=== PATIENT | male | born 1975 | race African-American/Black ===

== ENCOUNTER 2017-12-05 19:52 | Inpatient (IN) ==
[2017-12-05] MEDS ORDERED: Isovue-370 500 ML INFUS..BTL IV ONE (20:29)
[2017-12-05] MEDS ORDERED: Ondansetron 4 MG/2 ML VIAL IVP ONE (20:30)
[2017-12-05] MEDS ORDERED: *HR* FentaNYL (PF) 100 MCG/2 ML VIAL IVP ONE (20:30)
--- NOTE | 2017-12-05 20:31 | Emergency Department Note ---
Disposition Clinical Impression: SAGE (acute kidney injury), Left-sided chest wall pain UTI (urinary tract infection) Qualifiers: Urinary tract infection type: acute cystitis Hematuria presence: without hematuria Qualified Code(s): N30.00 - Acute cystitis without hematuria Disposition: Admitted As Inpatient Condition: Good Time of Disposition: 00:19 General Adult HPI - General Chief complaint: ED Abdominal Pain Stated complaint: L Flank Pain Time Seen by Provider: 12/05/17 20:01 Source: patient Limitations: no limitations Nursing Notes Reviewed: Yes Vital Signs Reviewed: Yes - History of Present Illness HPI Narrative: Patient seen yesterday here for left-sided back pain. States is been present for 2 days. Presenting with worsening of the pain. States it is in his left back and radiates around to his chest. Denies any shortness of breath. He reported episode of vomiting associated with this earlier today. No provoking or alleviating factors. Pain Scale: 0 - Related Data Home Medications Medication Instructions Recorded Confirmed Novolin 70-30 100 Unit/ml Vial 11/10/15 11/10/15 Insulin Glargine,Hum.rec.anlog 40 unit SQ DAILY 12/06/17 12/06/17 [Basaglar Kwikpen U-100] Losartan Potassium [Cozaar] 50 mg PO DAILY 12/06/17 12/06/17 hydrALAZINE [HydrALAZINE] 25 mg PO Q8HR 12/06/17 12/06/17 Previous Rx's Medication Instructions Recorded Furosemide [Lasix] 40 mg PO BID #14 tablet 12/03/17 NIFEdipine XL (24 HR) [Procardia 60 mg PO BID #60 tab.er.24 12/03/17 XL] Potassium Chloride 10 meq PO BID #14 tab.er.prt 12/03/17 Allergies Allergy/AdvReac Type Severity Reaction Status Date / Time No Known Allergies Allergy Verified 12/05/17 19:58 All systems ED: reviewed and negative except as stated. Constitutional: Reports: chills Cardiovascular: Denies: chest pain, syncope Respiratory: Denies: cough, dyspnea Gastrointestinal: Reports: nausea, vomiting. Denies: abdominal pain, diarrhea, hematemesis, melena, hematochezia Genitourinary: Denies: urgency, dysuria, frequency Musculoskeletal: Reports: back pain (Left upper) Integumentary: Denies: rash Neurological: Denies: weakness Past Medical History - Past Medical History Attestation: Yes The following information was validated with the patient. Source: patient Medical history: Reports: diabetes, hypertension Surgical history: Reports: cholecystectomy (Smokes marijuana) Psychiatric history: Reports: no psych history - Social History Smoking Status: Never smoker Smokeless Tobacco Status: No Alcohol use: Reports: none Drug use: Reports: none Physical Exam - General Limitations: no limitations General appearance: alert, in distress (Appears to be in pain. ) - Head Head exam: atraumatic, normocephalic, normal inspection - Eye Eye exam: Present: normal appearance, PERRL, EOMI - ENT ENT exam: normal exam, normal oropharynx, mucous membranes moist - Neck Neck exam: Present: normal inspection, full ROM, trachea midline - Chest Chest inspection: Present: normal inspection, symmetric chest wall rise. Absent : tenderness - Respiratory Respiratory exam: Present: normal lung sounds bilaterally. Absent: respiratory distress, accessory muscle use - Cardiovascular Cardiovascular exam: Present: regular rate, normal rhythm, normal heart sounds - Abdominal Exam Abdominal exam: Present: soft, Non-Tender. Absent: distention, guarding, rebound, rigidity, Ortega's sign, Rovsing's sign, tenderness at McBurney's Point - Extremities Exam Extremities exam: Present: normal inspection, full ROM, normal capillary refill. Absent: tenderness, pedal edema - Back Exam Back exam: Present: tenderness (Extreme tenderness to light palpation of the skin to the left back. Does appear to be in a dermatomal fashion. I am concerned there may be a possible erupting zoster. No rash present currently. Denies any tingling sensation.) - Neurological Exam Neurological exam: Present: alert, oriented X3 - Psychiatric Psychiatric exam: Present: normal affect, normal mood - Skin Skin exam: Present: warm, dry, intact, normal color. Absent: rash, cyanosis, diaphoresis, erythema Course Course Narrative: Male patient presenting to the emergency department complaining of left-sided back pain that radiates around into his chest area. Patient states he was seen here previously for this pain. Approximately 2 days ago. Patient complains of 4 episodes of vomiting earlier today. None since he has been here. Patient did have a CT of his abdomen on December 04 yesterday that showed bladder wall thickening. He does not have any signs of a UTI. He denies any urinary symptoms. Denies any abdominal pain at this time. He complains of the pain being mostly to his left back. When I were reviewed the notes from yesterday he describes the pain at that time as a tearing sensation. I did have a concern for possible aneurysms a CTA was performed of his chest and abdomen. This showed no signs of aneurysm. It showed some thickening of his bladder wall. Again no signs of urinary symptoms or UTI however we will send a urine at this time. Patient's lab workup is unremarkable. He did have a leukocytosis it is coming down. He does report some chills but no fever. Abdomen is soft and nontender on exam. The place where he points to his back that it hurts it is exquisitely tender to light palpation. As soon as I placed my fingers on his skin he describes pain. This is not bilateral. This is on the left side of his back and comes around to the side. There is no sternal pain. He denies any chest pain or shortness of breath. He does report pain to his back whenever he takes a deep breath however. There are no signs of zoster at this time however I am concerned that this may be erupting. Patient does have a healing ulcer as well to his right lower extremity. This appears well and not infected. We have provided patient with pain relief as well as anti- emetics. - Consultations Consultation #1: Dr Crespo accepted Pt in stable condition. Time: 23:49 Vital Signs Temperature 98.8 F 12/05/17 19:58 Pulse Rate 84 12/05/17 19:58 Respiratory Rate 20 12/05/17 19:58 Blood Pressure 130/76 12/05/17 19:58 O2 Sat by Pulse Oximetry 98 12/05/17 19:58 Temperature 99.2 F 12/06/17 03:58 Pulse Rate 83 12/06/17 03:58 Respiratory Rate 18 12/06/17 03:58 Blood Pressure 116/74 12/06/17 03:58 O2 Sat by Pulse Oximetry 93 12/06/17 03:58 Oxygen Delivery Oxygen Delivery Room Air Medical Decision Making - Medical Records Medical records reviewed: Yes I reviewed the patient's medical records. - Lab Data Lab results reviewed: Yes I reviewed the patient's lab results. Result diagrams: 12/06/17 01:42 12/06/17 01:42 Lab Results 12/05/17 12/05/17 12/05/17 Range/Units 20:08 20:49 20:49 WBC 13.1 H (4.3-11.1) K/mcL RBC 4.33 (4.19-5.50) M/mcL Hgb 12.0 L (12.9-16.9) g/dL Hct 36.4 L (37.5-50.1) % MCV 84.1 (83.0-100.0) fL MCH 27.7 L (28.0-33.3) pg MCHC 33.0 (31.6-35.5) g/dL RDW 13.1 (11.5-14.5) % Plt Count 276 (140-400) K/mcL MPV 9.8 (9.4-12.4) fL Immature Gran % 0.5 (0-4) % Seg Neutrophils % 82.6 % Lymphocytes % 5.8 % Monocytes % 9.1 % Eosinophils % 1.7 % Basophils % 0.3 % Neutrophils # 10.8 H (1.6-8.9) K/mcL Lymphocytes # 0.8 (0.6-4.6) K/mcL Monocytes # 1.2 (0.0-1.3) K/mcL Eosinophils # 0.2 (0.0-0.6) K/mcL Basophils # 0.0 (0.0-0.2) K/mcL Sodium 132 L (136-145) mEq/L Potassium 4.5 (3.5-5.1) mEq/L Chloride 103 (98-107) mEq/L Carbon Dioxide 22 L (23-29) mEq/L BUN 19 (6-20) mg/dL Creatinine 1.49 H (0.70-1.30) mg/dL Est GFR ( Amer) > 60 (> 60) Est GFR (Non-Af Amer) 52 L (> 60) BUN/Creatinine Ratio 13 (6-26) Glucose 165 H (70-105) mg/dL Calculated Osmolality 280 (280-300) Calcium 8.3 L (8.6-10.3) mg/dL Total Bilirubin 2.3 H (0.3-1.0) mg/dL Direct Bilirubin 0.4 H (0.0-0.2) mg/dL Indirect Bilirubin 1.9 H (0.0-1.2) mg/dL AST 23 (13-39) Units/L ALT 23 (7-52) Units/L Alkaline Phosphatase 107 H (34-104) Units/L Troponin I < 0.03 (< 0.04) ng/mL Serum Total Protein 5.7 L (6.4-8.9) g/dL Albumin 3.0 L (3.5-5.7) g/dL Globulin 2.7 (2.4-3.5) g/dL Albumin/Globulin Ratio 1.1 (1.1-2.2) Urine Color Dark Yellow (Yellow) Urine Clarity Cloudy A (Clear) Urine pH 7.5 (5.0-8.0) pH Units Ur Specific [place] 1.018 (1.010-1.025) Urine Protein >=1000 H (Neg-Trace) mg/dL Urine Glucose (UA) 100 H (Normal) mg/dL Urine Ketones Negative (Negative) mg/dL Urine Blood Negative (Negative) Urine Nitrite Negative (Negative) Urine Bilirubin Small H (Negative) Urine Urobilinogen Normal (Normal) mg/dL Ur Leukocyte Esterase Small H (Negative) Urine Microscopic RBC 5-15 H (0-3) per hpf Urine Microscopic WBC 50-100 H (0-3) per hpf Ur Squamous Epith Cells Many H (None-Few) per lpf Urine Bacteria Few (None-Few) per hpf Hyaline Casts None Seen (None-Few) per lpf Ur Culture Indicated? NO. A (NO) - Radiology Data Radiology results reviewed: Yes I reviewed the patient's radiology results. Abdomen/Pelvis CTA 12/05/17 20:29 IMPRESSION: 1. Unremarkable appearance of the aorta. 2. Marked interval progression with now extensive irregular bladder wall thickening and enhancement consistent with cystitis. Please correlate with urinalysis. 3. Mild prominence of the bilateral inguinal lymph nodes likely reactive in nature. 4. Cecum is relatively fluid-filled with mild wall enhancement suggesting possible low-grade nonspecific colitis. 5. Few incidental/chronic findings as detailed above. D/ / Ryan Lopez MD / Ryan Lopez MD Interpreting Provider: Ryan Lopez MD Chest CTA 12/05/17 20:29 IMPRESSION: 1. Unremarkable appearance of the aorta. 2. Marked interval progression with now extensive irregular bladder wall thickening and enhancement consistent with cystitis. Please correlate with urinalysis. 3. Mild prominence of the bilateral inguinal lymph nodes likely reactive in nature. 4. Cecum is relatively fluid-filled with mild wall enhancement suggesting possible low-grade nonspecific colitis. 5. Few incidental/chronic findings as detailed above. D/ / Ryna Lopez MD / Ryan Lopez MD Interpreting Provider: Ryan Lopez MD - EKG Data EKG #1 EKG attestation: Yes I reviewed and interpreted this EKG. EKG results narrative: Normal sinus rhythm at a rate 83. MN interval is 154. QRS duration is 77. QT is 351. QTC is 391. No signs of acute ischemia. No previous EKG to compare to.
[2017-12-05 20:59] LABS: Basophils % 0.3 %; Eosinophils # 0.2 K/mcL (0.0-0.6); Eosinophils % 1.7 %; Hematocrit 36.4 % (37.5-50.1); Immature Granulocytes % 0.5 % (0-4); Lymphocytes # 0.8 K/mcL (0.6-4.6); Lymphocytes % 5.8 %; Mean Corpuscular Hemoglobin 27.7 pg (28.0-33.3); Mean Corpuscular Volume 84.1 fL (83.0-100.0); Mean Platelet Volume 9.8 fL (9.4-12.4); Monocytes # 1.2 K/mcL (0.0-1.3); Monocytes % 9.1 %; Neutrophils # 10.8 K/mcL (1.6-8.9); Platelet Count 276 K/mcL (140-400); Red Blood Count 4.33 M/mcL (4.19-5.50); Red Cell Distribution Width 13.1 % (11.5-14.5); Segmented Neutrophils % 82.6 %
[2017-12-05 21:20] LABS: BUN/Creatinine Ratio 13 (6-26); Blood Urea Nitrogen 19 mg/dL (6-20); Carbon Dioxide 22 mEq/L (23-29); Chloride 103 mEq/L (98-107); Potassium 4.5 mEq/L (3.5-5.1); Sodium 132 mEq/L (136-145); eGFR For African Americans > 60 (> 60)
[2017-12-05 21:21] LABS: Calcium 8.3 mg/dL (8.6-10.3); Glucose 165 mg/dL (70-105); Osmolality,Calculated 280 (280-300); Troponin I < 0.03 ng/mL (< 0.04); eGFR For Non-African Americans 52 (> 60)
[2017-12-05 21:55] LABS: Alanine Aminotransferase 23 Units/L (7-52); Albumin/Globulin Ratio 1.1 (1.1-2.2); Alkaline Phosphatase 107 Units/L (34-104); Aspartate Amino Transferase 23 Units/L (13-39); Bilirubin,Direct 0.4 mg/dL (0.0-0.2); Bilirubin,Indirect 1.9 mg/dL (0.0-1.2); Bilirubin,Total 2.3 mg/dL (0.3-1.0); Globulin 2.7 g/dL (2.4-3.5); Total Protein 5.7 g/dL (6.4-8.9)
[2017-12-05] MEDS ORDERED: *HR* OxyCODONE/APAP 7.5/325 TABLET PO STA ×2 (22:49→22:56)
[2017-12-05 22:54] LABS: Bilirubin,Urine Small (Negative); Blood,Urine Negative (Negative); Clarity,Urine Cloudy (Clear); Color,Urine Dark Yellow (Yellow); Glucose,Urine (UA) 100 mg/dL (Normal); Ketones,Urine Negative (Negative); Leukocyte Esterase,Urine Small (Negative); Nitrite,Urine Negative (Negative); PH,Urine 7.5 pH Units (5.0-8.0); Protein,Urine >=1000 mg/dL (Neg-Trace); Specific Gravity,Urine 1.018 (1.010-1.025); Urobilinogen,Urine Normal (Normal)
[2017-12-05] MEDS ORDERED: *HR* HYDROcodone/Acet 7.5/325 mg TABLET PO STA (22:55)
[2017-12-05 22:56] LABS: Bacteria,Urine Few per hpf (None-Few); Hyaline Casts,Urine None Seen per lpf (None-Few); Squamous Epithelial Cell,Urine Many per lpf (None-Few); WBC,Urine 50-100 per hpf (0-3)
--- NOTE | 2017-12-06 00:20 | Emergency Department Note ---
Disposition Clinical Impression: SAGE (acute kidney injury), Left-sided chest wall pain UTI (urinary tract infection) Qualifiers: Urinary tract infection type: acute cystitis Hematuria presence: without hematuria Qualified Code(s): N30.00 - Acute cystitis without hematuria Disposition: Admitted As Inpatient Condition: Fair General Adult HPI - General Chief complaint: ED Abdominal Pain Stated complaint: L Flank Pain Time Seen by Provider: 12/05/17 20:01 Source: patient Limitations: no limitations Nursing Notes Reviewed: Yes Vital Signs Reviewed: Yes - History of Present Illness Pain Scale: 0 - Related Data Home Medications Medication Instructions Recorded Confirmed Novolin 70-30 100 Unit/ml Vial MDD per sliding scale 11/10/15 11/10/15 Insulin Glargine,Hum.rec.anlog 40 unit SQ DAILY 12/06/17 12/06/17 [Basaglar Kwikpen U-100] Losartan Potassium [Cozaar] 50 mg PO DAILY 12/06/17 12/06/17 hydrALAZINE [HydrALAZINE] 25 mg PO Q8HR 12/06/17 12/06/17 Previous Rx's Medication Instructions Recorded Furosemide [Lasix] 40 mg PO BID #14 tablet 12/03/17 NIFEdipine XL (24 HR) [Procardia 60 mg PO BID #60 tab.er.24 12/03/17 XL] Potassium Chloride 10 meq PO BID #14 tab.er.prt 12/03/17 Allergies Allergy/AdvReac Type Severity Reaction Status Date / Time No Known Allergies Allergy Verified 12/05/17 19:58 Past Medical History - Past Medical History Medical history: Reports: diabetes, hypertension Surgical history: Reports: cholecystectomy (Smokes marijuana) Psychiatric history: Reports: no psych history - Social History Smoking Status: Never smoker Smokeless Tobacco Status: No Alcohol use: Reports: none Drug use: Reports: none Physical Exam - General Limitations: no limitations General appearance: alert Course Vital Signs Temperature 98.8 F 12/05/17 19:58 Pulse Rate 84 12/05/17 19:58 Respiratory Rate 20 12/05/17 19:58 Blood Pressure 130/76 12/05/17 19:58 O2 Sat by Pulse Oximetry 98 12/05/17 19:58 Temperature 98.8 F 12/05/17 19:58 Pulse Rate 84 12/05/17 23:59 Respiratory Rate 18 12/05/17 23:59 Blood Pressure 155/94 12/05/17 23:59 O2 Sat by Pulse Oximetry 97 12/05/17 20:18 Oxygen Delivery Oxygen Delivery Room Air Medical Decision Making - Lab Data Result diagrams: 12/05/17 20:49 12/05/17 20:49 Lab Results 12/05/17 12/05/17 12/05/17 Range/Units 20:08 20:49 20:49 WBC 13.1 H (4.3-11.1) K/mcL RBC 4.33 (4.19-5.50) M/mcL Hgb 12.0 L (12.9-16.9) g/dL Hct 36.4 L (37.5-50.1) % MCV 84.1 (83.0-100.0) fL MCH 27.7 L (28.0-33.3) pg MCHC 33.0 (31.6-35.5) g/dL RDW 13.1 (11.5-14.5) % Plt Count 276 (140-400) K/mcL MPV 9.8 (9.4-12.4) fL Immature Gran % 0.5 (0-4) % Seg Neutrophils % 82.6 % Lymphocytes % 5.8 % Monocytes % 9.1 % Eosinophils % 1.7 % Basophils % 0.3 % Neutrophils # 10.8 H (1.6-8.9) K/mcL Lymphocytes # 0.8 (0.6-4.6) K/mcL Monocytes # 1.2 (0.0-1.3) K/mcL Eosinophils # 0.2 (0.0-0.6) K/mcL Basophils # 0.0 (0.0-0.2) K/mcL Sodium 132 L (136-145) mEq/L Potassium 4.5 (3.5-5.1) mEq/L Chloride 103 (98-107) mEq/L Carbon Dioxide 22 L (23-29) mEq/L BUN 19 (6-20) mg/dL Creatinine 1.49 H (0.70-1.30) mg/dL Est GFR ( Amer) > 60 (> 60) Est GFR (Non-Af Amer) 52 L (> 60) BUN/Creatinine Ratio 13 (6-26) Glucose 165 H (70-105) mg/dL Calculated Osmolality 280 (280-300) Calcium 8.3 L (8.6-10.3) mg/dL Total Bilirubin 2.3 H (0.3-1.0) mg/dL Direct Bilirubin 0.4 H (0.0-0.2) mg/dL Indirect Bilirubin 1.9 H (0.0-1.2) mg/dL AST 23 (13-39) Units/L ALT 23 (7-52) Units/L Alkaline Phosphatase 107 H (34-104) Units/L Troponin I < 0.03 (< 0.04) ng/mL Serum Total Protein 5.7 L (6.4-8.9) g/dL Albumin 3.0 L (3.5-5.7) g/dL Globulin 2.7 (2.4-3.5) g/dL Albumin/Globulin Ratio 1.1 (1.1-2.2) Urine Color Dark Yellow (Yellow) Urine Clarity Cloudy A (Clear) Urine pH 7.5 (5.0-8.0) pH Units Ur Specific [place] 1.018 (1.010-1.025) Urine Protein >=1000 H (Neg-Trace) mg/dL Urine Glucose (UA) 100 H (Normal) mg/dL Urine Ketones Negative (Negative) mg/dL Urine Blood Negative (Negative) Urine Nitrite Negative (Negative) Urine Bilirubin Small H (Negative) Urine Urobilinogen Normal (Normal) mg/dL Ur Leukocyte Esterase Small H (Negative) Urine Microscopic RBC 5-15 H (0-3) per hpf Urine Microscopic WBC 50-100 H (0-3) per hpf Ur Squamous Epith Cells Many H (None-Few) per lpf Urine Bacteria Few (None-Few) per hpf Hyaline Casts None Seen (None-Few) per lpf Ur Culture Indicated? NO. A (NO) Attestation Statement - Attestation Attestation: I, Ward Reyes MD, personally evaluated this patient and discussed their management with the resident physician. I reviewed the resident's note and agree with the documented findings, medical decision making, and plan of care. 42-year-old male presents to the emergency department with a complaint of severe pain in the left posterior lower chest wall and left flank area for 2 days. Patient was seen here yesterday for this same pain and had a CT of the abdomen and workup. He returns today because the pain is worse. No cough or shortness of breath. No fever. No actual abdominal pain. There has been some vomiting. No dysuria or gross hematuria. On examination patient is a well-developed obese male in no acute distress but does appear to be in moderate discomfort. He is alert and oriented 3. There is no diaphoresis. Breath sounds are clear and equal bilaterally. Heart regular rate and rhythm. Abdomen is soft and nontender with normal bowel sounds. There is marked tenderness to light touch over the left lower posterior chest wall and left flank area extending down onto the lateral tuft abdominal flank area. No rashes noted. Labs reviewed and actually seemed improved from his lab work yesterday other than he now appears to have a significant UTI which was not present yesterday and also has a moderate increase in his creatinine from yesterday from 1.19 to 1.49. CTA of the chest abdomen pelvis showed a marked progression in the thickening and irregularity of the bladder wall consistent with cystitis. Patient continued to have significant pain even after receiving pain medications. The hospitalist, Dr. Crespo, was consulted and accepted admission of the patient.
[2017-12-06] MEDS ORDERED: Acetaminophen 325 MG TABLET PO PRN (00:41)
[2017-12-06] MEDS ORDERED: traMADol 50 MG TABLET PO PRN (00:41)
[2017-12-06] MEDS ORDERED: Naloxone 0.4 MG/ML INJ IVP PRN (00:41)
[2017-12-06] MEDS ORDERED: *HR* OxyCODONE Immed Rel 5 MG TABLET PO PRN (00:41)
[2017-12-06] MEDS ORDERED: D5% in Water 1,000 ML IVC PRN (00:48)
[2017-12-06] MEDS ORDERED: *HR* Dextrose 50 % in Water (Syg) 50 ML SYRINGE IVP PRN (00:48)
[2017-12-06] MEDS ORDERED: Dextrose Gel 15 GM/37.5 ML TUBE PO PRN ×2 (00:48)
[2017-12-06 02:05] LABS: Basophils % 0.2 %; Eosinophils # 0.3 K/mcL (0.0-0.6); Hemoglobin 10.6 g/dL (12.9-16.9); Immature Granulocytes % 0.5 % (0-4); Lymphocytes % 7.4 %; Mean Corpuscular HGB Conc 33.1 g/dL (31.6-35.5); Mean Corpuscular Hemoglobin 27.1 pg (28.0-33.3); Mean Corpuscular Volume 81.8 fL (83.0-100.0); Mean Platelet Volume 9.8 fL (9.4-12.4); Monocytes # 1.4 K/mcL (0.0-1.3); Monocytes % 10.7 %; Neutrophils # 10.3 K/mcL (1.6-8.9); Platelet Count 255 K/mcL (140-400); Red Blood Count 3.91 M/mcL (4.19-5.50); Red Cell Distribution Width 13.3 % (11.5-14.5); Segmented Neutrophils % 79.2 %
[2017-12-06 02:12] LABS: INR 1.1; Prothrombin Time 12.5 Seconds (9.4-12.1)
[2017-12-06 02:32] LABS: Alanine Aminotransferase 24 Units/L (7-52); Albumin 2.8 g/dL (3.5-5.7); Alkaline Phosphatase 102 Units/L (34-104); Aspartate Amino Transferase 20 Units/L (13-39); BUN/Creatinine Ratio 12 (6-26); Bilirubin,Total 2.2 mg/dL (0.3-1.0); Blood Urea Nitrogen 18 mg/dL (6-20); Calcium 8.2 mg/dL (8.6-10.3); Carbon Dioxide 23 mEq/L (23-29); Chloride 103 mEq/L (98-107); Globulin 2.8 g/dL (2.4-3.5); Glucose 127 mg/dL (70-105); Osmolality,Calculated 277 (280-300); Potassium 4.3 mEq/L (3.5-5.1); Sodium 132 mEq/L (136-145); Total Protein 5.6 g/dL (6.4-8.9); eGFR For African Americans > 60 (> 60); eGFR For Non-African Americans 50 (> 60)
[2017-12-06] MEDS: 0.9 % Sodium Chloride 1,000 ML IVC SCH ×2 (02:35→20:44)
[2017-12-06] MEDS: cefTRIAXone 1,000 MG in Water for inj. (sterile) 20 ML 10 ML IVPB SCH ×2 (02:37→23:55)
--- NOTE | 2017-12-06 03:30 | Internal Med History&Physical ---
Date of Encounter: 12/06/17 Time of Encounter: 01:00 Internal Medicine - H&P: HPI Chief complaint: Left flank pain Admitted From: Home Plans for Post Hospital Care: Home History of present illness: Mr. Reynolds is a 42 year old male presented to ER for left side flank pain for 2 days. Past medical history is significant for diabetes and hypertension. Patient started to have left-sided flank pain since 2 days ago. The pain is sharp and burning. The pain is most likely on the surface of the skin. Patient is sensitive to touch. Patient has subjective fever. She also has nausea, and vomiting. The vomiting is liquid without dark color or blood in it. Patient denies black stool. Patient denies headache, sore throat, cough, diarrhea, or urination symptoms. Patient denies recent new medication prior to flank pain. Patient was started losartan yesterday but it is after the symptoms. In the emergency room, labs shows elevated bilirubin, mainly the indirect bilirubin. Patient has decreased hemoglobin level. CT abdomen shows cystitis. Patient also was found elevated creatinine level. Patient was suspected early shingles and was treated with acyclovir by ER physician. Patient was admitted for flank pain, UTI, and SAGE. Past Med Surg Social Fam HX - Past Medical History Medical history: diabetes, hypertension Psychiatric history: no psych history - Past Surgical History Surgical History: cholecystectomy Additional surgical history: toe amputation. rotator cuff. right leg - Social History Smoking Status: Never smoker Smokeless Tobacco Status: No Alcohol use: none Drug use: none - Family History Mother Hx Family Cardiac Disorders: Yes ([place], CVA) Hx Family Endocrine Disorder: Yes (DM) Hx Family Musculoskeletal Disorders: Yes (Osteoporosis) Father Hx Family Endocrine Disorder: Yes (DM) Sister Hx Family Endocrine Disorder: Yes (DM) Internal Medicine - H&P: Meds Novolin 70-30 100 Unit/ml Vial MDD per sliding scale 11/10/15 [History] Furosemide [Lasix] 40 mg PO BID #14 tablet 12/03/17 [Rx] NIFEdipine XL (24 HR) [Procardia XL] 60 mg PO BID #60 tab.er.24 12/03/17 [Rx] Potassium Chloride 10 meq PO BID #14 tab.er.prt 12/03/17 [Rx] Insulin Glargine,Hum.rec.anlog [Basaglar Kwikpen U-100] 40 unit SQ DAILY [History] Losartan Potassium [Cozaar] 50 mg PO DAILY 12/06/17 [History] hydrALAZINE [HydrALAZINE] 25 mg PO Q8HR 12/06/17 [History] 3 Allergy/AdvReac Type Severity Reaction Status Date / Time No Known Allergies Allergy Verified 12/05/17 19:58 All Systems PM: A 10-system review of systems was performed and is negative for pertinent findings except as documented above in the HPI. - Constitutional Vitals: Temp Pulse Resp BP Pulse Ox 100.2 F H 82 16 120/69 95 12/06/17 00:45 12/06/17 00:45 12/06/17 00:45 12/06/17 00:45 12/06/17 00:45 General appearance: Present: mild distress, A&O X 3, answers questions appropriately - Head Head exam: Present: atraumatic, normocephalic - Eye Eye exam: Present: PERRL, conjuntiva pink, sclera anicteric Pupils: Present: PERRL - Neck Neck exam general surgery: Present: supple, trachea midline. Absent: lymphadenopathy - Respiratory Respiratory exam: Present: CTAB. Absent: accessory muscle use, rales, rhonchi, wheezes - Cardiovascular Cardiovascular exam: Present: RRR, +S1, +S2. Absent: diastolic murmur, gallop, rubs, systolic murmur - GI/Abdominal GI/Abdominal exam: Present: normal bowel sounds, soft, no peritoneal signs. Absent: distended, tenderness - Extremities Exam Extremities exam: Present: warm, radial pulses palpable and symmetrical. Absent : calf tenderness, cyanotic, pedal edema - Neurological Exam Neurological exam: Present: CN II-XII intact, oriented X3, no focal deficits. Absent: pronater drift, facial droop, speech deficit - Skin Skin exam: Present: dry, intact Additional comments: Patient has shown left side flank area pain on light touch on the skin. No rashes. The pain area not cross the midline. Internal Med - H&P Results - Labs CBC & Chem 7: 12/06/17 01:42 12/06/17 01:42 Labs: Short CBC 12/06/17 Range/Units 01:42 WBC 13.0 H (4.3-11.1) K/mcL Hgb 10.6 L (12.9-16.9) g/dL Hct 32.0 L (37.5-50.1) % Plt Count 255 (140-400) K/mcL Neutrophils # 10.3 H (1.6-8.9) K/mcL BMP 12/06/17 01:42 Sodium 132 L Potassium 4.3 Chloride 103 Carbon Dioxide 23 BUN 18 Creatinine 1.55 H Glucose 127 H Calcium 8.2 L Liver Function 12/06/17 Range/Units 01:42 Total Bilirubin 2.2 H (0.3-1.0) mg/dL AST 20 (13-39) Units/L ALT 24 (7-52) Units/L Alkaline Phosphatase 102 (34-104) Units/L Albumin 2.8 L (3.5-5.7) g/dL - Assessment and plan (1) Acute left flank pain Current Visit: Yes Status: Acute Assessment and plan: Etiology is undetermined. The pain is on the surface, very sensitive to touch. Not across midline. Suspect early shingles. - Continue acyclovir po - Start gabapentin for neuropathic pain. - Continue pain control (2) Diabetes mellitus Current Visit: Yes Status: Acute Assessment and plan: Continue basal and sliding scale insulin coverage Qualifiers: Diabetes mellitus type: type 2 Diabetes mellitus prison insulin use: with internist medical doctor md use Diabetes mellitus complication status: without complication Qualified Code(s): E11.9 - Type 2 diabetes mellitus without complications; Z79.4 - long term (current) use of insulin (3) Hypertension Current Visit: Yes Status: Acute Assessment and plan: Continue home medications. Temporarily hold losartan at this point because of SAGE. Qualifiers: Hypertension type: essential hypertension Qualified Code(s): I10 - Essential (primary) hypertension (4) Anemia Current Visit: Yes Status: Acute Assessment and plan: Patient has significant hemoglobin drop: 13-12-10.3. Etiology is undetermined. Patient denies black stool or any bleeding. Patient has elevated indirect bilirubin, need to rule out hemolysis. - Check reticulocyte and LDH and peripheral smear. - Patient has normal platelet level. - Consult oncology. Qualifiers: Anemia type: unspecified type Qualified Code(s): D64.9 - Anemia, unspecified (5) DVT prophylaxis Current Visit: Yes Status: Acute Assessment and plan: Heparin subcutaneously (6) Hyperbilirubinemia Current Visit: No Status: Acute Assessment and plan: Etiology is undetermined. Patient has cholecystectomy already. The elevated bilirubin is mainly indirect bilirubin. - Need to rule out hemolysis as above - Continue closely monitor H&H level - Check US liver. (7) SAGE (acute kidney injury) Current Visit: Yes Status: Acute Assessment and plan: Mild elevated Cr. CT abd shows no obstruction or hydrnephrosis. Most likely multifactoral include dehydration b/o nausea and vomiting, recent started losartan, and iv contrast use. Will cont ivf at this point. As Cr level getting worse although IVF, will consult nephrology. (8) UTI (urinary tract infection) Current Visit: Yes Status: Acute Assessment and plan: UA shows UTI. CT abd shows worsen cystitis. Will start rocephin iv, f/u urine culture. Qualifiers: Urinary tract infection type: acute cystitis Hematuria presence: without hematuria Qualified Code(s): N30.00 - Acute cystitis without hematuria - Time Spent With Patient Total time spent is greater than 50% in coordination of care (as documented) at patient's floor/unit and/or counseling patient:
[2017-12-06] MEDS: *HR* Heparin 5,000 UNIT/ML VIAL SQ SCH ×2 (06:01→18:55)
[2017-12-06] MEDS: hydrALAZINE 25 MG TABLET PO SCH ×3 (06:01→20:22)
[2017-12-06 07:15] LABS: Immature Reticulocyte % 10.3 % (11.0-38.0); Retculocyte # 0.05 M/mcL (0.05-0.10); Reticulocyte % 1.2 % (1.6-2.8)
[2017-12-06 07:32] LABS: Albumin 2.6 g/dL (3.5-5.7); Bilirubin,Direct 0.4 mg/dL (0.0-0.2); Bilirubin,Indirect 1.3 mg/dL (0.0-1.2); Bilirubin,Total 1.7 mg/dL (0.3-1.0); Globulin 2.7 g/dL (2.4-3.5); Total Protein 5.3 g/dL (6.4-8.9)
[2017-12-06] MEDS ORDERED: Furosemide 40 MG TABLET PO SCH (08:00)
[2017-12-06] MEDS: Ondansetron 4 MG/2 ML VIAL IVP PRN ×2 (08:21→20:23)
[2017-12-06] MEDS ORDERED: Ondansetron ODT 4 MG TAB.RAPDIS SL PRN (12:03)
--- NOTE | 2017-12-06 12:38 | Nephrology Consult Note ---
Date of Encounter: 12/06/17 Time of Encounter: 12:00 Assessment and Plan (1) SAGE (acute kidney injury) Current Visit: Yes Status: Acute Elevated SCr (of note GFR still >60 in this AA male) in the setting of iv contrast with 200cc isovue given (elevated SCr noted right after), N/V and cystitis. Flank pain likely musculoskeletal given CT showing no signS of structural abnormalities though symptoms similar to that of pyelonephritis Proteinuria noted in UA might be related to his DM but will confirm with spot protein/creatinine Will check cpk and uric acid levels Will check urine studies Agree with IVF and holding losartan but will also hold lasix as well (2) Acute left flank pain Current Visit: Yes Status: Acute Does not appear renal related though symptoms like pyelonephritis but negative with CT (3) UTI (urinary tract infection) Current Visit: Yes Status: Acute Abx per primary team Qualifiers: Urinary tract infection type: acute cystitis Hematuria presence: without hematuria Qualified Code(s): N30.00 - Acute cystitis without hematuria History of Present Illness - Reason for Consult Consult date: 12/06/17 Acute Kidney Injury Requesting physician: Freedom Crespo - History of Present Illness 42 y o AAmale with PMH of DM admitted with acute left flank pain. he denies any history of kidney stones. No urinary sxs including hematuria but aware of proteinuria from pcp in the past. He does affirm associated N/V. He received CTA chest, abd/pelvis in the ED showing kidneys unremarkable but thickened bladder tolliver and signs of cystitis noted. Scr noted at 1.119, GFR >60 initially on admission worsening to 1.49 and 1.55 with GFR still >60. Past Med Surg Social Fam HX - Past Medical History Medical history: diabetes, hypertension Psychiatric history: no psych history - Past Surgical History Surgical History: cholecystectomy (Smokes marijuana) Additional surgical history: toe amputation. rotator cuff. right leg - Social History Smoking Status: Never smoker Smokeless Tobacco Status: No Alcohol use: none Drug use: none - Family History Mother Hx Family Cardiac Disorders: Yes ([place], CVA) Hx Family Endocrine Disorder: Yes (DM) Hx Family Musculoskeletal Disorders: Yes (Osteoporosis) Father Hx Family Endocrine Disorder: Yes (DM) Sister Hx Family Endocrine Disorder: Yes (DM) Medications and Allergies Furosemide [Lasix] 40 mg PO BID #14 tablet 12/03/17 [Rx] NIFEdipine XL (24 HR) [Procardia XL] 60 mg PO BID #60 tab.er.24 12/03/17 [Rx] Potassium Chloride 10 meq PO BID #14 tab.er.prt 12/03/17 [Rx] Insulin ASPART [Novolog Flexpen] 6 - 14 units SQ TIDWM 12/06/17 [History] Insulin Glargine,Hum.rec.anlog [Basaglar Kwikpen U-100] 40 unit SQ DAILY [History] Losartan Potassium [Cozaar] 50 mg PO DAILY 12/06/17 [History] hydrALAZINE [HydrALAZINE] 25 mg PO Q8HR 12/06/17 [History] 3 Allergy/AdvReac Type Severity Reaction Status Date / Time No Known Allergies Allergy Verified 12/05/17 19:58 Review of Systems All Systems: reviewed and no additional remarkable complaints except as stated ( 10 systems revieed and noted in HPI) Exam - Vital Signs Vital signs: Initial Vital Signs Temp Pulse Resp BP Pulse Ox 98.8 F 84 20 130/76 98 12/05/17 19:58 12/05/17 19:58 12/05/17 19:58 12/05/17 19:58 12/05/17 19:58 Vital Signs - Last 8 Hours Temp Pulse Resp BP Pulse Ox 12/06/17 11:55 98.8 F 84 16 144/74 98 12/06/17 07:24 98.5 F 84 15 152/77 99 Intake and Output 12/05/17 12/06/17 12/06/17 23:59 07:59 15:59 Intake Total 100 / 100 560 / 560 Output Total 500 / 500 Balance -400 / -400 560 / 560 Intake: Oral 100 / 100 560 / 560 Output: Urine 500 / 500 Other: Meal Breakfast Percent of Meal Consumed 0% Weight 142.882 kg Blood Glucose* 129 126 Patient Weight 12/06/17 23:59 Weight 142.882 kg - General Appearance General appearance: well-developed, well-nourished, moderate distress EENT: ATNC, mucous membranes dry Neck: no JVD, supple Respiratory: clear Cardiology: edema, normal S1, normal S2 Gastrointestinal: no tenderness, no guarding, costovertebral (L tenderness) Integumentary: warm and dry Neurologic: no focal deficit Musculoskeletal: no deformities Psychiatric: mood/affect appropriate, cooperative Results - Lab Results 12/10/17 08:02 12/10/17 08:02 Most recent lab results Calcium 8.2 mg/dL (8.6-10.3) L 12/06/17 01:42 Magnesium 1.8 mg/dL (1.6-2.6) 12/06/17 01:42 Consult Discharge Plan - Plan Referrals: Truong Humphries DO [Primary Care Provider] - 12/20/17 10:40 am
[2017-12-06 13:02] LABS: Uric Acid 8.6 mg/dL (2.3-7.6)
[2017-12-06] MEDS ORDERED: *HR* Promethazine 25 MG/ML VIAL IVP PRN (15:28)
[2017-12-06] MEDS: Insulin LISPRO 300 UNITS/3 ML VIAL SQ SCH ×3 (15:41→21:57)
[2017-12-06] MEDS: Insulin DETEMIR 100 UNIT/ML X5UNITS SQ SCH (15:42)
[2017-12-06] MEDS: NIFEdipine XL (24 HR) 60 MG TAB.ER.24 PO SCH ×2 (15:43→22:00)
[2017-12-06] MEDS: Gabapentin 300 MG CAPSULE PO SCH ×3 (15:43→20:22)
[2017-12-06] MEDS: Ketorolac 30 MG/ML VIAL IVP SCH ×2 (16:10→23:57)
[2017-12-06] MEDS: Sennosides/Docusate Sodium TABLET PO PRN (20:22)
[2017-12-07] MEDS: *HR* Heparin 5,000 UNIT/ML VIAL SQ SCH ×2 (06:10→16:30)
[2017-12-07] MEDS: Ketorolac 30 MG/ML VIAL IVP SCH ×2 (06:10→12:52)
[2017-12-07] MEDS: hydrALAZINE 25 MG TABLET PO SCH ×3 (06:11→21:40)
--- NOTE | 2017-12-07 08:41 | Electrocardiograph Report ---
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
[2017-12-07] MEDS: Insulin LISPRO 300 UNITS/3 ML VIAL SQ SCH ×4 (09:06→21:46)
[2017-12-07] MEDS: NIFEdipine XL (24 HR) 60 MG TAB.ER.24 PO SCH ×2 (09:37→21:43)
[2017-12-07] MEDS: Ondansetron 4 MG/2 ML VIAL IVP PRN (09:39)
[2017-12-07] MEDS: Insulin DETEMIR 100 UNIT/ML X5UNITS SQ SCH (09:42)
--- NOTE | 2017-12-07 11:01 | Nephrology Progress Note ---
<Dinora Cardenas Mattie - Last Filed: 12/07/17 11:02> Date of Encounter: 12/07/17 Time of Encounter: 10:55 - Assessment and Plan (1) SAGE (acute kidney injury) Current Visit: Yes Status: Acute GFR remains normal for , Scr 1.55 Patient states he use to take a lot of NSAIDS until his doctor told him to stop Has never been told he had protein in urine until just a couple days ago in the ED PCP is Truong Kim from [facility] 500ml yesterday; 300ml already today Renal ultrasound ordered Continue to hold Lasix (2) Acute left flank pain Current Visit: Yes Status: Acute per primary team (3) Hypertension Current Visit: Yes Status: Acute per primary team Qualifiers: Hypertension type: essential hypertension Qualified Code(s): I10 - Essential (primary) hypertension Subjective Principal diagnosis: SAGE, flank pain Interval history: Patient seen and examined. States he is feeling a little better Objective - Vital Signs Vital signs: Vital Signs Temp Pulse Resp BP Pulse Ox 12/07/17 06:41 98.6 F 85 15 120/73 95 12/07/17 04:04 98.7 F 86 18 164/95 99 12/06/17 19:22 99.2 F 80 18 149/85 95 12/06/17 15:33 98.8 F 85 16 159/81 97 12/06/17 11:55 98.8 F 84 16 144/74 98 Intake and Output 12/06/17 12/07/17 12/07/17 23:59 07:59 15:59 Intake Total 0 / 0 300 / 300 1000 / 1000 Output Total 320 / 320 Balance 0 / 0 -20 / -20 1000 / 1000 Intake: IV Fluids 1000 / 1000 Oral 0 / 0 300 / 300 Output: Urine 320 / 320 Other: Meal Dinner npo Percent of Meal Consumed 25% Weight 145 kg Blood Glucose* 100 87 - General Appearance General appearance: Present: well-developed, well-nourished EENT: Present: ATNC, mucous membranes moist, hearing intact, vision intact Neck: Present: supple Respiratory: Present: clear Cardiology: Present: edema, normal S1, normal S2 Gastrointestinal: Present: no tenderness, no guarding Integumentary: Present: warm and dry Neurologic: Present: alert and oriented x3 Psychiatric: Present: mood/affect appropriate, cooperative - Lab 12/06/17 01:42 12/06/17 01:42 Most recent lab results Calcium 8.2 mg/dL (8.6-10.3) L 12/06/17 01:42 Magnesium 1.8 mg/dL (1.6-2.6) 12/06/17 01:42 Consult Discharge Plan - Plan Referrals: Truong Humphries DO [Primary Care Provider] - 12/20/17 10:40 am <Davin Urbina - Last Filed: 12/10/17 12:33> Date of Encounter: 12/07/17 - Assessment and Plan (1) SAGE (acute kidney injury) Current Visit: Yes Status: Acute (2) Acute left flank pain Current Visit: Yes Status: Acute (3) UTI (urinary tract infection) Current Visit: Yes Status: Acute Qualifiers: Urinary tract infection type: acute cystitis Hematuria presence: without hematuria Qualified Code(s): N30.00 - Acute cystitis without hematuria Objective - Vital Signs Vital signs: Vital Signs Temp Pulse Resp BP Pulse Ox 12/10/17 11:13 99.2 F 91 15 158/89 98 12/10/17 06:58 97.9 F 92 14 160/85 99 12/10/17 03:30 98.0 F 91 18 150/78 97 12/09/17 23:20 98.3 F 91 17 168/99 98 12/09/17 19:19 98.1 F 92 18 162/103 98 12/09/17 14:12 98.8 F 92 16 152/92 97 Intake and Output 12/09/17 12/10/17 12/10/17 23:59 07:59 15:59 Intake Total 1650 / 1650 1690 / 1690 360 / 360 Output Total 300 / 300 1750 / 1750 1000 / 1000 Balance 1350 / 1350 -60 / -60 -640 / -640 Intake: IV Fluids 1010 / 1010 1010 / 1010 0.9 % Sodium Chloride 1,000 ML 1000 / 1000 1000 / 1000 @ 100 mls/hr IVC .Q10H ANTONIO Rx#: [id number] Rocephin 1,000 MG In Water for inj. (sterile) 10 ML @ 300 mls/ hr IVPB Q24H ANTONIO Rx#:[id number] Oral 640 / 640 680 / 680 360 / 360 Output: Urine 300 / 300 1750 / 1750 1000 / 1000 Other: Meal REFUSED DINNER Breakfast Percent of Meal Consumed 10% Weight 146.4 kg Blood Glucose* 114 143 112 Patient Weight 12/10/17 23:59 Weight 146.4 kg - Lab 12/10/17 08:02 12/10/17 08:02 Most recent lab results Calcium 8.1 mg/dL (8.6-10.3) L 12/10/17 08:02 Magnesium 1.7 mg/dL (1.6-2.6) 12/10/17 08:02 Urine Creatinine 117 mg/dL 12/08/17 21:00 Urine Sodium 33.9 mEq/L 12/08/17 21:00 Urine Total Protein 326 mg/dL (1-14) H 12/08/17 21:00 - Attending Attestation I examined this patient and my medical decision-making was reviewed with the Resident Physician/HYDRAULIC STRAINER OPERATOR. I agree with the documented findings, disposition and treatment plan as described except to the extent set forth below. Pt seen nd examined feeling a little better. On exam less L flank tenderness noted. Labs wee delayed this am but returned drastically elevated at 4.28 from 1.55 the day prior suspect recent dye load +/-NSAIDs and N/V. Will obtain US of kidney. Discussed at length worsening renal fxn and the possible need for GRAINING OPERATOR if this continues.
--- NOTE | 2017-12-07 13:12 | Oncology Inp Consult Note ---
<PlascenciaZabrina L - Last Filed: 12/07/17 14:14> Date of Encounter: 12/07/17 Time of Encounter: 12:30 Assessment and Plan (1) UTI (urinary tract infection) Status: Acute Assessment and plan: CT abdomen/pelvis notes bladder wall thickening and prominent bilateral inguinal lymph nodes-presumed to be reactive. Urine culture pending-treating with ceftriaxone SAGE-renal US pending Nephrology on board-notes reviewed Qualifiers: Urinary tract infection type: acute cystitis Hematuria presence: without hematuria Qualified Code(s): N30.00 - Acute cystitis without hematuria (2) Hyperbilirubinemia Status: Acute Assessment and plan: Improving since admission, etiology unclear Reports subjective fevers/chills, fatigue, decreased appetite, generalized malaise, continues to experience nausea/vomiting (scheduled zofran to assist with this, continue phenergan for breakthrough), denies abdominal pain other than skin tenderness to left flank area Check hepatitis panel Liver ultrasound unremarkable, s/p cholecystectomy LDH is normal-blood smear pending-low suspicion for hemolysis-check Horacio Supportive treatment, may consider GI consultation if needed per primary hospitalist (3) Anemia Status: Acute Assessment and plan: Mild, stable, microcytic anemia LDH is normal-indirect bili improving-overall low suspicion for hemolytic anemia , suspect hyperbilirubinemia is of other unrelated etiology-Horacio pending. Blood Smear and occult stool pending Check anemia workup including iron profile, ferritin, folate and B12- further recommendations pending results Monitor CBC Please refer to Dr. Montanez's attestation below for additional details Qualifiers: Anemia type: unspecified type Qualified Code(s): D64.9 - Anemia, unspecified - Data of Consult Patient: new to practice Consult date: 12/07/17 Requesting Physician: Mj Coleman Primary Care Provider: Truong Humphries DO - Consult Narrative Reason for consult: Anemia History of present illness: Mr. Reynolds is a 42 year old male with past medical history significant for diabetes and HTN. He presented to [facility] ER on 12/06/2017 with report of left flank pain x2 days. He describes the pain as sharp/burning and is localized to the surface of the skin. He reports subjective fevers/chills prior to admission, along with nausea/vomiting, decreased appetite, headache and fatigue. He denies melena, hematochezia, hematemesis, rash, body aches, diarrhea, abdominal pain, chest pain or SOB. In the ER he was noted to have hyperbilirubinemia-predominantly elevated indirect bilirubin, mild anemia, CT abdomen which revealed cystitis, UA concerning for UTI, and elevated creatinine. Skin sensitivity is suspicious for early shingles and treating with acyclovir per ER. He denies history of alcohol or drug abuse. He denies history of GIB or anemia. He recently was prescribed losartan for HTN about 3 months ago and has been experiencing worsening edema since that time, medication has since been stopped. He know has a superficial LLE ulcer-patient states this is secondary to his edema, new within past week Past Med Surg Social Fam HX - Past Medical History Medical history: diabetes, hypertension Psychiatric history: no psych history - Past Surgical History Surgical History: cholecystectomy (Smokes marijuana) Additional surgical history: toe amputation. rotator cuff. right leg - Social History Smoking Status: Never smoker Smokeless Tobacco Status: No Alcohol use: none Drug use: none - Family History Mother Hx Family Cardiac Disorders: Yes ([place], CVA) Hx Family Endocrine Disorder: Yes (DM) Hx Family Musculoskeletal Disorders: Yes (Osteoporosis) Father Hx Family Endocrine Disorder: Yes (DM) Sister Hx Family Endocrine Disorder: Yes (DM) Medications and Allergies Furosemide [Lasix] 40 mg PO BID #14 tablet 12/03/17 [Rx] NIFEdipine XL (24 HR) [Procardia XL] 60 mg PO BID #60 tab.er.24 12/03/17 [Rx] Potassium Chloride 10 meq PO BID #14 tab.er.prt 12/03/17 [Rx] Insulin ASPART [Novolog Flexpen] 6 - 14 units SQ TIDWM 12/06/17 [History] Insulin Glargine,Hum.rec.anlog [Basaglar Kwikpen U-100] 40 unit SQ DAILY [History] Losartan Potassium [Cozaar] 50 mg PO DAILY 12/06/17 [History] hydrALAZINE [HydrALAZINE] 25 mg PO Q8HR 12/06/17 [History] 3 Allergy/AdvReac Type Severity Reaction Status Date / Time No Known Allergies Allergy Verified 12/05/17 19:58 Constitutional: Present: anorexia, chills, fatigue, fever(s), headache(s), malaise, weakness. Absent: weight loss Eyes: Absent: change in vision Cardiovascular: Absent: chest pain, palpitations Respiratory: Absent: cough, dyspnea, hemoptysis Gastrointestinal: Present: as per HPI, constipation, nausea, vomiting. Absent: abdominal pain, diarrhea, dysphagia, hematemesis, hematochezia, melena Additional comments: denies dysuria or hematuria Musculoskeletal: Present: muscle weakness Integumentary: Present: as per HPI, other Additional comments: left flank skin tenderness-radiates to back- as per HPI, no skin lesions noted Neurological: Present: as per HPI, disequilibrium, dizziness, headache(s). Absent: focal weakness, numbness, tingling Psychiatric: Present: as per HPI Hematologic/Lymphatic: Present: as per HPI Oncology - Exam - Constitutional Vitals: Temp Pulse Resp BP Pulse Ox 98.0 F 89 15 189/116 97 12/07/17 10:58 12/07/17 10:58 12/07/17 10:58 12/07/17 10:58 12/07/17 10:58 General appearance: cooperative, no acute distress, no febrile Exam: appears uncomfortable due to nausea/vomiting - Head Head exam: Present: atraumatic - Respiratory Respiratory exam: Present: CTAB. Absent: respiratory distress - Cardiovascular Cardiovascular exam: Present: RRR, +S1, +S2 - GI/Abdominal GI/Abdominal exam: Present: normal bowel sounds, soft. Absent: guarding, rebound, tenderness Additional comments: no abdominal tenderness but tenderness to palpation of left flank/mid axillary - Extremities Exam Extremities exam: Present: pedal edema. Absent: calf tenderness Additional comments: 1-2+ pitting edema to BLE-superficial skin ulcer to lateral left LE - Neurological Exam Neurological exam: Present: alert, oriented X3, strengths equal and symetr throughout. Absent: no focal deficits - Psychiatric Psychiatric exam: Present: normal affect, normal mood - Skin Skin exam: Present: dry, normal color, warm Consult Discharge Plan - Plan Referrals: Truong Humphries, [Primary Care Provider] - <Lemuel Chaparro - Last Filed: 12/07/17 16:26> Date of Encounter: 12/07/17 - Data of Consult Requesting Physician: Mj M Sobieraj Primary Care Provider: Truong Humphries, DO - Consult Narrative History of present illness: Anemia, the setting of possible UTI with mild indirect bilirubinemia does not appear that the patient is hemolyzing. We will complete anemia workup and follow-up. Lab works prior to the hemoglobin of 10 during this hospitalization was normal. I examined this patient and my medical decision-making was reviewed with the Advanced Practice Nurse, Zabrina Plascencia. I agree with the documented findings, disposition and treatment plan as described except to the extent set forth below. Oncology - Exam - Constitutional Vitals: Temp Pulse Resp BP Pulse Ox 98.5 F 88 15 179/96 97 12/07/17 13:59 12/07/17 13:59 12/07/17 13:59 12/07/17 13:59 12/07/17 13:59 Oncology - Results Labs: 3 12/07/17 12/07/17 12/07/17 13:20 13:20 13:20 WBC RBC Hgb Hct MCV MCH MCHC RDW Plt Count MPV Reticulocyte # Immature Gran % Seg Neutrophils % Lymphocytes % Monocytes % Eosinophils % Basophils % Neutrophils # Lymphocytes # Monocytes # Eosinophils # Basophils # Smear Path Review Percent Retic Immature Retic Fraction Retic Hgb Equivalent PT INR Sodium 130 L Potassium 4.7 Chloride 99 Carbon Dioxide 21 L BUN 26 H Creatinine 4.28 H Est GFR ( Amer) 19 L Est GFR (Non-Af Amer) 15 L BUN/Creatinine Ratio 6 Glucose 77 POC Glucose Calculated Osmolality 274 L Uric Acid Calcium 8.2 L Magnesium Iron 23 L % Saturation 11 L Transferrin 148 L Ferritin 210 Total Bilirubin Direct Bilirubin Indirect Bilirubin AST ALT Alkaline Phosphatase Lactate Dehydrogenase Creatine Kinase Serum Total Protein Albumin Globulin Albumin/Globulin Ratio Lipase Vitamin B12 707 Folate 10.2 Hep Bs Antigen Nonreactive REILLY, Poly Interpret NEG 3 12/06/17 12/06/17 12/06/17 21:03 16:54 11:55 WBC RBC Hgb Hct MCV MCH MCHC RDW Plt Count MPV Reticulocyte # Immature Gran % Seg Neutrophils % Lymphocytes % Monocytes % Eosinophils % Basophils % Neutrophils # Lymphocytes # Monocytes # Eosinophils # Basophils # Smear Path Review Percent Retic Immature Retic Fraction Retic Hgb Equivalent PT INR Sodium Potassium Chloride Carbon Dioxide BUN Creatinine Est GFR ( Amer) Est GFR (Non-Af Amer) BUN/Creatinine Ratio Glucose POC Glucose 100 H 99 126 H Calculated Osmolality Uric Acid Calcium Magnesium Iron % Saturation Transferrin Ferritin Total Bilirubin Direct Bilirubin Indirect Bilirubin AST ALT Alkaline Phosphatase Lactate Dehydrogenase Creatine Kinase Serum Total Protein Albumin Globulin Albumin/Globulin Ratio Lipase Vitamin B12 Folate Hep Bs Antigen REILLY, Poly Interpret 3 12/06/17 12/06/17 12/06/17 07:22 06:47 06:47 WBC RBC Hgb Hct MCV MCH MCHC RDW Plt Count MPV Reticulocyte # 0.05 Immature Gran % Seg Neutrophils % Lymphocytes % Monocytes % Eosinophils % Basophils % Neutrophils # Lymphocytes # Monocytes # Eosinophils # Basophils # Smear Path Review Percent Retic 1.2 L Immature Retic Fraction 10.3 L Retic Hgb Equivalent 29.4 PT INR Sodium Potassium Chloride Carbon Dioxide BUN Creatinine Est GFR ( Amer) Est GFR (Non-Af Amer) BUN/Creatinine Ratio Glucose POC Glucose 129 H Calculated Osmolality Uric Acid 8.6 H Calcium Magnesium Iron % Saturation Transferrin Ferritin Total Bilirubin 1.7 H Direct Bilirubin 0.4 H Indirect Bilirubin 1.3 H AST 18 ALT 22 Alkaline Phosphatase 91 Lactate Dehydrogenase 162 Creatine Kinase 162 Serum Total Protein 5.3 L Albumin 2.6 L Globulin 2.7 Albumin/Globulin Ratio 1.0 L Lipase 11 Vitamin B12 Folate Hep Bs Antigen REILLY, Poly Interpret 3 12/06/17 12/06/17 12/06/17 02:24 01:42 01:42 WBC RBC Hgb Hct MCV MCH MCHC RDW Plt Count MPV Reticulocyte # Immature Gran % Seg Neutrophils % Lymphocytes % Monocytes % Eosinophils % Basophils % Neutrophils # Lymphocytes # Monocytes # Eosinophils # Basophils # Smear Path Review See Below Percent Retic Immature Retic Fraction Retic Hgb Equivalent PT INR Sodium 132 L Potassium 4.3 Chloride 103 Carbon Dioxide 23 BUN 18 Creatinine 1.55 H Est GFR ( Amer) > 60 Est GFR (Non-Af Amer) 50 L BUN/Creatinine Ratio 12 Glucose 127 H POC Glucose Calculated Osmolality 277 L Uric Acid Calcium 8.2 L Magnesium 1.8 Iron % Saturation Transferrin Ferritin Total Bilirubin 2.2 H Direct Bilirubin Indirect Bilirubin AST 20 ALT 24 Alkaline Phosphatase 102 Lactate Dehydrogenase Creatine Kinase Serum Total Protein 5.6 L Albumin 2.8 L Globulin 2.8 Albumin/Globulin Ratio 1.0 L Lipase Vitamin B12 Folate Hep Bs Antigen REILLY, Poly Interpret 3 12/06/17 12/06/17 01:42 01:42 WBC 13.0 H RBC 3.91 L Hgb 10.6 L Hct 32.0 L MCV 81.8 L MCH 27.1 L MCHC 33.1 RDW 13.3 Plt Count 255 MPV 9.8 Reticulocyte # Immature Gran % 0.5 Seg Neutrophils % 79.2 Lymphocytes % 7.4 Monocytes % 10.7 Eosinophils % 2.0 Basophils % 0.2 Neutrophils # 10.3 H Lymphocytes # 1.0 Monocytes # 1.4 H Eosinophils # 0.3 Basophils # 0.0 Smear Path Review Percent Retic Immature Retic Fraction Retic Hgb Equivalent PT 12.5 H INR 1.1 Sodium Potassium Chloride Carbon Dioxide BUN Creatinine Est GFR ( Amer) Est GFR (Non-Af Amer) BUN/Creatinine Ratio Glucose POC Glucose Calculated Osmolality Uric Acid Calcium Magnesium Iron % Saturation Transferrin Ferritin Total Bilirubin Direct Bilirubin Indirect Bilirubin AST ALT Alkaline Phosphatase Lactate Dehydrogenase Creatine Kinase Serum Total Protein Albumin Globulin Albumin/Globulin Ratio Lipase Vitamin B12 Folate Hep Bs Antigen REILLY, Poly Interpret
[2017-12-07] MEDS ORDERED: Ketorolac 30 MG/ML VIAL IVP PRN (13:31)
[2017-12-07 14:11] LABS: Calcium 8.2 mg/dL (8.6-10.3); Potassium 4.7 mEq/L (3.5-5.1)
[2017-12-07 14:34] LABS: Folate 10.2 ng/mL (3.0-16.0)
[2017-12-07 14:35] LABS: Vitamin B12 707 pg/mL (250-1100)
[2017-12-07] MEDS: Leptospermum Honey Gel 44 ML TUBE TP SCH ×2 (14:46→23:01)
[2017-12-07 15:39] LABS: Hepatitis B Surface Antigen Nonreactive (Nonreactive)
[2017-12-07] MEDS: Ondansetron 4 MG/2 ML VIAL IVP SCH (16:27)
[2017-12-07] MEDS: 0.9 % Sodium Chloride 1,000 ML IVC SCH (16:27)
[2017-12-07] MEDS: Gabapentin 300 MG CAPSULE PO SCH ×2 (16:27→21:40)
--- NOTE | 2017-12-07 17:58 | Internal Med Progress Note ---
Date of Encounter: 12/07/17 Time of Encounter: 17:57 - Assessment and plan (1) SAGE (acute kidney injury) Current Visit: Yes Status: Acute (2) Acute left flank pain Current Visit: Yes Status: Acute (3) Type 2 diabetes mellitus Current Visit: Yes Status: Acute Qualifiers: Diabetes mellitus fpc insulin use: with termite control representative use Diabetes mellitus complication status: without complication Qualified Code(s): E11.9 - Type 2 diabetes mellitus without complications; Z79.4 - exterminator termite (current) use of insulin (4) Hypertension Current Visit: Yes Status: Acute Qualifiers: Hypertension type: essential hypertension Qualified Code(s): I10 - Essential (primary) hypertension (5) Hyperbilirubinemia Current Visit: No Status: Acute - Time Spent With Patient Total time spent is greater than 50% in coordination of care (as documented) at patient's floor/unit and/or counseling patient: 25 - 35 minutes - Subjective Interval history: .. The patient continues to have a lot of pain located in the area of the left flank. The pain seems to be very superficial. It is associated with hyperesthesia of the skin in that area. Otherwise, he denies having other abdominal pain. Denies nausea and vomiting. He makes good amounts of urine. Denies chest pain. Denies difficulty breathing, coughing and wheezing. OBJECTIVE: .. Skin: Free of rash and discoloration ENMT: Oral/pharyngeal mucosa is normal in appearance. Eyes: Sclera is white. There is no discharge from eyes. Respiratory: Normal breath sounds; no crackles or wheezes. CV: Heart is regular; no gallop or murmur. GI: Abdomen is soft and not tender. There is no palpable mass or visceromegaly. Neuro: There is no focal deficits. ASSESSMENT AND PLAN: .. Acute kidney injury. His creatinine from today is 4.28. It was 1.55 yesterday and 1.49 admission. Ultrasound of kidneys is unremarkable. See nephrology consult. Will start IV fluids. We will stop her acyclovir, IV Toradol, Lasix and potassium chloride. Acute left flank pain. We suspected him to have early shingles. I cannot see any skin lesions in that area. Acyclovir will be stopped due to developing acute kidney injury. Type 2 diabetes mellitus. His fingersticks for glucose are mildly elevated. We will keep him on diabetes diet. We will continue Levemir and when necessary Humalog. Hypertension. He was taking lisinopril at home. 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 We will give him something different, if needed. Mild hyperbilirubinemia. It is mostly indirect. We will repeat hepatic panel tomorrow morning. - Constitutional Vitals: Temp Pulse Resp BP Pulse Ox 98.5 F 88 15 179/96 97 12/07/17 13:59 12/07/17 13:59 12/07/17 13:59 12/07/17 13:59 12/07/17 13:59 General appearance: Present: mild distress, A&O X 3, answers questions appropriately Internal Medicine: Result - Labs CBC & Chem 7: 12/06/17 01:42 12/07/17 13:20 Labs: BMP 12/07/17 13:20 Sodium 130 L Potassium 4.7 Chloride 99 Carbon Dioxide 21 L BUN 26 H Creatinine 4.28 H Glucose 77 Calcium 8.2 L - ABG Interpretation ABG results: PT/INR, D-dimer PT 12.5 Seconds (9.4-12.1) H 12/06/17 01:42 - Impressions Impressions Liver Ultrasound 12/07/17 09:00 IMPRESSION: Unremarkable right upper quadrant ultrasound. Status post cholecystectomy. D/ / Rosa Keys MD / Rosa Keys MD Interpreting Provider: Rosa Keys MD Consult Discharge Plan - Plan Referrals: Truong Humphries DO [Primary Care Provider] -
[2017-12-08] MEDS: Ondansetron 4 MG/2 ML VIAL IVP SCH ×4 (00:44→23:33)
[2017-12-08] MEDS: cefTRIAXone 1,000 MG in Water for inj. (sterile) 20 ML 10 ML IVPB SCH (00:44)
[2017-12-08] MEDS: 0.9 % Sodium Chloride 1,000 ML IVC SCH ×2 (00:48→21:20)
[2017-12-08 01:46] LABS: Hematocrit 32.3 % (37.5-50.1); Hemoglobin 10.8 g/dL (12.9-16.9); Mean Corpuscular HGB Conc 33.4 g/dL (31.6-35.5); Mean Corpuscular Hemoglobin 26.8 pg (28.0-33.3); Mean Corpuscular Volume 80.1 fL (83.0-100.0); Mean Platelet Volume 9.7 fL (9.4-12.4); Platelet Count 313 K/mcL (140-400); Red Blood Count 4.03 M/mcL (4.19-5.50)
[2017-12-08 02:03] LABS: Calcium 8.1 mg/dL (8.6-10.3); Potassium 4.7 mEq/L (3.5-5.1)
[2017-12-08 02:26] LABS: Hepatitis A Antibody IgM Nonreactive (Nonreactive); Hepatitis B Core IgM Nonreactive (Nonreactive)
[2017-12-08] MEDS: *HR* Heparin 5,000 UNIT/ML VIAL SQ SCH ×2 (06:47→16:57)
[2017-12-08] MEDS: hydrALAZINE 25 MG TABLET PO SCH ×2 (06:48→14:34)
[2017-12-08] MEDS: Insulin LISPRO 300 UNITS/3 ML VIAL SQ SCH ×4 (08:32→21:19)
[2017-12-08] MEDS: Insulin DETEMIR 100 UNIT/ML X5UNITS SQ SCH (08:32)
[2017-12-08] MEDS: NIFEdipine XL (24 HR) 60 MG TAB.ER.24 PO SCH ×2 (08:33→22:50)
[2017-12-08] MEDS: Gabapentin 300 MG CAPSULE PO SCH ×2 (08:33→14:34)
[2017-12-08] MEDS: Venlafaxine XR (24 HR) 75 MG CAP.ER.24H PO SCH (08:33)
[2017-12-08] MEDS: Leptospermum Honey Gel 44 ML TUBE TP SCH ×2 (08:34→21:19)
[2017-12-08 14:44] LABS: Complement Component 3 135 mg/dL (88-201); Complement Component 4 66 mg/dL (10-40)
[2017-12-08] MEDS ORDERED: OXYCODONE Oral CONC 10 MG/0.5 ML ORAL.SYG SL PRN (14:49)
--- NOTE | 2017-12-08 16:18 | Oncology Inp Progress Note ---
Date of Encounter: 12/08/17 Time of Encounter: 10:00 (1) UTI (urinary tract infection) Current Visit: Yes Status: Acute Assessment and plan: CT abdomen/pelvis notes bladder wall thickening and prominent bilateral inguinal lymph nodes-presumed to be reactive. Urine culture pending-treating with ceftriaxone Worsening SAGE-renal US shows no hydronephrosis, Circumferential urinary bladder wall thickening Nephrology on board-appreciate continued recommendations Qualifiers: Urinary tract infection type: acute cystitis Hematuria presence: without hematuria Qualified Code(s): N30.00 - Acute cystitis without hematuria (2) Hyperbilirubinemia Current Visit: No Status: Acute Assessment and plan: Improving since admission, etiology unclear but do not believe this is secondary to hemolytic anemia in question during consultation Hepatitis C pending. Liver ultrasound unremarkable, s/p cholecystectomy LDH is normal-blood smear pending-Horacio negative- does not appear consistent with hemolysis Continue supportive treatment, may consider GI consultation if needed per primary hospitalist team for continued nausea, vomiting or if bili does not continue to improve (3) Anemia Current Visit: Yes Status: Acute Assessment and plan: Mild, stable, microcytic anemia As discussed above, does not appear consistent with hemolytic anemia and more likely consistent with acute infectious process and SAGE, suspect hyperbilirubinemia is of other unrelated etiology Blood Smear and occult stool pending The above plan was discussed with Dr. Montanez who agreed with plan of care. Hematology will otherwise sign off, please feel free to contact for any future concerns. Qualifiers: Anemia type: unspecified type Qualified Code(s): D64.9 - Anemia, unspecified Oncology: Subj Interval history: Mr. Reynolds is feeling slightly improved today. Continues to report nausea and vomiting. Assessed patient along with hospitalist in room. Denies abdominal pain , headache, SOB, chest pain. No new symptoms. No s/s bleeding. - Constitutional Vitals: Vital Signs Temp Pulse Resp BP Pulse Ox 12/08/17 15:22 97.9 F 84 17 152/81 97 12/08/17 11:56 97.8 F 87 20 158/93 97 12/08/17 07:51 98.1 F 83 16 147/79 94 12/08/17 03:04 98.0 F 88 15 168/94 97 12/07/17 23:34 97.9 F 79 15 145/80 98 12/07/17 19:14 97.6 F 78 15 151/81 97 Intake and Output 12/08/17 12/08/17 12/08/17 07:59 15:59 23:59 Intake Total 1360 / 1360 0 / 0 Output Total 300 / 300 0 / 0 Balance 1060 / 1060 0 / 0 Intake: IV Fluids 1000 / 1000 0.9 % Sodium Chloride 1,000 ML 1000 / 1000 @ 100 mls/hr IVC .Q10H ANTONIO Rx#: [id number] Oral 360 / 360 0 / 0 Output: Urine 300 / 300 0 / 0 Other: Meal keep Percent of Meal Consumed 25% Weight 146.4 kg Blood Glucose* 57 103 Patient Weight 12/08/17 23:59 Weight 146.4 kg General appearance: cooperative, no acute distress, no febrile - Head Head exam: Present: atraumatic - ENT ENT exam: Present: mucous membranes moist - Respiratory Respiratory exam: Present: CTAB. Absent: respiratory distress - Cardiovascular Cardiovascular exam: Present: RRR, +S1, +S2 - GI/Abdominal GI/Abdominal exam: Present: normal bowel sounds, soft. Absent: guarding, rebound, tenderness - Extremities Exam Extremities exam: Absent: calf tenderness Additional comments: BLE edema 2+, superficial ulcer to lateral LLE with dressing intact - Neurological Exam Neurological exam: Present: alert, oriented X3, no focal deficits, strengths equal and symetr throughout - Psychiatric Psychiatric exam: Present: normal affect, normal mood - Skin Skin exam: Present: dry, intact, normal color, warm Oncology: Obj Data - Labs CBC & Chem 7: 12/08/17 01:25 12/08/17 01:25 - Impressions Impressions Retroperitoneum Ultrasound 12/07/17 19:30 IMPRESSION: 1. Normal sonographic appearance of the kidneys. 2. No hydronephrosis. 3. Mild prostatomegaly. 4. Circumferential urinary bladder wall thickening may relate to underdistention but can also be seen in the setting of chronic bladder outlet obstruction or cystitis. Correlation with urinalysis is advised. 5. Postvoid residual urinary bladder volume of 69 cc. D/ / Iekr Andrade / Iker Andrade Interpreting Provider: Iker Andrade - ABG Interpretation ABG results: PT/INR, D-dimer PT 12.5 Seconds (9.4-12.1) H 12/06/17 01:42 Consult Discharge Plan - Plan Referrals: Truong Humphries DO [Primary Care Provider] - 12/20/17 10:40 am
--- NOTE | 2017-12-08 16:37 | Nephrology Progress Note ---
Date of Encounter: 12/08/17 Time of Encounter: 14:00 - Assessment and Plan (1) SAGE (acute kidney injury) Current Visit: Yes Status: Acute SCr worse after large dye load of 200cc of isovue in a dehydrated patient discussed at length poor renal fxn and the possible need for SPEECH WRITER if worsening UOP documented at 320cc in the past 24hrs, unclear if accurate US of kidney unremarkable Still awaiting urine studies ordered 2 days ago! Continue to avoid nephrotoxins if possible Continue IVF for now (2) Acute left flank pain Current Visit: Yes Status: Acute Not kidney related (3) Nausea & vomiting Current Visit: Yes Status: Acute per primary team Qualifiers: Vomiting type: unspecified Vomiting Intractability: intractable Qualified Code(s): R11.2 - Nausea with vomiting, unspecified (4) UTI (urinary tract infection) Current Visit: Yes Status: Acute abx per primary team Qualifiers: Urinary tract infection type: acute cystitis Hematuria presence: without hematuria Qualified Code(s): N30.00 - Acute cystitis without hematuria Subjective Principal diagnosis: SAGE, flank pain Interval history: Pt seen and examined feels slightly better though with N/V. Slightly less L flank pain as well. Objective - Vital Signs Vital signs: Vital Signs Temp Pulse Resp BP Pulse Ox 12/08/17 15:22 97.9 F 84 17 152/81 97 12/08/17 11:56 97.8 F 87 20 158/93 97 12/08/17 07:51 98.1 F 83 16 147/79 94 12/08/17 03:04 98.0 F 88 15 168/94 97 12/07/17 23:34 97.9 F 79 15 145/80 98 12/07/17 19:14 97.6 F 78 15 151/81 97 Intake and Output 12/08/17 12/08/17 12/08/17 07:59 15:59 23:59 Intake Total 1360 / 1360 0 / 0 Output Total 300 / 300 0 / 0 Balance 1060 / 1060 0 / 0 Intake: IV Fluids 1000 / 1000 0.9 % Sodium Chloride 1,000 ML 1000 / 1000 @ 100 mls/hr IVC .Q10H ANTONIO Rx#: [id number] Oral 360 / 360 0 / 0 Output: Urine 300 / 300 0 / 0 Other: Meal keep Percent of Meal Consumed 25% Weight 146.4 kg Blood Glucose* 57 103 Patient Weight 12/08/17 23:59 Weight 146.4 kg - General Appearance General appearance: Present: well-developed, well-nourished, moderate distress EENT: Present: ATNC, mucous membranes moist Neck: Present: no JVD, supple Respiratory: Present: clear Cardiology: Present: edema, normal S1, normal S2 Gastrointestinal: Present: no tenderness, no guarding, costovertebral (L tenderness) Integumentary: Present: warm and dry Neurologic: Present: no focal deficit Musculoskeletal: Present: no deformities Psychiatric: Present: mood/affect appropriate, cooperative - Lab 12/10/17 08:02 12/10/17 08:02 Most recent lab results Calcium 8.1 mg/dL (8.6-10.3) L 12/08/17 01:25 Magnesium 1.8 mg/dL (1.6-2.6) 12/06/17 01:42 Consult Discharge Plan - Plan Referrals: Truong Humphries DO [Primary Care Provider] - 12/20/17 10:40 am
[2017-12-08] MEDS ORDERED: Ondansetron 4 MG/2 ML VIAL IVP ONE (21:04)
[2017-12-08] MEDS ORDERED: *HR* LORazepam 2 MG/ML VIAL IVP ONE (23:56)
[2017-12-09] MEDS: cefTRIAXone 1,000 MG in Water for inj. (sterile) 20 ML 10 ML IVPB SCH (00:55)
[2017-12-09 01:47] LABS: Creatinine,Urine 117 mg/dL; Microalbumin,Urine > 1350 mg/L; Protein/Creatinine Ratio,Urine 2.79 mg/mg (0.00-0.20); Sodium, Urine 33.9 mEq/L
[2017-12-09] MEDS: *HR* Heparin 5,000 UNIT/ML VIAL SQ SCH ×2 (05:16→17:25)
[2017-12-09 08:13] LABS: Basophils % 0.1 %; Eosinophils % 0.1 %; Hematocrit 34.7 % (37.5-50.1); Hemoglobin 11.9 g/dL (12.9-16.9); Immature Granulocytes % 0.6 % (0-4); Lymphocytes % 12.4 %; Mean Corpuscular HGB Conc 34.3 g/dL (31.6-35.5); Mean Corpuscular Hemoglobin 27.7 pg (28.0-33.3); Mean Corpuscular Volume 80.9 fL (83.0-100.0); Mean Platelet Volume 9.8 fL (9.4-12.4); Monocytes # 0.6 K/mcL (0.0-1.3); Neutrophils # 6.3 K/mcL (1.6-8.9); Platelet Count 339 K/mcL (140-400); Red Blood Count 4.29 M/mcL (4.19-5.50); Segmented Neutrophils % 78.8 %
[2017-12-09 08:16] LABS: Magnesium 1.9 mg/dL (1.6-2.6); Potassium 4.7 mEq/L (3.5-5.1)
--- NOTE | 2017-12-09 08:57 | Oncology Inp Progress Note ---
Date of Encounter: 12/09/17 Time of Encounter: 08:00 (1) Anemia Current Visit: Yes Status: Acute Assessment and plan: Anemia-mild bilirubinemia, renal insufficiency without any further decline. His B12 folic acid ferritin levels are normal. Renal insufficiency stable with some improvement, pending w/u. Results/plan d/w patient bedside Qualifiers: Anemia type: unspecified type Qualified Code(s): D64.9 - Anemia, unspecified Oncology: Subj Interval history: Patient reports that he is somewhat better. He is constipated. He denies any dysuria or hematuria. - Constitutional Vitals: Vital Signs Temp Pulse Resp BP Pulse Ox 12/09/17 06:45 98.5 F 88 18 154/85 94 12/09/17 03:00 98.3 F 88 16 158/87 98 12/08/17 22:58 98.3 F 91 15 161/80 98 12/08/17 18:53 97.9 F 88 15 159/85 98 12/08/17 15:22 97.9 F 84 17 152/81 97 12/08/17 11:56 97.8 F 87 20 158/93 97 Intake and Output 12/08/17 12/09/17 12/09/17 23:59 07:59 15:59 Intake Total 0 / 0 0 / 0 Output Total 0 / 0 700 / 700 Balance 0 / 0 -700 / -700 Intake: Oral 0 / 0 0 / 0 Output: Urine 0 / 0 700 / 700 Other: Weight 146.1 kg Blood Glucose* 85 67 64 General appearance: no acute distress, obese - Head Head exam: Present: atraumatic - Eye Eye exam: Present: sclera anicteric - ENT ENT exam: Present: mucous membranes dry, normal oropharynx - Respiratory Respiratory exam: Present: CTAB - Cardiovascular Cardiovascular exam: Present: +S1, +S2 - GI/Abdominal GI/Abdominal exam: Present: normal bowel sounds, soft - Extremities Exam Extremities exam: Present: pedal edema Additional comments: cr changes - Neurological Exam Neurological exam: Present: alert, CN II-XII intact, oriented X3, no focal deficits Oncology: Obj Data - Labs CBC & Chem 7: 12/09/17 05:05 12/09/17 05:05 Labs: Laboratory Results - last 24 hr 12/07/17 12/08/17 12/08/17 06:31 12:00 16:28 WBC RBC Hgb Hct MCV MCH MCHC RDW Plt Count MPV Immature Gran % Seg Neutrophils % Lymphocytes % Monocytes % Eosinophils % Basophils % Neutrophils # Lymphocytes # Monocytes # Eosinophils # Basophils # Sodium Potassium Chloride Carbon Dioxide BUN Creatinine Est GFR ( Amer) Est GFR (Non-Af Amer) BUN/Creatinine Ratio Glucose POC Glucose 103 H 93 Calculated Osmolality Calcium Magnesium Ur Eosinophil Smear Urine Creatinine Urine Microalbumin Microalb/Creat Ratio Protein/Creatinin Ratio Urine Sodium Urine Total Protein Complement C3 135 Complement C4 66 H 12/08/17 12/08/17 12/08/17 20:27 21:00 23:30 WBC RBC Hgb Hct MCV MCH MCHC RDW Plt Count MPV Immature Gran % Seg Neutrophils % Lymphocytes % Monocytes % Eosinophils % Basophils % Neutrophils # Lymphocytes # Monocytes # Eosinophils # Basophils # Sodium Potassium Chloride Carbon Dioxide BUN Creatinine Est GFR ( Amer) Est GFR (Non-Af Amer) BUN/Creatinine Ratio Glucose POC Glucose 81 85 Calculated Osmolality Calcium Magnesium Ur Eosinophil Smear Urine Creatinine 117 Urine Microalbumin > 1350 Microalb/Creat Ratio TNP Protein/Creatinin Ratio 2.79 H Urine Sodium 33.9 Urine Total Protein 326 H Complement C3 Complement C4 12/09/17 12/09/17 12/09/17 05:05 05:05 05:40 WBC 8.0 RBC 4.29 Hgb 11.9 L Hct 34.7 L MCV 80.9 L MCH 27.7 L MCHC 34.3 RDW 13.0 Plt Count 339 MPV 9.8 Immature Gran % 0.6 Seg Neutrophils % 78.8 Lymphocytes % 12.4 Monocytes % 8.0 Eosinophils % 0.1 Basophils % 0.1 Neutrophils # 6.3 Lymphocytes # 1.0 Monocytes # 0.6 Eosinophils # 0.0 Basophils # 0.0 Sodium 131 L Potassium 4.7 Chloride 102 Carbon Dioxide 20 L BUN 32 H Creatinine 4.79 H Est GFR ( Amer) 16 L Est GFR (Non-Af Amer) 14 L BUN/Creatinine Ratio 7 Glucose 75 POC Glucose Calculated Osmolality 278 L Calcium 8.0 L Magnesium 1.9 Ur Eosinophil Smear 0 Urine Creatinine Urine Microalbumin Microalb/Creat Ratio Protein/Creatinin Ratio Urine Sodium Urine Total Protein Complement C3 Complement C4 12/09/17 12/09/17 07:31 08:05 WBC RBC Hgb Hct MCV MCH MCHC RDW Plt Count MPV Immature Gran % Seg Neutrophils % Lymphocytes % Monocytes % Eosinophils % Basophils % Neutrophils # Lymphocytes # Monocytes # Eosinophils # Basophils # Sodium Potassium Chloride Carbon Dioxide BUN Creatinine Est GFR ( Amer) Est GFR (Non-Af Amer) BUN/Creatinine Ratio Glucose POC Glucose 67 L 64 L Calculated Osmolality Calcium Magnesium Ur Eosinophil Smear Urine Creatinine Urine Microalbumin Microalb/Creat Ratio Protein/Creatinin Ratio Urine Sodium Urine Total Protein Complement C3 Complement C4 - ABG Interpretation ABG results: PT/INR, D-dimer PT 12.5 Seconds (9.4-12.1) H 12/06/17 01:42 Consult Discharge Plan - Plan Referrals: Truong Humphries DO [Primary Care Provider] - 12/20/17 10:40 am
[2017-12-09] MEDS: Leptospermum Honey Gel 44 ML TUBE TP SCH (09:49)
[2017-12-09] MEDS: Ondansetron 4 MG/2 ML VIAL IVP SCH ×2 (09:49→16:04)
[2017-12-09] MEDS: NIFEdipine XL (24 HR) 60 MG TAB.ER.24 PO SCH ×2 (09:49→20:17)
[2017-12-09] MEDS: Venlafaxine XR (24 HR) 75 MG CAP.ER.24H PO SCH (09:49)
[2017-12-09] MEDS: Insulin LISPRO 300 UNITS/3 ML VIAL SQ SCH ×4 (09:50→20:19)
[2017-12-09] MEDS: 0.9 % Sodium Chloride 1,000 ML IVC SCH ×3 (09:58→21:45)
[2017-12-09 11:07] LABS: ANA IgG by ELISA NONE DETECTED (None Detected)
[2017-12-09] MEDS: *HR* HYDROcodone/Acet 5/325 mg TABLET PO PRN (16:08)
--- NOTE | 2017-12-09 16:19 | Nephrology Progress Note ---
Date of Encounter: 12/09/17 Time of Encounter: 12:00 - Assessment and Plan (1) SAGE (acute kidney injury) Current Visit: Yes Status: Acute SCr slightly improved at 4.79, GFR 16, hopefully for renal ecovery at this point but too soon to fully confirm discussed at length poor renal fxn and the possible need for BUFFING MACHINE TENDER if worsening UOp documented at 300cc in the past 24hrs, but 700cc already today urine shows sub-nephrotic range proteinuria, likely from DM. Await ANCA and antiGBM results. Hepatitis panel noted. MICHELLE negative and complements unremarkable Continue to avoid nephrotoxins if possible Continue IVF for now (2) UTI (urinary tract infection) Current Visit: Yes Status: Acute abx per primary team Qualifiers: Urinary tract infection type: acute cystitis Hematuria presence: without hematuria Qualified Code(s): N30.00 - Acute cystitis without hematuria (3) Acute left flank pain Current Visit: Yes Status: Acute Not kidney related Subjective Principal diagnosis: SAGE, flank pain Interval history: Pt seen and examined with N/V today. Less L flank pain overall. Objective - Vital Signs Vital signs: Vital Signs Temp Pulse Resp BP Pulse Ox 12/09/17 14:12 98.8 F 92 16 152/92 97 12/09/17 10:35 98.0 F 92 18 180/103 100 12/09/17 06:45 98.5 F 88 18 154/85 94 12/09/17 03:00 98.3 F 88 16 158/87 98 12/08/17 22:58 98.3 F 91 15 161/80 98 12/08/17 18:53 97.9 F 88 15 159/85 98 Intake and Output 12/09/17 12/09/17 12/09/17 07:59 15:59 23:59 Intake Total 1000 / 1000 360 / 360 Output Total 700 / 700 850 / 850 Balance 300 / 300 -490 / -490 Intake: IV Fluids 1000 / 1000 0.9 % Sodium Chloride 1,000 ML 1000 / 1000 @ 100 mls/hr IVC .Q10H ANTONIO Rx#: [id number] Oral 0 / 0 360 / 360 Output: Urine 700 / 700 850 / 850 Other: Meal Breakfast Percent of Meal Consumed 25% # Voids 1 Blood Glucose* 67 86 - General Appearance General appearance: Present: well-developed, well-nourished (milddistress due to nuasea) EENT: Present: ATNC, mucous membranes moist Neck: Present: no JVD, supple Respiratory: Present: clear Cardiology: Present: edema, normal S1, normal S2 Gastrointestinal: Present: no tenderness, no guarding, costovertebral (left, mild) Integumentary: Present: warm and dry Neurologic: Present: no focal deficit Musculoskeletal: Present: no deformities Psychiatric: Present: mood/affect appropriate, cooperative - Lab 12/10/17 08:02 12/10/17 08:02 Most recent lab results Calcium 8.0 mg/dL (8.6-10.3) L 12/09/17 05:05 Magnesium 1.9 mg/dL (1.6-2.6) 12/09/17 05:05 Urine Creatinine 117 mg/dL 12/08/17 21:00 Urine Sodium 33.9 mEq/L 12/08/17 21:00 Urine Total Protein 326 mg/dL (1-14) H 12/08/17 21:00 Consult Discharge Plan - Plan Referrals: Truong Humphries DO [Primary Care Provider] - 12/20/17 10:40 am
[2017-12-09] MEDS: Metoclopramide 10 MG/2 ML VIAL IVP SCH (17:25)
[2017-12-09] MEDS: Gabapentin 300 MG CAPSULE PO SCH (20:17)
[2017-12-09] MEDS: Sennosides/Docusate Sodium TABLET PO PRN (20:25)
--- NOTE | 2017-12-09 21:13 | Internal Med Progress Note ---
Date of Encounter: 12/08/17 Time of Encounter: 19:00 - Assessment and plan (1) SAEG (acute kidney injury) Current Visit: Yes Status: Acute (2) Acute left flank pain Current Visit: Yes Status: Acute (3) Type 2 diabetes mellitus Current Visit: Yes Status: Acute Qualifiers: Diabetes mellitus fdc insulin use: with vermin exterminator use Diabetes mellitus complication status: without complication Qualified Code(s): E11.9 - Type 2 diabetes mellitus without complications; Z79.4 - superintendent marine oil terminal (current) use of insulin (4) Hypertension Current Visit: Yes Status: Acute Qualifiers: Hypertension type: essential hypertension Qualified Code(s): I10 - Essential (primary) hypertension (5) Hyperbilirubinemia Current Visit: No Status: Acute - Time Spent With Patient Total time spent is greater than 50% in coordination of care (as documented) at patient's floor/unit and/or counseling patient: 25 - 35 minutes - Subjective Interval history: .. His left flank pain has decreased quite a bit in intensity. The pain seems to be very superficial. It is associated with hyperesthesia of the skin in that area. He complains of nausea and vomiting. They started to get very with left flank pain before this admission. Denies chest pain. Denies difficulty breathing. OBJECTIVE: .. Skin: Free of rash and discoloration. ENMT: Oral/pharyngeal mucosa is normal in appearance. Eyes: Sclera is white. There is no discharge from eyes. Respiratory: Normal breath sounds; no crackles or wheezes. CV: Heart is regular; no gallop or murmur. GI: Abdomen is soft and not tender. There is no palpable mass or visceromegaly. Neuro: There is no focal deficits. ASSESSMENT AND PLAN: .. Acute kidney injury. His creatinine has increased again. It is 4.94 today. It was 4.28 yesterday. See nephrology notes. He gets IV fluids. We stopped his acyclovir, IV Toradol, Lasix and potassium. We will monitor his kidney function closely. Acute left flank pain. We suspected him to have early shingles. I cannot see any skin lesions in that area. We stopped acyclovir. We will keep him on Lyrica and Effexor XR. Type 2 diabetes mellitus. His fingersticks for glucose are mildly elevated. We will keep him on diabetes diet. We will continue Levemir and when necessary Humalog. Hypertension. He was taking lisinopril at home. 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 We will give him something different, if needed. Mild hyperbilirubinemia. It is mostly indirect. See hematology notes. - Constitutional Vitals: Temp Pulse Resp BP Pulse Ox 98.1 F 92 18 162/103 98 12/09/17 19:19 12/09/17 19:19 12/09/17 19:19 12/09/17 19:19 12/09/17 19:19 General appearance: Present: mild distress, A&O X 3, answers questions appropriately Internal Medicine: Result - Labs CBC & Chem 7: 12/09/17 05:05 12/09/17 05:05 Labs: Short CBC 12/09/17 Range/Units 05:05 WBC 8.0 (4.3-11.1) K/mcL Hgb 11.9 L (12.9-16.9) g/dL Hct 34.7 L (37.5-50.1) % Plt Count 339 (140-400) K/mcL Neutrophils # 6.3 (1.6-8.9) K/mcL BMP 12/09/17 05:05 Sodium 131 L Potassium 4.7 Chloride 102 Carbon Dioxide 20 L BUN 32 H Creatinine 4.79 H Glucose 75 Calcium 8.0 L - ABG Interpretation ABG results: PT/INR, D-dimer PT 12.5 Seconds (9.4-12.1) H 12/06/17 01:42 Consult Discharge Plan - Plan Referrals: Truong Humphries DO [Primary Care Provider] - 12/20/17 10:40 am
--- NOTE | 2017-12-09 21:26 | Internal Med Progress Note ---
Date of Encounter: 12/09/17 Time of Encounter: 19:00 - Assessment and plan (1) SAGE (acute kidney injury) Current Visit: Yes Status: Acute (2) Acute left flank pain Current Visit: Yes Status: Acute (3) Nausea & vomiting Current Visit: Yes Status: Acute Qualifiers: Vomiting type: unspecified Vomiting Intractability: intractable Qualified Code(s): R11.2 - Nausea with vomiting, unspecified (4) Type 2 diabetes mellitus Current Visit: Yes Status: Acute Qualifiers: Diabetes mellitus superintendent terminal insulin use: with detention use Diabetes mellitus complication status: without complication Qualified Code(s): E11.9 - Type 2 diabetes mellitus without complications; Z79.4 - senior living (current) use of insulin (5) Hypertension Current Visit: Yes Status: Acute Qualifiers: Hypertension type: essential hypertension Qualified Code(s): I10 - Essential (primary) hypertension - Time Spent With Patient Total time spent is greater than 50% in coordination of care (as documented) at patient's floor/unit and/or counseling patient: - Subjective Interval history: .. He complains of severe nausea and vomiting. It looks like the Zofran is not working for him. He has very limited results with IV Phenergan. His left flank pain is mild in intensity. Denies chest pain. Denies difficulty breathing. He has no coughing or wheezing. He makes good amount of urine. OBJECTIVE: .. Skin: Free of rash and discoloration. ENMT: Oral/pharyngeal mucosa is normal in appearance. Eyes: Sclera is white. There is no discharge from eyes. Respiratory: Normal breath sounds; no crackles or wheezes. CV: Heart is regular; no gallop or murmur. GI: Abdomen is soft and not tender. There is no palpable mass or visceromegaly. Neuro: There is no focal deficits. ASSESSMENT AND PLAN: .. Acute kidney injury. Nonoliguric. His creatinine from today is a 4.79; 4.94 yesterday. His bicarb is 20. Sodium is 131. Potassium is 4.7. Nausea and vomiting. Intractable. It could be caused by his acute kidney injury. We will try scheduled IV Reglan. He may have developed some diabetic gastroparesis. Acute left flank pain. We suspected him to have early shingles. I cannot see any skin lesions in that area. We stopped acyclovir. We will keep him on Lyrica and Effexor XR. He may have some kind of neuropathic pain, due to his ongoing diabetes mellitus. Type 2 diabetes mellitus. His fingersticks from today are between 64 and 114. He is on diabetic diet and when necessary Humalog. Hypertension. He was taking lisinopril at home. It will be substituted with Procardia XL. - Constitutional Vitals: Temp Pulse Resp BP Pulse Ox 98.1 F 92 18 162/103 98 12/09/17 19:19 12/09/17 19:19 12/09/17 19:19 12/09/17 19:19 12/09/17 19:19 General appearance: Present: mild distress, A&O X 3, answers questions appropriately Internal Medicine: Result - Labs CBC & Chem 7: 12/09/17 05:05 12/09/17 05:05 Labs: Short CBC 12/09/17 Range/Units 05:05 WBC 8.0 (4.3-11.1) K/mcL Hgb 11.9 L (12.9-16.9) g/dL Hct 34.7 L (37.5-50.1) % Plt Count 339 (140-400) K/mcL Neutrophils # 6.3 (1.6-8.9) K/mcL BMP 12/09/17 05:05 Sodium 131 L Potassium 4.7 Chloride 102 Carbon Dioxide 20 L BUN 32 H Creatinine 4.79 H Glucose 75 Calcium 8.0 L - ABG Interpretation ABG results: PT/INR, D-dimer PT 12.5 Seconds (9.4-12.1) H 12/06/17 01:42 Consult Discharge Plan - Plan Referrals: Truong Humphries DO [Primary Care Provider] - 12/20/17 10:40 am
[2017-12-10] MEDS: Ondansetron 4 MG/2 ML VIAL IVP SCH ×4 (01:04→23:54)
[2017-12-10] MEDS: Metoclopramide 10 MG/2 ML VIAL IVP SCH ×5 (01:04→23:53)
[2017-12-10] MEDS: cefTRIAXone 1,000 MG in Water for inj. (sterile) 20 ML 10 ML IVPB SCH (01:05)
[2017-12-10] MEDS: *HR* Heparin 5,000 UNIT/ML VIAL SQ SCH ×2 (06:35→18:17)
[2017-12-10] MEDS: Leptospermum Honey Gel 44 ML TUBE TP SCH ×3 (06:50→21:56)
[2017-12-10] MEDS: 0.9 % Sodium Chloride 1,000 ML IVC SCH ×2 (08:08→18:18)
[2017-12-10] MEDS: NIFEdipine XL (24 HR) 60 MG TAB.ER.24 PO SCH ×2 (08:09→21:46)
[2017-12-10] MEDS: Venlafaxine XR (24 HR) 75 MG CAP.ER.24H PO SCH (08:09)
[2017-12-10] MEDS: Insulin LISPRO 300 UNITS/3 ML VIAL SQ SCH ×4 (08:17→22:17)
[2017-12-10 08:53] LABS: Basophils % 0.2 %; Eosinophils % 0.2 %; Hematocrit 36.5 % (37.5-50.1); Hemoglobin 12.2 g/dL (12.9-16.9); Immature Granulocytes % 0.8 % (0-4); Lymphocytes # 1.3 K/mcL (0.6-4.6); Lymphocytes % 15.3 %; Mean Corpuscular HGB Conc 33.4 g/dL (31.6-35.5); Mean Corpuscular Hemoglobin 27.3 pg (28.0-33.3); Mean Corpuscular Volume 81.7 fL (83.0-100.0); Mean Platelet Volume 9.5 fL (9.4-12.4); Monocytes # 0.7 K/mcL (0.0-1.3); Neutrophils # 6.1 K/mcL (1.6-8.9); Platelet Count 419 K/mcL (140-400); Red Blood Count 4.47 M/mcL (4.19-5.50); Red Cell Distribution Width 13.1 % (11.5-14.5); Segmented Neutrophils % 74.5 %
[2017-12-10 09:02] LABS: Calcium 8.1 mg/dL (8.6-10.3); Magnesium 1.7 mg/dL (1.6-2.6); Potassium 4.4 mEq/L (3.5-5.1)
--- NOTE | 2017-12-10 12:29 | Nephrology Progress Note ---
Date of Encounter: 12/10/17 Time of Encounter: 12:00 - Assessment and Plan (1) SAGE (acute kidney injury) Current Visit: Yes Status: Acute SCr improving at 2.75, GFR 31 which is get UOP improved at 1850cc in the past 24hrs with 2750cc documented already today No acute indication for PANTS PRESSER at this time US of kidney unremarkable Urine showed sub-nephrotic range proteinuria likely due to DM. ANCA and antiGBM , hep C pending Continue to avoid nephrotoxins if possible Ok to stop IVF and continue po fluids if tolerating given issues with nausea (2) Acute left flank pain Current Visit: Yes Status: Acute Not kidney related (3) UTI (urinary tract infection) Current Visit: Yes Status: Acute abx per primary team Qualifiers: Urinary tract infection type: acute cystitis Hematuria presence: without hematuria Qualified Code(s): N30.00 - Acute cystitis without hematuria Subjective Principal diagnosis: SAGE, flank pain Interval history: Pt seen and examined Objective - Vital Signs Vital signs: Vital Signs Temp Pulse Resp BP Pulse Ox 12/10/17 11:13 99.2 F 91 15 158/89 98 12/10/17 06:58 97.9 F 92 14 160/85 99 12/10/17 03:30 98.0 F 91 18 150/78 97 12/09/17 23:20 98.3 F 91 17 168/99 98 12/09/17 19:19 98.1 F 92 18 162/103 98 12/09/17 14:12 98.8 F 92 16 152/92 97 Intake and Output 12/09/17 12/10/17 12/10/17 23:59 07:59 15:59 Intake Total 1650 / 1650 1690 / 1690 360 / 360 Output Total 300 / 300 1750 / 1750 1000 / 1000 Balance 1350 / 1350 -60 / -60 -640 / -640 Intake: IV Fluids 1010 / 1010 1010 / 1010 0.9 % Sodium Chloride 1,000 ML 1000 / 1000 1000 / 1000 @ 100 mls/hr IVC .Q10H [facility] Rx#: [id number] Rocephin 1,000 MG In Water for 10 / inj. (sterile) 10 ML @ 300 mls/ hr IVPB Q24H [facility] Rx#:[id number] Oral 640 / 640 680 / 680 360 / 360 Output: Urine 300 / 300 1750 / 1750 1000 / 1000 Other: Meal REFUSED DINNER Breakfast Percent of Meal Consumed 10% Weight 146.4 kg Blood Glucose* 114 143 112 Patient Weight 12/10/17 23:59 Weight 146.4 kg - Lab 12/10/17 08:02 12/10/17 08:02 Most recent lab results Calcium 8.1 mg/dL (8.6-10.3) L 12/10/17 08:02 Magnesium 1.7 mg/dL (1.6-2.6) 12/10/17 08:02 Urine Creatinine 117 mg/dL 12/08/17 21:00 Urine Sodium 33.9 mEq/L 12/08/17 21:00 Urine Total Protein 326 mg/dL (1-14) H 12/08/17 21:00 Consult Discharge Plan - Plan Referrals: Truong Humphries DO [Primary Care Provider] - 12/20/17 10:40 am
--- NOTE | 2017-12-10 12:44 | Oncology Inp Progress Note ---
Date of Encounter: 12/10/17 Time of Encounter: 12:00 (1) Anemia Current Visit: Yes Status: Acute Assessment and plan: Anemia-improved to baseline. D/C home planned per patient. F/U out patient with his providers/PCP. Qualifiers: Anemia type: unspecified type Qualified Code(s): D64.9 - Anemia, unspecified Oncology: Subj Interval history: Feels improved, feels he could go home - Constitutional Vitals: Vital Signs Temp Pulse Resp BP Pulse Ox 12/10/17 11:13 99.2 F 91 15 158/89 98 12/10/17 06:58 97.9 F 92 14 160/85 99 12/10/17 03:30 98.0 F 91 18 150/78 97 12/09/17 23:20 98.3 F 91 17 168/99 98 12/09/17 19:19 98.1 F 92 18 162/103 98 12/09/17 14:12 98.8 F 92 16 152/92 97 Intake and Output 12/09/17 12/10/17 12/10/17 23:59 07:59 15:59 Intake Total 1650 / 1650 1690 / 1690 360 / 360 Output Total 300 / 300 1750 / 1750 1000 / 1000 Balance 1350 / 1350 -60 / -60 -640 / -640 Intake: IV Fluids 1010 / 1010 1010 / 1010 0.9 % Sodium Chloride 1,000 ML 1000 / 1000 1000 / 1000 @ 100 mls/hr IVC .Q10H [facility] Rx#: [id number] Rocephin 1,000 MG In Water for inj. (sterile) 10 ML @ 300 mls/ hr IVPB Q24H [facility] Rx#:[id number] Oral 640 / 640 680 / 680 360 / 360 Output: Urine 300 / 300 1750 / 1750 1000 / 1000 Other: Meal REFUSED DINNER Breakfast Percent of Meal Consumed 10% Weight 146.4 kg Blood Glucose* 114 143 112 Patient Weight 12/10/17 23:59 Weight 146.4 kg General appearance: no acute distress - Head Head exam: Present: atraumatic, normal inspection - Eye Eye exam: Present: sclera anicteric - ENT ENT exam: Present: mucous membranes moist - Respiratory Respiratory exam: Present: CTAB - Extremities Exam Extremities exam: Present: normal inspection, pedal edema Additional comments: skin lesion left lower ext - Neurological Exam Neurological exam: Present: alert, oriented X3 Oncology: Obj Data - Labs CBC & Chem 7: 12/10/17 08:02 12/10/17 08:02 Labs: Laboratory Results - last 24 hr 12/09/17 12/09/17 12/10/17 16:20 20:15 07:42 WBC RBC Hgb Hct MCV MCH MCHC RDW Plt Count MPV Immature Gran % Seg Neutrophils % Lymphocytes % Monocytes % Eosinophils % Basophils % Neutrophils # Lymphocytes # Monocytes # Eosinophils # Basophils # Sodium Potassium Chloride Carbon Dioxide BUN Creatinine Est GFR ( Amer) Est GFR (Non-Af Amer) BUN/Creatinine Ratio Glucose POC Glucose 87 114 H 143 H Calculated Osmolality Calcium Magnesium 12/10/17 12/10/17 12/10/17 08:02 08:02 11:09 WBC 8.3 RBC 4.47 Hgb 12.2 L Hct 36.5 L MCV 81.7 L MCH 27.3 L MCHC 33.4 RDW 13.1 Plt Count 419 H MPV 9.5 Immature Gran % 0.8 Seg Neutrophils % 74.5 Lymphocytes % 15.3 Monocytes % 9.0 Eosinophils % 0.2 Basophils % 0.2 Neutrophils # 6.1 Lymphocytes # 1.3 Monocytes # 0.7 Eosinophils # 0.0 Basophils # 0.0 Sodium 135 L Potassium 4.4 Chloride 105 Carbon Dioxide 26 BUN 24 H Creatinine 2.75 H Est GFR ( Amer) 31 L Est GFR (Non-Af Amer) 26 L BUN/Creatinine Ratio 9 Glucose 150 H POC Glucose 112 H Calculated Osmolality 287 Calcium 8.1 L Magnesium 1.7 - ABG Interpretation ABG results: PT/INR, D-dimer PT 12.5 Seconds (9.4-12.1) H 12/06/17 01:42 Consult Discharge Plan - Plan Referrals: Truong Humphries DO [Primary Care Provider] - 12/20/17 10:40 am
--- NOTE | 2017-12-10 16:56 | Internal Med Progress Note ---
Date of Encounter: 12/10/17 Time of Encounter: 16:48 - Assessment and plan (1) SAGE (acute kidney injury) Current Visit: Yes Status: Acute (2) Acute left flank pain Current Visit: Yes Status: Acute (3) Nausea & vomiting Current Visit: Yes Status: Acute Qualifiers: Vomiting type: unspecified Vomiting Intractability: intractable Qualified Code(s): R11.2 - Nausea with vomiting, unspecified (4) Type 2 diabetes mellitus Current Visit: Yes Status: Acute Qualifiers: Diabetes mellitus terminal gauger insulin use: with chcf use Diabetes mellitus complication status: without complication Qualified Code(s): E11.9 - Type 2 diabetes mellitus without complications; Z79.4 - detention (current) use of insulin (5) Hypertension Current Visit: Yes Status: Acute Qualifiers: Hypertension type: essential hypertension Qualified Code(s): I10 - Essential (primary) hypertension - Time Spent With Patient Total time spent is greater than 50% in coordination of care (as documented) at patient's floor/unit and/or counseling patient: 25 - 35 minutes - Subjective Interval history: .. His nausea and vomiting, nearly subsided. He has only had mild pain in the area of left flank. He showed some interest about her resuming his diabetic diet. Denies chest pain. Denies difficulty breathing. He has no coughing or wheezing. He makes good amount of urine. OBJECTIVE: .. Skin: Free of rash and discoloration. ENMT: Oral/pharyngeal mucosa is normal in appearance. Eyes: Sclera is white. There is no discharge from eyes. Respiratory: Normal breath sounds; no crackles or wheezes. CV: Heart is regular; no gallop or murmur. GI: Abdomen is soft and not tender. There is only mild tenderness in the area of left flank. It is very superficial. ASSESSMENT AND PLAN: .. Acute kidney injury. Nonoliguric. Getting better. His creatinine from today is 2.75; 4.79 yesterday. See nephrology notes. Nausea and vomiting. Intractable. Better on scheduled IV Reglan. It could be caused by his acute kidney injury. He may have developed some diabetic gastroparesis. Acute left flank pain. We suspected him to have early shingles. I cannot see any skin lesions in that area. We stopped acyclovir. We will keep him on Lyrica and Effexor XR. He may have some kind of neuropathic pain, due to his ongoing diabetes mellitus. Type 2 diabetes mellitus. His fingersticks from today are between 112 and 161. We will continue diabetic diet and when necessary Humalog. Hypertension. He was taking lisinopril at home. It is substituted with Procardia XL. His blood pressure seems to be under fair control. - Constitutional Vitals: Temp Pulse Resp BP Pulse Ox 99.2 F 91 15 158/89 98 12/10/17 11:13 12/10/17 11:13 12/10/17 11:13 12/10/17 11:13 12/10/17 11:13 General appearance: Present: mild distress, A&O X 3, answers questions appropriately Internal Medicine: Result - Labs CBC & Chem 7: 12/10/17 08:02 12/10/17 08:02 Labs: Short CBC 12/10/17 Range/Units 08:02 WBC 8.3 (4.3-11.1) K/mcL Hgb 12.2 L (12.9-16.9) g/dL Hct 36.5 L (37.5-50.1) % Plt Count 419 H (140-400) K/mcL Neutrophils # 6.1 (1.6-8.9) K/mcL BMP 12/10/17 08:02 Sodium 135 L Potassium 4.4 Chloride 105 Carbon Dioxide 26 BUN 24 H Creatinine 2.75 H Glucose 150 H Calcium 8.1 L - ABG Interpretation ABG results: PT/INR, D-dimer PT 12.5 Seconds (9.4-12.1) H 12/06/17 01:42 Consult Discharge Plan - Plan Referrals: Truong Humphries DO [Primary Care Provider] - 12/20/17 10:40 am
[2017-12-10] MEDS: Gabapentin 300 MG CAPSULE PO SCH (21:47)
[2017-12-11] MEDS: cefTRIAXone 1,000 MG in Water for inj. (sterile) 20 ML 10 ML IVPB SCH (00:14)
[2017-12-11 04:35] LABS: Basophils # 0.1 K/mcL (0.0-0.2); Basophils % 0.7 %; Eosinophils # 0.1 K/mcL (0.0-0.6); Hematocrit 34.7 % (37.5-50.1); Hemoglobin 11.5 g/dL (12.9-16.9); Immature Granulocytes % 1.4 % (0-4); Lymphocytes # 1.7 K/mcL (0.6-4.6); Lymphocytes % 18.5 %; Mean Corpuscular HGB Conc 33.1 g/dL (31.6-35.5); Mean Corpuscular Hemoglobin 27.3 pg (28.0-33.3); Mean Corpuscular Volume 82.2 fL (83.0-100.0); Monocytes # 0.8 K/mcL (0.0-1.3); Monocytes % 9.3 %; Neutrophils # 6.2 K/mcL (1.6-8.9); Platelet Count 425 K/mcL (140-400); Red Blood Count 4.22 M/mcL (4.19-5.50); Red Cell Distribution Width 13.1 % (11.5-14.5); Segmented Neutrophils % 69.1 %
[2017-12-11] MEDS: *HR* HYDROcodone/Acet 5/325 mg TABLET PO PRN (04:38)
[2017-12-11] MEDS: 0.9 % Sodium Chloride 1,000 ML IVC SCH (04:47)
[2017-12-11 04:56] LABS: Calcium 7.9 mg/dL (8.6-10.3); Magnesium 1.4 mg/dL (1.6-2.6); Potassium 4.6 mEq/L (3.5-5.1)
[2017-12-11] MEDS: *HR* Heparin 5,000 UNIT/ML VIAL SQ SCH (05:28)
[2017-12-11] MEDS: Metoclopramide 10 MG/2 ML VIAL IVP SCH ×2 (05:30→12:44)
[2017-12-11 08:28] LABS: Myeloperoxidase Ab 2 AU/mL (0-19); Serine Protease-3 Antibody 3 AU/mL (0-19)
[2017-12-11] MEDS: Ondansetron 4 MG/2 ML VIAL IVP SCH (09:30)
[2017-12-11] MEDS: Insulin LISPRO 300 UNITS/3 ML VIAL SQ SCH ×2 (09:31→12:41)
[2017-12-11] MEDS: Venlafaxine XR (24 HR) 75 MG CAP.ER.24H PO SCH (09:31)
[2017-12-11] MEDS: NIFEdipine XL (24 HR) 60 MG TAB.ER.24 PO SCH (09:35)
--- NOTE | 2017-12-11 11:03 | Nephrology Progress Note ---
Date of Encounter: 12/11/17 Time of Encounter: 11:02 - Assessment and Plan (1) SAGE (acute kidney injury) Current Visit: Yes Status: Acute Scr improved to 1.88. GFR 40. Patient may be discharged from renal standpoint with BMP in 1 week and Follow up with PCP or with [facility]. Continue to avoid nephrotoxins and renal dose all medications. Uop 4650 yesterday. (2) Acute left flank pain Current Visit: Yes Status: Acute Per primary team. (3) UTI (urinary tract infection) Current Visit: Yes Status: Acute Per primary team. Qualifiers: Urinary tract infection type: acute cystitis Hematuria presence: without hematuria Qualified Code(s): N30.00 - Acute cystitis without hematuria Subjective Principal diagnosis: SAGE, flank pain Interval history: Pt seen and examined. Objective - Vital Signs Vital signs: Vital Signs Temp Pulse Resp BP Pulse Ox 12/11/17 07:18 98.2 F 87 14 141/78 97 12/11/17 04:52 99.2 F 99 16 156/90 99 12/10/17 20:50 99.7 F H 91 16 158/95 95 12/10/17 11:13 99.2 F 91 15 158/89 98 Intake and Output 12/10/17 12/11/17 12/11/17 23:59 07:59 15:59 Intake Total 1000 / 1000 1000 / 1000 240 / 240 Output Total 1900 / 1900 0 / 0 Balance -900 / -900 1000 / 1000 240 / 240 Intake: IV Fluids 1000 / 1000 1000 / 1000 0.9 % Sodium Chloride 1,000 ML 1000 / 1000 1000 / 1000 @ 100 mls/hr IVC .Q10H [facility] Rx#: [id number] Oral 0 / 0 240 / 240 Output: Urine 1900 / 1900 0 / 0 Other: Meal Breakfast Percent of Meal Consumed 100% Blood Glucose* 145 151 - General Appearance General appearance: Present: well-developed, well-nourished, appears started age EENT: Present: ATNC, hearing intact, vision intact Neck: Present: supple Respiratory: Present: clear Cardiology: Present: no edema, normal S1, normal S2 Gastrointestinal: Present: normoactive bowel sounds, no tenderness, no guarding Integumentary: Present: no rash, warm and dry Neurologic: Present: alert and oriented x3 Psychiatric: Present: mood/affect appropriate, cooperative - Lab 12/11/17 03:57 12/11/17 03:57 Most recent lab results Calcium 7.9 mg/dL (8.6-10.3) L 12/11/17 03:57 Magnesium 1.4 mg/dL (1.6-2.6) L 12/11/17 03:57 Urine Creatinine 117 mg/dL 12/08/17 21:00 Urine Sodium 33.9 mEq/L 12/08/17 21:00 Urine Total Protein 326 mg/dL (1-14) H 12/08/17 21:00 Consult Discharge Plan - Plan Referrals: Truong Humphries, [Primary Care Provider] - 12/20/17 10:40 am
[2017-12-11 11:20] VITALS: BP 173/87
--- NOTE | 2017-12-11 12:58 | Gastroenterology Consult Note ---
Date of Encounter: 12/11/17 Time of Encounter: 11:35 - Assessment and plan (1) Hyperbilirubinemia Current Visit: No Status: Acute Assessment and plan: Hyperbilirubinemia-predominantly elevated indirect bilirubin. TB 1.7, indirect bili 1.3, AST and ALT within normal limits. 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 Will complete liver workup. No specific treatment indicated. Gilbert's syndrome typically does not cause symptoms, but the most common symptom is jaundice which resolves without intervention. (2) Anemia Current Visit: Yes Status: Acute Assessment and plan: Hgb 12 on admission and 11.5 today. Iron 23 with ferritin 210. Continue to monitor CBC and transfuse PRBC as needed. Plan for EGD tomorrow to r/o esophagitis, gastritis, duodenitis, PUD, MW tear, or AVM. Keep NPO at midnight. Qualifiers: Anemia type: unspecified type Qualified Code(s): D64.9 - Anemia, unspecified - Time Spent With Patient Total time spent is greater than 50% in coordination of care (as documented) at patient's floor/unit and/or counseling patient: GI History of Present Illness - Data of Consult Patient: new to practice Consult date: 12/11/17 Requesting Physician: Mj Coleman - Consult Narrative Reason for consult: Coffee Ground Emesis History of present illness: Mr. Reynolds is a 42 year old male with PMHx of DM and HTN who presented to the ED with 2 days of left sided flank pain which he described as sharp and burning. Pain mostly on surface of skin, suspicious for shingles. He also complains of nausea and vomiting. He denies chest pain, shortness of breath, abdominal pain, diarrhea, constipation, melena, hematochezia. In the ED he was noted to have hyperbilirubinemia-predominantly elevated indirect bilirubin, mild anemia, CT abdomen which revealed cystitis. Nausea and vomiting has improved with scheduled Reglan. We were consulted to evaluate coffee ground emesis. Patient reports several episodes of coffee ground emesis. Procedures: None NSAIDs: None Anticoagulation: None Past Med Surg Social Fam HX - Past Medical History Medical history: diabetes, hypertension Psychiatric history: no psych history - Past Surgical History Surgical History: cholecystectomy (Smokes marijuana) Additional surgical history: toe amputation. rotator cuff. right leg - Social History Smoking Status: Never smoker Smokeless Tobacco Status: No Alcohol use: none Drug use: none - Family History Mother Hx Family Cardiac Disorders: Yes ([place], CVA) Hx Family Endocrine Disorder: Yes (DM) Hx Family Musculoskeletal Disorders: Yes (Osteoporosis) Father Hx Family Endocrine Disorder: Yes (DM) Sister Hx Family Endocrine Disorder: Yes (DM) - Gastrointestinal Gastrointestinal: Present: as per HPI - Constitutional Constitutional: as per HPI - EENT Eyes: as per HPI Ears: Present: as per HPI Nose, mouth and throat: Present: as per HPI - Cardiovascular Cardiovascular ROS: Present: as per HPI - Respiratory Respiratory IM: Present: as per HPI - Genitourinary Genitourinary: Absent: change in color, Urinary frequency - Neurological ROS Neurological GI: Present: as per HPI - Hematologic/Lymphatic Hematologic/Lymphatic pediatric: Present: as per HPI - Musculoskeletal Musculoskeletal ROS GI: Present: as per HPI - Integumentary Integumentary GI: Present: as per HPI - Psychiatric ROS Psychiatric GI: Present: as per HPI - Endocrine Endocrine IM: Present: as per HPI - Constitutional Vitals: Temp Pulse Resp BP Pulse Ox 98 F 84 12 173/87 100 12/11/17 11:14 12/11/17 11:14 12/11/17 11:14 12/11/17 11:14 12/11/17 11:14 General appearance: Present: cooperative, A&O X 3, no acute distress, answers questions appropriately - Head Head exam: Present: atraumatic, normocephalic - Eye Eye exam: Present: normal appearance, sclera anicteric - ENT ENT exam: Present: mucous membranes moist - Neck Neck exam general surgery: Present: normal inspection, trachea midline - Respiratory Respiratory exam: Present: CTAB. Absent: rales, rhonchi - Cardiovascular Cardiovascular exam: Present: RRR, +S1, +S2 - GI/Abdominal GI/Abdominal exam: Present: soft, no peritoneal signs. Absent: distended, firm , guarding, tenderness - Rectal Rectal exam: Present: deferred - Extremities Exam Extremities exam: Present: warm - Neurological Exam Neurological exam: Present: no focal deficits - Psychiatric Psychiatric exam: Present: normal affect, normal mood - Skin Skin exam: Present: dry, intact, normal color, warm Results - Labs CBC & Chem 7: 12/11/17 03:57 12/11/17 03:57 Labs: Last Result Calcium 7.9 mg/dL (8.6-10.3) L 12/11/17 03:57 Iron 23 mcg/dL (65-175) L 12/07/17 13:20 % Saturation 11 % (20-55) L 12/07/17 13:20 Transferrin 148 mg/dL (203-362) L 12/07/17 13:20 Ferritin 210 ng/mL (20-250) 12/07/17 13:20 Troponin I < 0.03 ng/mL (< 0.04) 12/05/17 20:49 Vitamin B12 707 pg/mL (250-1100) 12/07/17 13:20 Folate 10.2 ng/mL (3.0-16.0) 12/07/17 13:20 Entire Visit Hgb 11.5 g/dL (12.9-16.9) L 12/11/17 03:57 Hct 34.7 % (37.5-50.1) L 12/11/17 03:57 PT 12.5 Seconds (9.4-12.1) H 12/06/17 01:42 Ferritin 210 ng/mL (20-250) 12/07/17 13:20 Total Bilirubin 1.7 mg/dL (0.3-1.0) H 12/06/17 06:47 AST 18 Units/L (13-39) 12/06/17 06:47 ALT 22 Units/L (7-52) 12/06/17 06:47 Lipase 11 Units/L (11-82) 12/06/17 06:47 Folate 10.2 ng/mL (3.0-16.0) 12/07/17 13:20 - ABG ABG results: PT/INR, D-dimer PT 12.5 Seconds (9.4-12.1) H 12/06/17 01:42 Consult Discharge Plan - Plan Referrals: Truong Humphries DO [Primary Care Provider] - 12/20/17 10:40 am
--- NOTE | 2017-12-11 13:11 | Discharge Summary ---
Orders not resulted at time of discharge: Pending orders 12/06/17 02:32 Occult Blood,Stool [BF] Stat 12/07/17 13:20 Folate Routine Hepatitis Prof.(Routine A,B,C) Routine Vitamin B12 Routine 12/09/17 05:05 GBM IgG by IFA and Mult Bead AM 0400 MPO/PR3 (ANCA) Antibodies Routine 12/12/17 04:00 BMP [Basic Metabolic Panel] AM 0400 CBC [Complete Blood Count] [HEME] AM 0400 Mg Serum [Magnesium] AM 0400 12/13/17 04:00 BMP [Basic Metabolic Panel] AM 0400 CBC [Complete Blood Count] [HEME] AM 0400 Mg Serum [Magnesium] AM 0400 Date of Encounter: 12/11/17 Time of Encounter: 13:05 - Discharge Diagnosis (1) SAGE (acute kidney injury) Priority: Primary Status: Acute (2) Acute left flank pain Priority: Primary Status: Acute (3) Nausea & vomiting Priority: Secondary Status: Acute Qualifiers: Vomiting type: unspecified Vomiting Intractability: intractable Qualified Code(s): R11.2 - Nausea with vomiting, unspecified (4) Type 2 diabetes mellitus Priority: Secondary Status: Acute Qualifiers: Diabetes mellitus exterminator helper insulin use: with chcf use Diabetes mellitus complication status: without complication Qualified Code(s): E11.9 - Type 2 diabetes mellitus without complications; Z79.4 - intermediate accountant (current) use of insulin (5) Hypertension Priority: Secondary Status: Acute Qualifiers: Hypertension type: essential hypertension Qualified Code(s): I10 - Essential (primary) hypertension Hospital course: Mr. Reynolds is a 42 year old male. We admitted this patient with left-sided flank paindeveloping in the last 2 days preceding this admission; associated with nausea and vomiting. The pain seemed to be very superficial. It was like hyperesthesia. It seems to be severe. We felt, that he was developing shingles. He was started on acyclovir. We were giving him opiate analgesics. He was getting when necessary Zofran/IV Phenergan. At some point I added Effexor XR to his Neurontin. I did not see any skin rash on that day (never showed up). I felt that he could have some diabetic neuropathy. Shortly after the patient developed acute kidney injury. Will stop acyclovir. We also stopped IV Toradol (used for the treatment of his pain), Lasix and potassium chloride. Nephrology was consulted. His acute kidney injury was nonoliguric. Eventually , his creatinine started decreasing. From the highest of 4.94 on December 08 it dropped to 1.28 on the day of discharge. We found him having mild elevation of bilirubin, mostly indirect. GI and hematology were consulted. 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 I saw him in the morning before him leaving the hospital. He felt good. Not having significant pain. Not complaining of nausea and vomiting. See discharge orders. Discharge discussed with: patient, nurse, case management - Time Spent with Patient Total time spent providing and/or coordinating discharge services: Greater than 30 minutes (40 minutes) - Discharge Medications Home Medications: Furosemide [Lasix] 40 mg PO BID #14 tablet 12/03/17 [Rx] NIFEdipine XL (24 HR) [Procardia XL] 60 mg PO BID #60 tab.er.24 12/03/17 [Rx] Potassium Chloride 10 meq PO BID #14 tab.er.prt 12/03/17 [Rx] Insulin ASPART [Novolog Flexpen] 6 - 14 units SQ TIDWM 12/06/17 [History] Losartan Potassium [Cozaar] 50 mg PO DAILY 12/06/17 [History] hydrALAZINE [HydrALAZINE] 25 mg PO Q8HR 12/06/17 [History] Insulin Glargine,Hum.rec.anlog [Basaglar Kwikpen U-100] 20 unit SQ DAILY #0 02/20 [Rx] Allergies/Adverse Reactions: 3 Allergy/AdvReac Type Severity Reaction Status Date / Time No Known Allergies Allergy Verified 12/05/17 19:58 Date of admission: 12/06/17 00:41 Primary care physician: Truong Humphries, Consults: 12/06/17 00:53 Consult to Wound Care [CONS] Routine Reason for Consult: Left heel wound Call Completed: No 12/06/17 03:19 Consult to Nephrology [CONS] Routine Consulting Provider: [facility]/KELLIE/MIREILLE/JOHANA Reason for Consult: ARF Call Completed: Yes Consult to Oncology [CONS] Routine Consulting Provider: [facility] Reason for Consult: Suspect hemolytic anemia Call Completed: Yes 12/08/17 21:01 Consult to Gastroenterology [CONS] Routine Consulting Provider: Gastroenterology Pia Reason for Consult: Patient vomiting coffeeground emesis. Admitted for SAGE, UTI. Had GFR of 50 on 12/06 and now 13 following contrast studies. Hgb 10.8, up from 10.6 on 12/08. Call Completed: No Discharging clinician: Mj Coleman Anticipated date of discharge: 12/11/17 - Constitutional Vitals: Temp Pulse Resp BP Pulse Ox 98 F 84 12 173/87 100 12/11/17 11:14 12/11/17 11:14 12/11/17 11:14 12/11/17 11:14 12/11/17 11:14 General appearance: Present: mild distress, A&O X 3, answers questions appropriately - Respiratory Respiratory exam: Present: CTAB. Absent: accessory muscle use, rales, rhonchi, wheezes - Cardiovascular Cardiovascular exam: Present: RRR, +S1, +S2. Absent: diastolic murmur, gallop, rubs, systolic murmur - GI/Abdominal GI/Abdominal exam: Present: normal bowel sounds, soft, no peritoneal signs. Absent: distended, tenderness - Patient Status Disposition: Home, Self-Care Condition: Fair - Discharge Instructions Instructions: Urinary Tract Infection in Men (DC) Follow Up With: Truong Humphries DO [Primary Care Provider] - 12/20/17 10:40 am - Diet and Activity Activity: resume usual activities as tolerated Diet: diabetic diet (1800 pawel ADA) - VTE Deep Vein Thrombosis/Pulmonary Embolism Present on Admission: No
[2017-12-11] MEDS: Leptospermum Honey Gel 44 ML TUBE TP SCH (15:18)
[2017-12-11 17:16] LABS: Hepatitis C Virus Antibody Nonreactive (Nonreactive)
[2017-12-12 08:15] LABS: GBM IgG Multiplex Bead Assay 2 AU/mL (0-19); Glomerular Basement Memb IgG NEGATIVE (Negative)
[2017-12-13 09:53] LABS: AFP Tumor Marker Non-Pregnant 2 ng/mL (0-9)
[2017-12-14 08:22] LABS: F-Actin (sm muscle) Ab IgG 9 Units (0-19)
== END 2017-12-11 15:40 | disposition home or self-care (01) | DRG 469 ==
LOC: 3ANU 19:52 → EMEROO 19:52 → 3ANU 12-06 00:21 → SUATTDRO 12-06 00:41
PROVIDERS: ADMIT Internal Medicine; ATTEND Internal Medicine

== ENCOUNTER 2018-09-04 08:35 | Observation (INO) ==
[2018-09-04] MEDS ORDERED: Ondansetron 4 MG/2 ML VIAL IVP ONE (08:49)
--- NOTE | 2018-09-04 08:49 | Emergency Department Note ---
Disposition Clinical Impression: Diabetes mellitus, Blunt head injury, Peripheral edema, Hypoglycemia, Hypertension, Acute kidney injury, Anemia, Elevated troponin Disposition: Admitted As Inpatient Referrals: Herminio Hawley DO [Primary Care Provider] - Forms: ED Satisfaction Letter General Adult HPI - General Chief complaint: ED Nausea/Vomiting/Diarrhea Stated complaint: Low blood sugar Time Seen by Provider: 09/04/18 08:41 Source: patient, EMS - History of Present Illness HPI Narrative: 42-year-old male with a history of diabetes mellitus reports emergency department complaining of low blood sugar. The patient reports he felt weak grabbed onto the oven door fell backwards and hit his head on the table. He denies rodney loss of consciousness. No bleeding or seizure-like activity no history of slurred speech or unilateral arm or leg weakness or numbness. No back pain reported. The patient denies any chest pain shortness of breath or abdominal pain, has a history of CHF and does report his legs are swollen. The patient denies any extremity injury. There is no history of fever. The patient's glucose was about 50 at the home. EMS arrived, checked his glucose, gave him some oral replacement and it came up to 66, and subsequently brought him to the ED. The patient does not take insulin, just oral anti-hyperglycemics. Pain Scale: 5 - Related Data Home Medications Medication Instructions Recorded Confirmed RX: Albuterol Sulfate [Ventolin 2 puff IH QID 06/28/18 06/28/18 Hfa] RX: Atorvastatin [Lipitor] 40 mg PO HS 06/28/18 06/28/18 RX: GlipiZIDE [Glipizide Xl] 5 mg PO DAILY 06/28/18 06/28/18 RX: Isosorbide DInitrate 40 mg PO TID 06/28/18 06/28/18 [Isosorbide Dinitrate] Previous Rx's Medication Instructions Recorded RX: Furosemide [Lasix] 40 mg PO BIDDIURETIC tablet 07/24/18 RX: Labetalol [Trandate] 400 mg PO TID tablet 07/24/18 RX: Losartan [Cozaar] 50 mg PO DAILY tablet 07/24/18 RX: Sodium Bicarbonate 650 mg PO TID tablet 07/24/18 RX: cloNIDine HCl [CloNIDine HCl] 0.3 mg PO Q8HR tablet 07/24/18 RX: hydrALAZINE [HydrALAZINE] 50 mg PO Q8HR tablet 07/24/18 Allergies Allergy/AdvReac Type Severity Reaction Status Date / Time amlodipine Allergy Swelling Verified 06/28/18 21:58 of Lip/Tongue/Throat iopamidol Allergy Hives Verified 06/28/18 21:58 broccoli Allergy Swelling Uncoded 07/23/18 13:03 of Lip/Tongue/Throat All systems ED: reviewed and negative except as stated. Past Medical History - Past Medical History Medical history: Reports: CHF, diabetes, hypertension Surgical history: Reports: cholecystectomy Psychiatric history: Reports: no psych history - Social History Smoking Status: Never smoker Smokeless Tobacco Status: No Alcohol use: Reports: none Drug use: Reports: none Physical Exam - General Limitations: no limitations General appearance: alert, in no apparent distress - Head Head exam: other (Hematoma occipital area no depressed skull fracture apprecia sharon.) - Eye Eye exam: Present: normal appearance, PERRL, EOMI - ENT ENT exam: normal exam, normal oropharynx, mucous membranes moist, normal external ear exam - Neck Neck exam: Present: normal inspection, full ROM, trachea midline. Absent: tenderness - Chest Chest inspection: Present: normal inspection, symmetric chest wall rise. Absent: tenderness - Respiratory Respiratory exam: Present: normal lung sounds bilaterally. Absent: respiratory distress - Cardiovascular Cardiovascular exam: Present: regular rate, normal rhythm, normal heart sounds - Abdominal Exam Abdominal exam: Present: soft, Non-Tender, normal bowel sounds. Absent: tenderness, distention, guarding, rebound, rigidity - Extremities Exam Extremities exam: Present: full ROM, normal capillary refill, pedal edema, other (Marked symmetric bilateral lower extremity edema. Good range of motion in all the major joints. No acute trauma appreciated.). Absent: joint swelling, calf tenderness - Expanded Lower Extremity Exam Neurovascular/Tendon exam: Absent: motor deficit, sensory deficit, tendon deficit, extremity cold to touch, pallor - Back Exam Back exam: Present: normal inspection, full ROM. Absent: tenderness, CVA tenderness (R), CVA tenderness (L), vertebral tenderness - Neurological Exam Neurological exam: Present: alert, oriented X3, CN II-XII intact. Absent: motor sensory deficit - Psychiatric Psychiatric exam: Present: normal affect, normal mood - Skin Skin exam: Present: warm, dry, intact, normal color Course Vital Signs Temperature 97.6 F 09/04/18 08:43 Pulse Rate 70 09/04/18 08:43 Respiratory Rate 18 09/04/18 08:43 Blood Pressure 192/110 09/04/18 08:43 O2 Sat by Pulse Oximetry 100 09/04/18 08:43 Temperature 97.6 F 09/04/18 08:43 Pulse Rate 81 09/04/18 10:30 Respiratory Rate 17 09/04/18 10:30 Blood Pressure 188/105 09/04/18 10:30 O2 Sat by Pulse Oximetry 100 09/04/18 10:30 Oxygen Delivery Oxygen Delivery Room Air Medical Decision Making - MDM Narrative Medical decision making narrative: The patient reported emergency department secondary to a hypoglycemic event, the patient only takes oral anti-hyperglycemics. He fell back striking his head, CT head cervical spine negative. EKG shows a normal sinus rhythm without acute ST elevations or the patient's troponin is significantly elevated. Aspirin was ordered. The patient was given oral glucose and orange juice and his blood sugar seems to have stabilized. Chest x-ray negative. The patient's renal function shows an elevated BUN/creatinine suggestive of a chaotic. He appears to be stable, based on his age, hypoglycemic event, known diabetes, elevated troponin, fall with head injury, and apparent elevated BUN/possible SAGE, and multiple comorbidities, I thought it would be appropriate to admit the patient to the hospital. The patient does not describe chest pain, aspirin was ordered. The patient is agreeableto admission, I discussed the case with the hospitalist on-call who has accepted the patient to their care. - Lab Data Lab results reviewed: Yes I reviewed the patient's lab results. Result diagrams: 09/04/18 09:15 09/04/18 09:15 Lab Results 09/04/18 09/04/18 09/04/18 Range/Units 09:15 09:15 09:15 WBC 9.4 (4.3-11.1) K/mcL RBC 4.35 (4.19-5.50) M/mcL Hgb 10.9 L (12.9-16.9) g/dL Hct 34.6 L (37.5-50.1) % MCV 79.5 L (83.0-100.0) fL MCH 25.1 L (28.0-33.3) pg MCHC 31.5 L (31.6-35.5) g/dL RDW 17.7 H (11.5-14.5) % Plt Count 358 (140-400) K/mcL MPV 9.7 (9.4-12.4) fL Immature Gran % 0.4 (0-4) % Seg Neutrophils % 74.0 % Lymphocytes % 12.0 % Monocytes % 9.8 % Eosinophils % 3.4 % Basophils % 0.4 % Neutrophils # 6.9 (1.6-8.9) K/mcL Lymphocytes # 1.1 (0.6-4.6) K/mcL Monocytes # 0.9 (0.0-1.3) K/mcL Eosinophils # 0.3 (0.0-0.6) K/mcL Basophils # 0.0 (0.0-0.2) K/mcL PT (9.4-12.1) Seconds INR APTT (26.0-36.0) Seconds Sodium 137 (136-145) mEq/L Potassium 3.7 (3.5-5.1) mEq/L Chloride 109 H (98-107) mEq/L Carbon Dioxide 19 L (23-29) mEq/L BUN 48 H (6-20) mg/dL Creatinine 2.26 H (0.70-1.30) mg/dL Est GFR ( Amer) 39 L (> 60) Est GFR (Non-Af Amer) 32 L (> 60) BUN/Creatinine Ratio 21 (6-26) Glucose 102 (70-105) mg/dL Calculated Osmolality 297 (280-300) Lactic Acid (0.5-2.2) mmol/L Calcium 7.5 L (8.6-10.3) mg/dL Total Bilirubin 0.5 (0.3-1.0) mg/dL AST 29 (13-39) Units/L ALT 18 (7-52) Units/L Alkaline Phosphatase 76 (34-104) Units/L Troponin I (< 0.04) ng/mL B-Natriuretic Peptide 415 H (Less than 100) pg/mL Serum Total Protein 5.4 L (6.4-8.9) g/dL Albumin 2.7 L (3.5-5.7) g/dL Globulin 2.7 (2.4-3.5) g/dL Albumin/Globulin Ratio 1.0 L (1.1-2.2) Lipase 43 (11-82) Units/L 09/04/18 09/04/18 09/04/18 Range/Units 09:15 09:15 09:30 WBC (4.3-11.1) K/mcL RBC (4.19-5.50) M/mcL Hgb (12.9-16.9) g/dL Hct (37.5-50.1) % MCV (83.0-100.0) fL MCH (28.0-33.3) pg MCHC (31.6-35.5) g/dL RDW (11.5-14.5) % Plt Count (140-400) K/mcL MPV (9.4-12.4) fL Immature Gran % (0-4) % Seg Neutrophils % % Lymphocytes % % Monocytes % % Eosinophils % % Basophils % % Neutrophils # (1.6-8.9) K/mcL Lymphocytes # (0.6-4.6) K/mcL Monocytes # (0.0-1.3) K/mcL Eosinophils # (0.0-0.6) K/mcL Basophils # (0.0-0.2) K/mcL PT 10.4 (9.4-12.1) Seconds INR 0.9 APTT 34.8 (26.0-36.0) Seconds Sodium (136-145) mEq/L Potassium (3.5-5.1) mEq/L Chloride (98-107) mEq/L Carbon Dioxide (23-29) mEq/L BUN (6-20) mg/dL Creatinine (0.70-1.30) mg/dL Est GFR ( Amer) (> 60) Est GFR (Non-Af Amer) (> 60) BUN/Creatinine Ratio (6-26) Glucose (70-105) mg/dL Calculated Osmolality (280-300) Lactic Acid 1.8 (0.5-2.2) mmol/L Calcium (8.6-10.3) mg/dL Total Bilirubin (0.3-1.0) mg/dL AST (13-39) Units/L ALT (7-52) Units/L Alkaline Phosphatase (34-104) Units/L Troponin I 0.14 H* (< 0.04) ng/mL B-Natriuretic Peptide (Less than 100) pg/mL Serum Total Protein (6.4-8.9) g/dL Albumin (3.5-5.7) g/dL Globulin (2.4-3.5) g/dL Albumin/Globulin Ratio (1.1-2.2) Lipase (11-82) Units/L - Radiology Data Radiology results reviewed: Yes I reviewed the patient's radiology results.
[2018-09-04 09:49] LABS: Basophils % 0.4 %; Eosinophils # 0.3 K/mcL (0.0-0.6); Eosinophils % 3.4 %; Hematocrit 34.6 % (37.5-50.1); Hemoglobin 10.9 g/dL (12.9-16.9); Immature Granulocytes % 0.4 % (0-4); Lymphocytes # 1.1 K/mcL (0.6-4.6); Mean Corpuscular HGB Conc 31.5 g/dL (31.6-35.5); Mean Corpuscular Hemoglobin 25.1 pg (28.0-33.3); Mean Corpuscular Volume 79.5 fL (83.0-100.0); Mean Platelet Volume 9.7 fL (9.4-12.4); Monocytes # 0.9 K/mcL (0.0-1.3); Monocytes % 9.8 %; Neutrophils # 6.9 K/mcL (1.6-8.9); Platelet Count 358 K/mcL (140-400); Red Blood Count 4.35 M/mcL (4.19-5.50); Red Cell Distribution Width 17.7 % (11.5-14.5)
[2018-09-04 10:11] LABS: INR 0.9; Prothrombin Time 10.4 Seconds (9.4-12.1)
[2018-09-04 10:13] LABS: Activated Partial Thrombo Time 34.8 Seconds (26.0-36.0)
[2018-09-04 10:16] LABS: Albumin 2.7 g/dL (3.5-5.7); Bilirubin,Total 0.5 mg/dL (0.3-1.0); Calcium 7.5 mg/dL (8.6-10.3); Globulin 2.7 g/dL (2.4-3.5); Potassium 3.7 mEq/L (3.5-5.1); Total Protein 5.4 g/dL (6.4-8.9)
[2018-09-04] MEDS ORDERED: Aspirin 325 MG TABLET PO ONE (10:25)
--- NOTE | 2018-09-04 11:15 | Internal Med History&Physical ---
Date of Encounter: 09/04/18 Time of Encounter: 11:14 Internal Medicine - H&P: HPI History of present illness: 42-year-old male with a history of diabetes mellitus reports emergency department complaining of blood glucose of 50 at the home. The patient also reporting feeling dizzy and felt that he is going to fall however he hold on the oven door and fell backwards and hit his head on the table. He denies loss of consciousness, palpitation, slurred speech weakness numbness tingling lost c ontrol of urine or stool . Evaluated by EMS and his glucose was around 66 he was brought to the ER for further evaluation and management. Past Med Surg Social Fam HX - Past Medical History Medical history: CHF, diabetes, hypertension Psychiatric history: no psych history - Past Surgical History Surgical History: cholecystectomy Additional surgical history: toe amputation. rotator cuff. right leg - Social History Smoking Status: Never smoker Smokeless Tobacco Status: No Alcohol use: none Drug use: none - Family History Mother Hx Family Cardiac Disorders: Yes (LA, CVA) Hx Family Endocrine Disorder: Yes (DM) Father Hx Family Cardiac Disorders: Yes Hx Family Endocrine Disorder: Yes (DM) Sister Hx Family Endocrine Disorder: Yes (DM) Internal Medicine - H&P: Meds Albuterol Sulfate [Ventolin Hfa] 2 puff IH QID 06/28/18 [History] Atorvastatin [Lipitor] 40 mg PO HS 06/28/18 [History] GlipiZIDE [Glipizide Xl] 5 mg PO DAILY 06/28/18 [History] Isosorbide DInitrate [Isosorbide Dinitrate] 40 mg PO TID 06/28/18 [History] Furosemide [Lasix] 40 mg PO BIDDIURETIC tablet 07/24/18 [Rx] Labetalol [Trandate] 400 mg PO TID tablet 07/24/18 [Rx] Losartan [Cozaar] 50 mg PO DAILY tablet 07/24/18 [Rx] Sodium Bicarbonate 650 mg PO TID tablet 07/24/18 [Rx] cloNIDine HCl [CloNIDine HCl] 0.3 mg PO Q8HR tablet 07/24/18 [Rx] hydrALAZINE [HydrALAZINE] 50 mg PO Q8HR tablet 07/24/18 [Rx] Allergy/AdvReac Type Severity Reaction Status Date / Time amlodipine Allergy Swelling Verified 06/28/18 21:58 of Lip/Tongue/Throat iopamidol Allergy Hives Verified 06/28/18 21:58 broccoli Allergy Swelling Uncoded 07/23/18 13:03 of Lip/Tongue/Throat All Systems PM: A 10-system review of systems was performed and is negative for pertinent findin gs except as documented above in the HPI. - Constitutional Constitutional: no chills, no fever(s), no night sweats - EENT Eyes: no change in vision, no discharge, no pain, no photophobia Ears: no ear discharge, no ear pain, no tinnitus Nose, mouth and throat: no dysphagia, no nasal discharge, no neck pain, no sore throat - Cardiovascular Cardiovascular ROS IM: no chest pain, no diaphoresis, no dyspnea, no lightheadedness, no palpitations, no syncope - Respiratory Respiratory: no cough, no dyspnea, no wheezing, no excessive phlegm production - Gastrointestinal Gastrointestinal: no abdominal pain, no diarrhea, no hematemesis, no hematochezia, no melena, no nausea, no vomiting - Neurological Neurological ROS: no confusion, no convulsions, no focal weakness, no numbness, no tingling, no tremor(s) - Constitutional Vitals: Temp Pulse Resp BP Pulse Ox 97.6 F 81 17 188/105 100 09/04/18 08:43 09/04/18 10:30 09/04/18 10:30 09/04/18 10:30 09/04/18 10:30 General appearance: Present: A&O X 3 - Head Head exam: Present: atraumatic, normocephalic - Neck Neck exam general surgery: Present: supple, trachea midline. Absent: lymphadenopathy - Respiratory Respiratory exam: Present: CTAB. Absent: accessory muscle use, rales, rhonchi, wheezes - Cardiovascular Cardiovascular exam: Present: RRR, +S1, +S2. Absent: diastolic murmur, gallop, rubs, systolic murmur - GI/Abdominal GI/Abdominal exam: Present: normal bowel sounds, soft, no peritoneal signs. Absent: distended, tenderness Internal Med - H&P Results - Labs CBC & Chem 7: 09/04/18 09:15 09/04/18 09:15 Labs: Short CBC 09/04/18 Range/Units 09:15 WBC 9.4 (4.3-11.1) K/mcL Hgb 10.9 L (12.9-16.9) g/dL Hct 34.6 L (37.5-50.1) % Plt Count 358 (140-400) K/mcL Neutrophils # 6.9 (1.6-8.9) K/mcL BMP 09/04/18 09:15 Sodium 137 Potassium 3.7 Chloride 109 H Carbon Dioxide 19 L BUN 48 H Creatinine 2.26 H Glucose 102 Calcium 7.5 L Cardiac Enzymes 09/04/18 Range/Units 09:15 Troponin I 0.14 H* (< 0.04) ng/mL Liver Function 09/04/18 Range/Units 09:15 Total Bilirubin 0.5 (0.3-1.0) mg/dL AST 29 (13-39) Units/L ALT 18 (7-52) Units/L Alkaline Phosphatase 76 (34-104) Units/L Albumin 2.7 L (3.5-5.7) g/dL - Impressions ITS Impressions Chest X-Ray 09/04/18 08:51 IMPRESSION: No evidence for acute cardiopulmonary process. D/ / Iker Hubbard MD / Iker Hubbard MD Interpreting Provider: Iker Hubbard MD Head CT 09/04/18 08:57 IMPRESSION: Stable negative CT brain with no acute intracranial abnormality. D/ / Ryan Lopez MD / Ryan Lopez MD Interpreting Provider: Ryan Lopez MD Cervical Spine CT 09/04/18 08:58 IMPRESSION: No acute abnormality of the cervical spine. D/ / Ryan Lopez MD / Ryan Lopez MD Interpreting Provider: Ryan Lopez MD - Assessment and Plan (1) Hypoglycemia Current Visit: Yes Status: Acute (2) Diabetes mellitus Current Visit: Yes Status: Chronic Qualifiers: (3) Hypertension Current Visit: Yes Status: Chronic Qualifiers: (4) DVT prophylaxis Current Visit: No Status: Acute (5) Chronic kidney disease Current Visit: No Status: Acute Qualifiers: Chronic kidney disease stage: stage 2 (mild) Qualified Code(s): N18.2 - Chronic kidney disease, stage 2 (mild) - Time Spent With Patient Total time spent is greater than 50% in coordination of care (as documented) at patient's floor/unit and/or counseling patient:
[2018-09-04 11:29] LABS: Bilirubin,Urine Negative (Negative); Blood,Urine Moderate (Negative); Clarity,Urine Clear (Clear); Color,Urine Yellow (Yellow); Glucose,Urine (UA) 250 mg/dL (Normal); Ketones,Urine Negative (Negative); Leukocyte Esterase,Urine Negative (Negative); Nitrite,Urine Negative (Negative); Protein,Urine >=300 mg/dL (Neg-Trace); Specific Gravity,Urine 1.021 (1.010-1.025); Urobilinogen,Urine Normal (Normal)
[2018-09-04 11:32] LABS: Bacteria,Urine None Seen per hpf (None-Few); Hyaline Casts,Urine None Seen per lpf (None-Few); Squamous Epithelial Cell,Urine Many per lpf (None-Few)
[2018-09-04] MEDS ORDERED: Naloxone 0.4 MG/ML INJ IVP PRN (13:46)
[2018-09-04] MEDS ORDERED: Acetaminophen 325 MG TABLET PO PRN (13:46)
[2018-09-04 16:01] LABS: Prothrombin Time 11.4 Seconds (9.4-12.1)
[2018-09-04 16:04] LABS: Activated Partial Thrombo Time 33.9 Seconds (26.0-36.0)
[2018-09-04] MEDS: cloNIDine HCl 0.1 MG TABLET PO SCH ×2 (17:51→21:46)
[2018-09-04] MEDS ORDERED: D5% in Water 1,000 ML IVC PRN (18:48)
[2018-09-04] MEDS ORDERED: Dextrose Gel 15 GM/37.5 ML TUBE PO PRN ×2 (18:48)
[2018-09-04] MEDS ORDERED: *HR* Dextrose 50 % in Water (Syg) 50 ML SYRINGE IVP PRN (18:48)
[2018-09-04 19:01] LABS: Estimated Average Glucose 174 mg/dl; Hemoglobin A1C 7.7 %
[2018-09-04] MEDS ORDERED: Saline Nasal Spray 44 ML BOTTLE NS PRN (19:48)
[2018-09-04] MEDS: Menthol 9.1 MG LOZENGE PO PRN (22:08)
[2018-09-05] MEDS: Insulin LISPRO 300 UNITS/3 ML VIAL SQ SCH ×4 (00:16→16:55)
--- NOTE | 2018-09-05 06:36 | Electrocardiograph Report ---
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
[2018-09-05 06:38] LABS: Basophils % 0.6 %; Eosinophils # 0.2 K/mcL (0.0-0.6); Eosinophils % 2.9 %; Hematocrit 31.1 % (37.5-50.1); Immature Granulocytes % 0.1 % (0-4); Lymphocytes # 1.1 K/mcL (0.6-4.6); Lymphocytes % 15.7 %; Mean Corpuscular HGB Conc 32.2 g/dL (31.6-35.5); Mean Corpuscular Hemoglobin 25.8 pg (28.0-33.3); Mean Corpuscular Volume 80.2 fL (83.0-100.0); Mean Platelet Volume 9.6 fL (9.4-12.4); Monocytes # 0.9 K/mcL (0.0-1.3); Monocytes % 12.6 %; Neutrophils # 4.9 K/mcL (1.6-8.9); Platelet Count 317 K/mcL (140-400); Red Blood Count 3.88 M/mcL (4.19-5.50); Red Cell Distribution Width 17.9 % (11.5-14.5); Segmented Neutrophils % 68.1 %
[2018-09-05 06:56] LABS: Albumin 2.2 g/dL (3.5-5.7); Bilirubin,Total 0.4 mg/dL (0.3-1.0); Calcium 7.3 mg/dL (8.6-10.3); Globulin 2.3 g/dL (2.4-3.5); Magnesium 1.6 mg/dL (1.6-2.6); Phosphorous 4.2 mg/dL (2.7-4.5); Potassium 3.9 mEq/L (3.5-5.1); Total Protein 4.5 g/dL (6.4-8.9)
[2018-09-05] MEDS: Menthol 9.1 MG LOZENGE PO PRN ×4 (07:30→14:20)
[2018-09-05] MEDS: cloNIDine HCl 0.1 MG TABLET PO SCH ×2 (07:55→14:47)
[2018-09-05] MEDS ORDERED: Loratadine 10 MG TABLET PO ONE (13:27)
[2018-09-05] MEDS ORDERED: GuaiFENesin/Dextromethorphan TABLET PO SCH ×2 (13:28→21:00)
[2018-09-05 14:43] VITALS: BP 165/87
[2018-09-05] MEDS ORDERED: hydrALAZINE 25 MG TABLET PO SCH ×3 (15:00→21:00)
--- NOTE | 2018-09-05 15:05 | Discharge Summary ---
Orders not resulted at time of discharge: Pending orders 09/04/18 09:00 Culture,Blood [BC] Stat Date of Encounter: 09/05/18 Time of Encounter: 11:00 - Discharge Diagnosis (1) Diabetes mellitus Priority: Secondary Status: Chronic Qualifiers: Chronic kidney disease stage: unspecified stage Qualified Code(s): E08.22 - Diabetes mellitus due to underlying condition with diabetic chronic kidney disease; Z79.4 - assisted (current) use of insulin (2) Hypertension Priority: Secondary Status: Chronic Qualifiers: Hypertension type: unspecified Qualified Code(s): I10 - Essential (primary) hypertension (3) Chronic kidney disease Priority: Secondary Status: Acute Qualifiers: Chronic kidney disease stage: stage 2 (mild) Qualified Code(s): N18.2 - Chronic kidney disease, stage 2 (mild) (4) Hypoglycemia Priority: Secondary Status: Acute Hospital course: This is a 42-year-old male with past medical history significant for diabetes who presented to the ER due to hypoglycemia with a blood glucose level of 50 at home. During patients hospital stay his blood sugars remain within normal limits after sulfonylurea held. Patient will be discharged on decide 2.5 mg twice daily. Patient will follow-up with family practice provider for further management. - Time Spent with Patient Total time spent providing and/or coordinating discharge services: Time spent: Less than 30 minutes - Discharge Medications Prescriptions: New glipiZIDE [Glucotrol] 2.5 mg PO BIDWM #60 tablet Continue Albuterol Sulfate [Ventolin Hfa] 2 puff IH QID Atorvastatin [Lipitor] 40 mg PO QPM Bumetanide [Bumex] 1 mg PO BID Carvedilol [Coreg] 25 mg PO BID cloNIDine HCl [CloNIDine HCl] 0.1 mg PO BID Furosemide [Lasix] 40 mg PO BID Glucagon,Human Recombinant [Glucagon Emergency Kit] 1 mg IM PRN PRN PRN Reason: BLOOD SUGAR <60 hydrALAZINE [HydrALAZINE] 50 mg PO TID Labetalol HCl 400 mg PO Q12H Losartan Potassium 100 mg PO DAILY Melatonin 5 mg PO HS PRN PRN Reason: Sleep Metoclopramide [Reglan] 10 mg PO ACHS Pantoprazole Sodium [Protonix] 40 mg PO BID Spironolactone 100 mg PO DAILY Trazodone HCl 50 mg PO HS PRN PRN Reason: Insomnia Discontinued glipiZIDE [Glucotrol] 5 mg PO BID Home Medications: Albuterol Sulfate [Ventolin Hfa] 2 puff IH QID 06/28/18 [History] Atorvastatin [Lipitor] 40 mg PO QPM 06/28/18 [History] Bumetanide [Bumex] 1 mg PO BID 09/05/18 [History] Carvedilol [Coreg] 25 mg PO BID 09/05/18 [History] Furosemide [Lasix] 40 mg PO BID 09/05/18 [History] Glucagon,Human Recombinant [Glucagon Emergency Kit] 1 mg IM PRN PRN 09/05/18 [History] Labetalol HCl 400 mg PO Q12H 09/05/18 [History] Losartan Potassium 100 mg PO DAILY 09/05/18 [History] Melatonin 5 mg PO HS PRN 09/05/18 [History] Metoclopramide [Reglan] 10 mg PO ACHS 09/05/18 [History] Pantoprazole Sodium [Protonix] 40 mg PO BID 09/05/18 [History] Spironolactone 100 mg PO DAILY 09/05/18 [History] Trazodone HCl 50 mg PO HS PRN 09/05/18 [History] cloNIDine HCl [CloNIDine HCl] 0.1 mg PO BID 09/05/18 [History] glipiZIDE [Glucotrol] 2.5 mg PO BIDWM #60 tablet 09/05/18 [Rx] hydrALAZINE [HydrALAZINE] 50 mg PO TID 09/05/18 [History] Allergies/Adverse Reactions: Allergy/AdvReac Type Severity Reaction Status Date / Time amlodipine Allergy Swelling Verified 06/28/18 21:58 of Lip/Tongue/Throat iopamidol Allergy Hives Verified 06/28/18 21:58 broccoli Allergy Swelling Uncoded 07/23/18 13:03 of Lip/Tongue/Throat Date of admission: 09/04/18 11:38 Primary care physician: Herminio Hawley DO Consults: 09/04/18 15:16 Consult to Drupal Web Developer [CONS] Routine Reason for SW Consult: before admission to [facility] home health therapy - Constitutional Vitals: Temp Pulse Resp BP Pulse Ox 98.0 F 80 17 165/87 98 09/05/18 14:42 09/05/18 14:42 09/05/18 14:42 09/05/18 14:42 09/05/18 14:42 General appearance: Present: A&O X 3 Exam: Gen.: Nonacute distress, alert and oriented 3 Skin: Normal colorrises - Patient Status Disposition: Home, Self-Care - Discharge Instructions Instructions: Glipizide (By mouth) Follow Up With: Herminio Hawley DO [Primary Care Provider] - 09/11/18 3:20 pm (with Dr. Brady)
--- NOTE | 2018-09-05 17:09 | Physician Discharge Referral ---
Home Health/Hosp Referral Info Transfer to: Home Health - Diagnosis (1) Diabetes mellitus Status: Chronic (2) Hypertension Status: Chronic (3) DVT prophylaxis Status: Acute (4) Chronic kidney disease Status: Acute (5) Hypoglycemia Status: Acute - Respiratory Orders Smoking Cessation: Smoking cessation has been advised. For more information, call the [place] Tobacco Quit Line at 3-859-EJVD-NOW. - Services Needed Following services are medically necessary services: Nursing, Home Health Aide, Physical Therapy, Occupational Therapy - Transfer Medications Prescriptions: glipiZIDE [Glucotrol] 2.5 mg PO BIDWM #60 tablet Home Medications: Albuterol Sulfate [Ventolin Hfa] 2 puff IH QID 06/28/18 [History] Atorvastatin [Lipitor] 40 mg PO QPM 06/28/18 [History] Bumetanide [Bumex] 1 mg PO BID 09/05/18 [History] Carvedilol [Coreg] 25 mg PO BID 09/05/18 [History] Furosemide [Lasix] 40 mg PO BID 09/05/18 [History] Glucagon,Human Recombinant [Glucagon Emergency Kit] 1 mg IM PRN PRN 09/05/18 [History] Labetalol HCl 400 mg PO Q12H 09/05/18 [History] Losartan Potassium 100 mg PO DAILY 09/05/18 [History] Melatonin 5 mg PO HS PRN 09/05/18 [History] Metoclopramide [Reglan] 10 mg PO ACHS 09/05/18 [History] Pantoprazole Sodium [Protonix] 40 mg PO BID 09/05/18 [History] Spironolactone 100 mg PO DAILY 09/05/18 [History] Trazodone HCl 50 mg PO HS PRN 09/05/18 [History] cloNIDine HCl [CloNIDine HCl] 0.1 mg PO BID 09/05/18 [History] glipiZIDE [Glucotrol] 2.5 mg PO BIDWM #60 tablet 09/05/18 [Rx] hydrALAZINE [HydrALAZINE] 50 mg PO TID 09/05/18 [History] Allergies/Adverse Reactions: Allergy/AdvReac Type Severity Reaction Status Date / Time amlodipine Allergy Swelling Verified 06/28/18 21:58 of Lip/Tongue/Throat iopamidol Allergy Hives Verified 06/28/18 21:58 broccoli Allergy Swelling Uncoded 07/23/18 13:03 of Lip/Tongue/Throat Certification: Further, I certify that my clinical findings support that this patient is homebound (i.e. absences from home require considerable and taxing effort and are for medical reasons or evangelical services or infrequently or short duration when for other reasons) because: Homebound Reason: Patient requires assistance of a person or device to safely leave home Attestation: My signature below is to certify that this patient is under my care and that I, or nurse practitioner, or a physician's appeals assistant working with me, has a [id number] encounter with this patient.
[2018-09-05] MEDS ORDERED: traZODone 50 MG TABLET PO PRN (17:11)
[2018-09-05] MEDS ORDERED: NON-FORMULARY MEDICATION 1 EACH EACH (Melatonin [Melatonin] 5 MG) PO PRN (17:11)
[2018-09-05] MEDS ORDERED: LABETALOL HCL 400 MG PO SCH (17:15)
[2018-09-05] MEDS ORDERED: NON-FORMULARY MEDICATION 1 EACH EACH (Pantoprazole Sodium [Protonix] 40 MG) PO SCH (21:00)
[2018-09-05] MEDS ORDERED: cloNIDine HCl 0.1 MG TABLET PO SCH (21:00)
[2018-09-05] MEDS ORDERED: Bumetanide 1 MG TABLET PO SCH (21:00)
[2018-09-05] MEDS ORDERED: Insulin LISPRO 300 UNITS/3 ML VIAL SQ SCH (21:00)
[2018-09-05] MEDS ORDERED: Furosemide 40 MG TABLET PO SCH (21:00)
[2018-09-06] MEDS ORDERED: SPIRONOLACTONE 100 MG PO SCH (09:00)
[2018-09-06] MEDS ORDERED: LOSARTAN POTASSIUM 100 MG PO SCH (09:00)
== END 2018-09-05 17:39 | disposition home or self-care (01) ==
LOC: EMEROOARM 08:35 → 2ANU 08:35 → SUATTDRO 11:38 → 2ANU 13:20
PROVIDERS: ADMIT Internal Medicine Nephrology; ATTEND Hospitalist

== ENCOUNTER 2018-10-19 00:26 | Inpatient (IN) ==
[2018-10-19] MEDS ORDERED: Aspirin 81 MG TAB.CHEW PO ONE (00:30)
--- NOTE | 2018-10-19 00:40 | Emergency Department Note ---
Disposition Clinical Impression: Pericardial effusion, Elevated troponin Dyspnea Qualifiers: Dyspnea type: dyspnea on exertion Qualified Code(s): R06.09 - Other forms of dyspnea Disposition: Admitted As Inpatient Condition: Good Time of Disposition: 02:52 General Adult HPI - General Stated complaint: fluid retention Time Seen by Provider: 10/19/18 00:29 Source: patient, EMS Mode of arrival: EMS Limitations: no limitations Nursing Notes Reviewed: Yes Vital Signs Reviewed: Yes - History of Present Illness HPI Narrative: 43-year-old male by EMS for shortness of breath and swelling. Patient has a history congestive heart failure. Patient said he had cardiac catheterization about 3 years ago which was "okay". No history of stents or [place]. He is borderline morbidly obese has a history of chronic lower extremity ulcers which is being taken care of at an outside emergency department wound clinic. Patient says that he has been feeling like this for a few days but the chest discomfort and worsening shortness of breath with since today. No radiation to the neck or arm. He has orthopnea paroxysmal nocturnal dyspnea and dyspnea on exertion. Patient's heart score is approximately between 4 and 5. Is here for further evaluation - Related Data Home Medications Medication Instructions Recorded Confirmed Albuterol Sulfate [Ventolin Hfa] 2 puff IH QID 06/28/18 09/05/18 Atorvastatin [Lipitor] 40 mg PO QPM 06/28/18 09/05/18 Bumetanide [Bumex] 1 mg PO BID 09/05/18 09/05/18 Carvedilol [Coreg] 25 mg PO BID 09/05/18 09/05/18 Furosemide [Lasix] 40 mg PO BID 09/05/18 09/05/18 Glucagon,Human Recombinant 1 mg IM PRN PRN 09/05/18 09/05/18 [Glucagon Emergency Kit] Labetalol HCl 400 mg PO Q12H 09/05/18 09/05/18 Losartan Potassium 100 mg PO DAILY 09/05/18 09/05/18 Melatonin 5 mg PO HS PRN 09/05/18 09/05/18 Metoclopramide [Reglan] 10 mg PO ACHS 09/05/18 09/05/18 Pantoprazole Sodium [Protonix] 40 mg PO BID 09/05/18 09/05/18 Spironolactone 100 mg PO DAILY 09/05/18 09/05/18 Trazodone HCl 50 mg PO HS PRN 09/05/18 09/05/18 cloNIDine HCl [CloNIDine HCl] 0.1 mg PO BID 09/05/18 09/05/18 hydrALAZINE [HydrALAZINE] 50 mg PO TID 09/05/18 09/05/18 Previous Rx's Medication Instructions Recorded glipiZIDE [Glucotrol] 2.5 mg PO BIDWM #60 tablet 09/05/18 Allergies Allergy/AdvReac Type Severity Reaction Status Date / Time amlodipine Allergy Swelling Verified 06/28/18 21:58 of Lip/Tongue/Throat Iodinated Contrast- Oral and Allergy kidney Verified 10/19/18 01:06 IV Dye funtion iopamidol Allergy Hives Verified 06/28/18 21:58 broccoli Allergy Swelling Uncoded 07/23/18 13:03 of Lip/Tongue/Throat All systems ED: reviewed and negative except as stated. Cardiovascular: Reports: chest pain, dyspnea on exertion, orthopnea, paroxysmal nocturnal dyspnea Respiratory: Reports: dyspnea Past Medical History - Past Medical History Attestation: Yes The following information was validated with the patient. Source: patient Medical history: Reports: CHF, diabetes, hypertension Surgical history: Reports: cholecystectomy Psychiatric history: Reports: no psych history - Social History Smoking Status: Never smoker Smokeless Tobacco Status: No Alcohol use: Reports: none Drug use: Reports: none Physical Exam - General Limitations: no limitations General appearance: alert - Head Head exam: atraumatic, normocephalic - Eye Eye exam: Present: normal appearance, PERRL - ENT ENT exam: normal exam, normal oropharynx - Neck Neck exam: Present: normal inspection, full ROM - Chest Chest inspection: Present: normal inspection, symmetric chest wall rise - Respiratory Respiratory exam: Present: other (Faint bibasilar rales) - Cardiovascular Cardiovascular exam: Present: regular rate, normal rhythm - Abdominal Exam Abdominal exam: Present: soft, Non-Tender - Extremities Exam Extremities exam: Present: pedal edema, other (Patient is markedly edematous legs wrapped in elastic wrappings for his chronic lower extremity wounds) - Expanded Lower Extremity Exam Neurovascular/Tendon exam: Present: normal capillary refill Gait: not tested/not observed - Back Exam Back exam: Present: normal inspection, full ROM - Neurological Exam Neurological exam: Present: alert, oriented X3 - Psychiatric Psychiatric exam: Present: normal affect, normal mood - Skin Skin exam: Present: warm, dry, intact Course - Reevaluation(s) Reevaluation #1: Patient will undergo workup for cardiac issues he will also get aspirin he will get 1 sublingual nitroglycerin he will get 40 mg IV push Lasix. We will reexa mine his lower extremity wounds and reapply dressing. Disposition pending, providing 45 minutes critical care service for this patient. Time: 00:46 Reevaluation #2: Discussed case with the hospitalist human resources operations specialist Dr. Sosa, patient accepted for admission at 2:50 AM in stable condition discussed with the hospitalist the patient will need a nonemergent cardiac echo later today. Due to the findings with the suspicion of pericardial effusion on chest x-ray Time: 02:51 Vital Signs Temperature 98.7 F 10/19/18 00:30 Pulse Rate 81 10/19/18 00:30 Respiratory Rate 18 10/19/18 00:30 Blood Pressure 127/95 10/19/18 00:30 O2 Sat by Pulse Oximetry 97 10/19/18 00:30 Temperature 98.7 F 10/19/18 00:30 Pulse Rate 83 10/19/18 01:14 Respiratory Rate 16 10/19/18 01:14 Blood Pressure 178/107 10/19/18 01:14 O2 Sat by Pulse Oximetry 96 10/19/18 01:14 Oxygen Delivery Oxygen Delivery Room Air Medical Decision Making - Medical Records Medical records reviewed: Yes I reviewed the patient's medical records. - Lab Data Lab results reviewed: Yes I reviewed the patient's lab results. Result diagrams: 10/19/18 00:40 10/19/18 00:40 Lab Results 10/19/18 10/19/18 10/19/18 Range/Units 00:40 00:40 00:40 WBC 9.4 (4.3-11.1) K/mcL RBC 3.18 L (4.19-5.50) M/mcL Hgb 8.3 L (12.9-16.9) g/dL Hct 27.0 L (37.5-50.1) % MCV 84.9 (83.0-100.0) fL MCH 26.1 L (28.0-33.3) pg MCHC 30.7 L (31.6-35.5) g/dL RDW 13.8 (11.5-14.5) % Plt Count 432 H (140-400) K/mcL MPV 8.9 L (9.4-12.4) fL Immature Gran % 0.4 (0-4) % Seg Neutrophils % 70.0 % Lymphocytes % 15.5 % Monocytes % 7.1 % Eosinophils % 6.5 % Basophils % 0.5 % Neutrophils # 6.6 (1.6-8.9) K/mcL Lymphocytes # 1.5 (0.6-4.6) K/mcL Monocytes # 0.7 (0.0-1.3) K/mcL Eosinophils # 0.6 (0.0-0.6) K/mcL Basophils # 0.1 (0.0-0.2) K/mcL PT 12.2 H (9.4-12.1) Seconds INR 1.1 Sodium 138 (136-145) mEq/L Potassium 4.7 (3.5-5.1) mEq/L Chloride 111 H (98-107) mEq/L Carbon Dioxide 22 L (23-29) mEq/L BUN 32 H (6-20) mg/dL Creatinine 1.77 H (0.70-1.30) mg/dL Est GFR ( Amer) 51 L (> 60) Est GFR (Non-Af Amer) 42 L (> 60) BUN/Creatinine Ratio 18 (6-26) Glucose 124 H (70-105) mg/dL Calculated Osmolality 294 (280-300) Calcium 7.3 L (8.6-10.3) mg/dL Troponin I 0.07 H* (< 0.04) ng/mL B-Natriuretic Peptide (Less than 100) pg/mL 10/19/18 Range/Units 00:40 WBC (4.3-11.1) K/mcL RBC (4.19-5.50) M/mcL Hgb (12.9-16.9) g/dL Hct (37.5-50.1) % MCV (83.0-100.0) fL MCH (28.0-33.3) pg MCHC (31.6-35.5) g/dL RDW (11.5-14.5) % Plt Count (140-400) K/mcL MPV (9.4-12.4) fL Immature Gran % (0-4) % Seg Neutrophils % % Lymphocytes % % Monocytes % % Eosinophils % % Basophils % % Neutrophils # (1.6-8.9) K/mcL Lymphocytes # (0.6-4.6) K/mcL Monocytes # (0.0-1.3) K/mcL Eosinophils # (0.0-0.6) K/mcL Basophils # (0.0-0.2) K/mcL PT (9.4-12.1) Seconds INR Sodium (136-145) mEq/L Potassium (3.5-5.1) mEq/L Chloride (98-107) mEq/L Carbon Dioxide (23-29) mEq/L BUN (6-20) mg/dL Creatinine (0.70-1.30) mg/dL Est GFR ( Amer) (> 60) Est GFR (Non-Af Amer) (> 60) BUN/Creatinine Ratio (6-26) Glucose (70-105) mg/dL Calculated Osmolality (280-300) Calcium (8.6-10.3) mg/dL Troponin I (< 0.04) ng/mL B-Natriuretic Peptide 663 H (Less than 100) pg/mL - Radiology Data Radiology results reviewed: Yes I reviewed the patient's radiology results. - EKG Data EKG #1 EKG attestation: Yes I reviewed and interpreted this EKG. EKG results narrative: Twelve-lead EKG interpreted without the benefit of Cardiologic assistance shows sinus rhythm at 83 bpm, normal QRS and AL and QT corrected. Nonspecific ST-T changes. No acute ischemic changes when compared to a prior EKG dated 09/04/2018.
[2018-10-19] MEDS ORDERED: Furosemide 40 MG/4 ML VIAL IVP ONE (00:47)
[2018-10-19 01:02] LABS: Basophils # 0.1 K/mcL (0.0-0.2); Basophils % 0.5 %; Eosinophils # 0.6 K/mcL (0.0-0.6); Eosinophils % 6.5 %; Hemoglobin 8.3 g/dL (12.9-16.9); Immature Granulocytes % 0.4 % (0-4); Lymphocytes # 1.5 K/mcL (0.6-4.6); Lymphocytes % 15.5 %; Mean Corpuscular HGB Conc 30.7 g/dL (31.6-35.5); Mean Corpuscular Hemoglobin 26.1 pg (28.0-33.3); Mean Corpuscular Volume 84.9 fL (83.0-100.0); Mean Platelet Volume 8.9 fL (9.4-12.4); Monocytes # 0.7 K/mcL (0.0-1.3); Monocytes % 7.1 %; Neutrophils # 6.6 K/mcL (1.6-8.9); Platelet Count 432 K/mcL (140-400); Red Blood Count 3.18 M/mcL (4.19-5.50); Red Cell Distribution Width 13.8 % (11.5-14.5)
[2018-10-19 01:09] LABS: INR 1.1; Prothrombin Time 12.2 Seconds (9.4-12.1)
[2018-10-19 01:21] LABS: Calcium 7.3 mg/dL (8.6-10.3); Potassium 4.7 mEq/L (3.5-5.1)
[2018-10-19 01:46] LABS: Troponin I 0.07 ng/mL (< 0.04)
[2018-10-19] MEDS: Nitroglycerin 0.4 MG TAB.SUBL SL SCH ×2 (06:32→06:33)
[2018-10-19] MEDS ORDERED: Naloxone 0.4 MG/ML INJ IVP PRN (08:53)
[2018-10-19] MEDS ORDERED: *HR* HYDROcodone/Acet 5/325 mg TABLET PO PRN (08:53)
[2018-10-19] MEDS ORDERED: Ondansetron 4 MG/2 ML VIAL IVP PRN (08:53)
[2018-10-19] MEDS: hydrALAZINE 25 MG TABLET PO SCH ×2 (10:07→17:26)
[2018-10-19] MEDS: Furosemide 40 MG/4 ML VIAL IVP SCH ×2 (10:07→17:27)
--- NOTE | 2018-10-19 10:25 | Electrocardiograph Report ---
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
[2018-10-19] MEDS ORDERED: Perflutren Lipid Microsphere 1.3 ML in 0.9 % Sodium Chloride 8.7 ML IVP ONE (14:07)
--- NOTE | 2018-10-19 14:52 | Internal Med History&Physical ---
Date of Encounter: 10/19/18 Time of Encounter: 09:30 Internal Medicine - H&P: HPI Chief complaint: Shortness of breath Admitted From: Emergency Dept Plans for Post Hospital Care: Home History of present illness: Mr. 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 He denied any CP. In the ER his EKG showed normal sinus rhythm and some nonspecific ST, T changes. His initial Trop @ 0.07. When I examined his feet, on the Rt foot heel he does have diffuse swelling, some thick whit colored tissue over heel with bad odor. Pt stated he has been following with wound care at [facility]. Past Med Surg Social Fam HX - Past Medical History Medical history: CHF, diabetes, hypertension Psychiatric history: no psych history - Past Surgical History Surgical History: cholecystectomy Additional surgical history: toe amputation- r pink toe. rotator cuff. right foot - Social History Smoking Status: Never smoker Smokeless Tobacco Status: No Alcohol use: none Drug use: none - Family History Mother Living Status: Hx Family Cardiac Disorders: Yes (ME, CVA) Hx Family Endocrine Disorder: Yes (DM) Father Living Status: Still Living Hx Family Cardiac Disorders: Yes Hx Family Endocrine Disorder: Yes (DM) Sister Living Status: Still Living Hx Family Endocrine Disorder: Yes (DM) Internal Medicine - H&P: Meds Albuterol Sulfate [Ventolin Hfa] 2 puff IH QID 06/28/18 [History] Atorvastatin [Lipitor] 40 mg PO QPM 06/28/18 [History] Bumetanide [Bumex] 1 mg PO BID 09/05/18 [History] Carvedilol [Coreg] 25 mg PO BID 09/05/18 [History] Furosemide [Lasix] 40 mg PO BID 09/05/18 [History] Glucagon,Human Recombinant [Glucagon Emergency Kit] 1 mg IM PRN PRN 09/05/18 [History] Labetalol HCl 400 mg PO Q12H 09/05/18 [History] Losartan Potassium 100 mg PO DAILY 09/05/18 [History] Melatonin 5 mg PO HS PRN 09/05/18 [History] Metoclopramide [Reglan] 10 mg PO ACHS 09/05/18 [History] Pantoprazole Sodium [Protonix] 40 mg PO BID 09/05/18 [History] Spironolactone 100 mg PO DAILY 09/05/18 [History] Trazodone HCl 50 mg PO HS PRN 09/05/18 [History] cloNIDine HCl [CloNIDine HCl] 0.1 mg PO BID 09/05/18 [History] glipiZIDE [Glucotrol] 2.5 mg PO BIDWM #60 tablet 09/05/18 [Rx] hydrALAZINE [HydrALAZINE] 50 mg PO TID 09/05/18 [History] Carvedilol 12.5 mg PO BID 10/19/18 [History] Allergy/AdvReac Type Severity Reaction Status Date / Time amlodipine Allergy Swelling Verified 10/19/18 12:56 of Lip/Tongue/Throat Iodinated Contrast- Oral and Allergy kidney Verified 10/19/18 12:56 IV Dye funtion iopamidol Allergy Hives Verified 10/19/18 12:56 broccoli Allergy Swelling Uncoded 10/19/18 12:56 of Lip/Tongue/Throat All Systems PM: A 10-system review of systems was performed and is negative for pertinent findings except as documented above in the HPI. Review of systems: All the systems are reviewed everything is benign except the systems and symptoms I mentioned in the history of present illness - Constitutional Vitals: Temp Pulse Resp BP Pulse Ox 98.3 F 81 15 162/95 94 10/19/18 11:00 10/19/18 11:00 10/19/18 11:00 10/19/18 11:00 10/19/18 11:00 General appearance: Present: A&O X 3, no acute distress, answers questions appropriately Exam: a - Head Head exam: Present: atraumatic, normal inspection - Neck Neck exam general surgery: Present: supple - Respiratory Respiratory exam: Present: decreased breath sounds. Absent: rales, respiratory distress, rhonchi, wheezes - Cardiovascular Cardiovascular exam: Present: RRR, +S1, +S2. Absent: tachycardia - GI/Abdominal GI/Abdominal exam: Present: normal bowel sounds, soft. Absent: rebound, rigid, tenderness - Extremities Exam Extremities exam: Present: pedal edema. Absent: calf tenderness, tenderness Additional comments: Chronic healed ulcer over Rt great toe at plantar region. He does have 5x5 cm size thick card board appearing tissue noticed over Rt heel with bad odor. - Back Exam Back exam: Absent: CVA tenderness (L), CVA tenderness (R) - Neurological Exam Neurological exam: Present: alert, oriented X3 - Psychiatric Psychiatric exam: Present: normal affect, normal mood - Skin Skin exam: Present: intact. Absent: abrasion Internal Med - H&P Results - Labs CBC & Chem 7: 10/19/18 00:40 10/19/18 00:40 Labs: Short CBC 10/19/18 Range/Units 00:40 WBC 9.4 (4.3-11.1) K/mcL Hgb 8.3 L (12.9-16.9) g/dL Hct 27.0 L (37.5-50.1) % Plt Count 432 H (140-400) K/mcL Neutrophils # 6.6 (1.6-8.9) K/mcL BMP 10/19/18 00:40 Sodium 138 Potassium 4.7 Chloride 111 H Carbon Dioxide 22 L BUN 32 H Creatinine 1.77 H Glucose 124 H Calcium 7.3 L Cardiac Enzymes 10/19/18 10/19/18 Range/Units 00:40 09:47 Troponin I 0.07 H* 0.07 H* (< 0.04) ng/mL - Impressions ITS Impressions Chest X-Ray 10/19/18 00:30 IMPRESSION: Enlarged cardiac silhouette morphology is suspicious for pericardial effusion. Small bilateral effusions. D/ / Dioni Dimas / Dioni Dimas Interpreting Provider: Dioni Dimas - Assessment and Plan (1) CHF (congestive heart failure) Current Visit: No Status: Chronic Assessment and plan: Acute on chronic diastolic CHF exacerbation cont on tele check serial trop Started on Lasix 40 mg IV BID Cont home med Coreg, ARB, ASA, Statin and Aldactone Qualifiers: Qualified Code(s): I50.32 - Chronic diastolic (congestive) heart failure (2) Elevated troponin Current Visit: Yes Status: Acute Assessment and plan: Due to demand ischemia slightly elevated @ 0.07 cont trend on trop 2D Echo ordered (3) Pericardial effusion Current Visit: Yes Status: Acute Assessment and plan: Reviewed X ray of chest - concerning for pericardial effusion he does have chronic pericardial effusion will check stat 2 D Echo card consulted for further eval (4) DVT prophylaxis Current Visit: No Status: Acute Assessment and plan: on heparin SQ (5) CKD (chronic kidney disease) stage 3, GFR 30-59 ml/min Current Visit: No Status: Chronic Assessment and plan: CKD-3 Cr at baseline (6) Diabetes mellitus Current Visit: No Status: Chronic Assessment and plan: ADA diet on ISS Will check HbA1C Qualifiers: Qualified Code(s): E08.22 - Diabetes mellitus due to underlying condition with diabetic chronic kidney disease; 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 - Time Spent With Patient Total time spent is greater than 50% in coordination of care (as documented) at patient's floor/unit and/or counseling patient:
[2018-10-19] MEDS ORDERED: Melatonin 3 MG TABLET PO PRN (14:58)
[2018-10-19] MEDS ORDERED: traZODone 50 MG TABLET PO PRN (14:58)
--- NOTE | 2018-10-19 15:09 | Cardiology Consult Note ---
Date of Encounter: 10/19/18 Time of Encounter: 15:05 Assessment and Plan (1) Acute on chronic diastolic CHF (congestive heart failure), NYHA class 3 Current Visit: Yes Status: Acute Per cardiology: -Acute on chronic diastolic CHF. -Reports weight gain, increased abdominal girth, increased edema, shortness of breath. -On IV lasix. -TTE pending. -TTE 06/2018 with LVEF 65-70%, mild-moderate concentric LVH, mild diastolic dsyfunction, moderate pericardial effusion, no wall motion abnormalities. -BNP 663. -Agree with IV lasix. -Strict i/os, fluid restriction daily weights. (2) Pericardial effusion Current Visit: Yes Status: Acute Per cardiology: -Chest x-ray suspicious for pericardial effusion. -TTE 06/2018 with moderate pericardial effusion. -No clinical signs/symptoms of tamponade. -Current TTE pending. -No clinincal sign/symptoms of tamponade, no urgent indication for pericardialcentesis. (3) Elevated troponin Current Visit: Yes Status: Acute Per cardiology: -Troponins 0.07x2 in the setting of CHF, CKD -Repots atyical chest pain. -TTE pending. -On ASA, statin, BB. -ECG with no acute ischemic changes noted. -Reports LHC a few months ago at [facility] without significant blockages. -Demand ischemia, no cardiac rehab consult warranted. -Will obatin records from [place]. Discussion w patient/family: The assessment and plan as outlined above was discussed with the patient who expressed understanding and agreement. All questions were answered. Thank you for involving us in the care of your patient. Please call with any questions. Discussed and reviewed with . History of Present Illness Consult date: 10/19/18 Requesting physician: Shaila Ventura Consult reason: pericardial effusion Chief complaint: shortness of breath History of present illness: Mr. Reynolds is a 43 year old male with a relevant past medical history of diastolic CHF, CKD, DM, HTN, chronic wounds, who presented to [facility] with complaints of shortness of breath and chest pain. Patient states symptoms started yesterday while sitting on the couch. Patient also reports increased abdominal girth and weight gain. Reports increased edema. Patient denies current chest pain. Reports shortness of breath is currently improved. Past Med Surg Social Fam HX - Past Medical History Attestation: Yes The following information was validated with the patient. Source: patient, old records reviewed Medical history: CHF, diabetes, hypertension, renal disease Psychiatric history: no psych history - Past Surgical History Surgical History: cholecystectomy Additional surgical history: toe amputation- r pink toe. rotator cuff. right foot - Social History Smoking Status: Never smoker Smokeless Tobacco Status: No Alcohol use: none Drug use: none - Family History Mother Living Status: Hx Family Cardiac Disorders: Yes ([place], CVA) Hx Family Endocrine Disorder: Yes (DM) Father Living Status: Still Living Hx Family Cardiac Disorders: Yes Hx Family Endocrine Disorder: Yes (DM) Sister Living Status: Still Living Hx Family Endocrine Disorder: Yes (DM) Medications and Allergies Albuterol Sulfate [Ventolin Hfa] 2 puff IH QID 06/28/18 [History] Atorvastatin [Lipitor] 40 mg PO QPM 06/28/18 [History] Bumetanide [Bumex] 1 mg PO BID 09/05/18 [History] Carvedilol [Coreg] 25 mg PO BID 09/05/18 [History] Furosemide [Lasix] 40 mg PO BID 09/05/18 [History] Glucagon,Human Recombinant [Glucagon Emergency Kit] 1 mg IM PRN PRN 09/05/18 [History] Labetalol HCl 400 mg PO Q12H 09/05/18 [History] Losartan Potassium 100 mg PO DAILY 09/05/18 [History] Melatonin 5 mg PO HS PRN 09/05/18 [History] Metoclopramide [Reglan] 10 mg PO ACHS 09/05/18 [History] Pantoprazole Sodium [Protonix] 40 mg PO BID 09/05/18 [History] Spironolactone 100 mg PO DAILY 09/05/18 [History] Trazodone HCl 50 mg PO HS PRN 09/05/18 [History] cloNIDine HCl [CloNIDine HCl] 0.1 mg PO BID 09/05/18 [History] glipiZIDE [Glucotrol] 2.5 mg PO BIDWM #60 tablet 09/05/18 [Rx] hydrALAZINE [HydrALAZINE] 50 mg PO TID 09/05/18 [History] Carvedilol 12.5 mg PO BID 10/19/18 [History] Allergy/AdvReac Type Severity Reaction Status Date / Time amlodipine Allergy Swelling Verified 10/19/18 12:56 of Lip/Tongue/Throat Iodinated Contrast- Oral and Allergy kidney Verified 10/19/18 12:56 IV Dye funtion iopamidol Allergy Hives Verified 10/19/18 12:56 broccoli Allergy Swelling Uncoded 10/19/18 12:56 of Lip/Tongue/Throat All Systems Review: The remainder of the systems were reviewed and are negative - Cardiovascular Cardiovascular: as per HPI, chest pain at rest, dyspnea at rest, dyspnea on exertion, leg edema Physical Examination Vital Signs Temperature 98.7 F 10/19/18 00:30 Pulse Rate 81 10/19/18 00:30 Respiratory Rate 18 10/19/18 00:30 Blood Pressure 127/95 10/19/18 00:30 O2 Sat by Pulse Oximetry 97 10/19/18 00:30 Temperature 98.3 F 10/19/18 11:00 Pulse Rate 81 10/19/18 11:00 Respiratory Rate 15 10/19/18 11:00 Blood Pressure 162/95 10/19/18 11:00 O2 Sat by Pulse Oximetry 94 10/19/18 11:00 Oxygen Delivery Oxygen Delivery Room Air General: Conversant, No Apparent Distress HEENT: Atraumatic, Normocephaly, Mucus Membranes Moist Neck: No JVD, Normal carotid pulses Cardiac: Reg Rate and Rhythm, Normal S1 and S2, No Murmur Lungs: Normal Breath Sounds, No Wheeze, Rales, Rhonchi Neuro: Alert and responsive, No focal deficits noted Abdomen: Soft, Non-Tender Skin: No rashes noted on visualized skin, Other (Dressings noted to right foot. ) Musculoskeletal: No Chest Wall Tenderness Extremities: No Clubbing, No Cyanosis, Normal Pulses, Other (Bilateral lower extremities with lymphedema noted. ) Results 10/19/18 00:40 10/19/18 00:40 Lab Results Impressions Chest X-Ray 10/19/18 00:30 IMPRESSION: Enlarged cardiac silhouette morphology is suspicious for pericardial effusion. Small bilateral effusions. D/ / Dioni Dimas / Dioni Dimas Interpreting Provider: Dioni Dimas Active Medications Acetaminophen (Tylenol) 650 mg PO Q6HR PRN PRN Reason: Mild Pain/Fever Stop: 04/20/19 08:54 Hydrocodone Bitart/Acetaminophen ([place] 5-325 Mg) 1 tab PO Q6HR PRN PRN Reason: Moderate Pain Stop: 04/20/19 08:54 Albuterol Sulfate (Albuterol Inhaler) 2 puff IH QID [facility] Stop: 04/20/19 17:01 Atorvastatin Calcium (Lipitor) 40 mg PO QPM [facility] Stop: 04/20/19 18:01 Carvedilol (Coreg) 25 mg PO BID [facility]; Protocol Stop: 04/20/19 21:01 Clonidine HCl (Clonidine Hcl) 0.1 mg PO BID [facility] Stop: 04/20/19 21:01 Furosemide (Lasix) 40 mg IVP BIDDIURETIC [facility] Stop: 04/20/19 09:01 Last Admin: 10/19/18 10:07 Dose: 40 mg Documented by: Heparin Sodium (Porcine) (Heparin) 5,000 unit SQ Q12HR [facility] Stop: 04/20/19 18:01 Hydralazine HCl (Hydralazine) 10 mg IVP Q6HR PRN PRN Reason: Hypertension Stop: 04/20/19 08:21 Hydralazine HCl (Hydralazine) 50 mg PO Q8HR [facility] Stop: 04/20/19 08:31 Last Admin: 10/19/18 10:07 Dose: 50 mg Documented by: Naloxone HCl (Narcan) 0.4 mg IVP Q2MPRN PRN PRN Reason: SEE COMMENTS Stop: 04/20/19 08:54 Non-Formulary Medication (Carvedilol) 12.5 mg PO BID [facility] Stop: 04/20/19 21:01 Non-Formulary Medication (Losartan Potassium) 100 mg PO DAILY [facility] Stop: 04/21/19 09:01 Non-Formulary Medication (Melatonin) 5 mg PO HS PRN PRN Reason: Sleep Non-Formulary Medication (Pantoprazole Sodium [Protonix]) 40 mg PO BID [facility] Stop: 04/20/19 21:01 Non-Formulary Medication (Spironolactone) 100 mg PO DAILY [facility] Stop: 04/21/19 09:01 Ondansetron HCl (Zofran) 4 mg IVP Q8HR PRN PRN Reason: Nausea And Vomiting Stop: 04/20/19 08:54 Trazodone HCl (Trazodone) 50 mg PO HS PRN PRN Reason: Insomnia Stop: 04/20/19 14:59 Laboratory Tests 10/19/18 10/19/18 10/19/18 00:40 00:40 00:40 Hgb 8.3 L Creatinine 1.77 H Troponin I 0.07 H* B-Natriuretic Peptide 663 H 10/19/18 09:47 Hgb Creatinine Troponin I 0.07 H* B-Natriuretic Peptide - Imaging and Cardiology Chest Xray: report reviewed Echo: pending, report reviewed - EKG Interpretation EKG results cardiology: personally reviewed (ECG with SR, HR 83.), other (Teleme try reviewed with average HR noted to be 81, SR.) Consult Discharge Plan - Plan Referrals: Herminio Hawley DO [Resident] - 10/23/18 2:00 pm
--- NOTE | 2018-10-19 15:58 | Podiatry Consult Note ---
Date of Encounter: 10/19/18 Time of Encounter: 15:52 Assessment and Plan (1) Diabetic ulcer of right heel Current visit: Yes Status: Acute Assessment: Braun stage 2 ulceration right calcaneous Maceration noted to wound bed Surrounding tissue hyperkeratotic No erythema, no streaking, no calor, no dolor Generalized edema/morbidly obese WBC 9.4, ESR, CRP, MRI pending TAI pending Plan: Will order xray of right foot Verbal consent obtained timeout performed. Right foot and ankle prepped and draped ususal manner. Under sterile technique and using sterile instrumentation surgical excisional wound debridement was carried out with #15 scalepl blade, pickup, scissor, to remove all devitalized tissue of the right calcaneal ulcer. Minimal bleeding controlled with dressing. Debridement was carried down to the subcutaneous tissue. Cleansed wounds with 0.9 NS Painted right calcaneous with betadine Covered right hallux ulcer and right calcaneous ulcer with calcium alginate, 4x4 dry gauze, and kerlix. Secured with coban. Will order heel medix boots. Wound care orders placed. Will continue to monitor. Qualifiers: Diabetes mellitus type: type 2 Non-pressure ulcer stage: with fat layer exposed Qualified Code(s): E11.621 - Type 2 diabetes mellitus with foot ulcer; L97.412 - Non-pressure chronic ulcer of right heel and midfoot with fat layer exposed (2) Diabetic ulcer of right great toe Current visit: Yes Status: Acute Assessment: Braun stage 2 ulcer right hallux Surrounding tissue hyperkeratotic No erythema, no streaking, no calor, no dolor Generalized edema/morbidly obese WBC 9.4, ESR, CRP, MRI pending TAI pending Plan: Sharp surgical excisional debridement of all hyperkeratotic tissue/callus lesions IPJ #1 toe right foot with #15 scalpel blade reveals ulceration. no undermining or tunneling noted. No cellulitis or lymphangitis noted. No abscess noted. Wound thoroughly irrigated with sterile saline. Dry sterile dressing applied with calcium alginate. Covered with 4x4 dry gauze, kerlix, and secured with coban. Continue with local wound care. Orders placed. Ulcer appears stable. Will continue to monitor. History of Present Illness HPI: Mr. Reynolds is a 43 year old male who presented to the ED today for shortness of breath. Patient has PMH of DM 2, HTN, HLD, and CHF. Briefly, patient presented to the ER for shortness of breath subsequently upon admission he was found to have ulceration of right calcaneus and right hallux. Patient states he has been following at [facility] in the wound care center. States they have been placing Betadine dressings to right calcaneus and right hallux. Patient reports right hallux ulcer formed 2 weeks ago when he kicked a door and cut his toe. States 1 week ago the calcaneus ulcer began to form due to swelling of right lower ex tremity. States he has only been seen at [facility] for 1 week for wound care. Reports he was supposed to have vascular studies done today but was unable to due to acute exacerbation. Patient denies any fevers, chills, nausea, vomiting, or diarrhea. Denies any calf pain, chest pain, or shortness of breath. WBC 9.4 upon admission. No documented fevers. CRP ESR and MRI pending. No other questions or concerns at this time. Past Med Surg Social Fam HX - Past Medical History Medical history: CHF, diabetes, hypertension, renal disease Psychiatric history: no psych history - Past Surgical History Surgical History: cholecystectomy Additional surgical history: toe amputation- r pink toe. rotator cuff. right foot - Social History Smoking Status: Never smoker Smokeless Tobacco Status: No Alcohol use: none Drug use: none - Family History Mother Living Status: Hx Family Cardiac Disorders: Yes ([place], CVA) Hx Family Endocrine Disorder: Yes (DM) Father Living Status: Still Living Hx Family Cardiac Disorders: Yes Hx Family Endocrine Disorder: Yes (DM) Sister Living Status: Still Living Hx Family Endocrine Disorder: Yes (DM) Medications and Allergies Albuterol Sulfate [Ventolin Hfa] 2 puff IH QID 06/28/18 [History] Atorvastatin [Lipitor] 40 mg PO QPM 06/28/18 [History] Bumetanide [Bumex] 1 mg PO BID 09/05/18 [History] Carvedilol [Coreg] 25 mg PO BID 09/05/18 [History] Furosemide [Lasix] 40 mg PO BID 09/05/18 [History] Glucagon,Human Recombinant [Glucagon Emergency Kit] 1 mg IM PRN PRN 09/05/18 [History] Labetalol HCl 400 mg PO Q12H 09/05/18 [History] Losartan Potassium 100 mg PO DAILY 09/05/18 [History] Melatonin 5 mg PO HS PRN 09/05/18 [History] Metoclopramide [Reglan] 10 mg PO ACHS 09/05/18 [History] Pantoprazole Sodium [Protonix] 40 mg PO BID 09/05/18 [History] Spironolactone 100 mg PO DAILY 09/05/18 [History] Trazodone HCl 50 mg PO HS PRN 09/05/18 [History] cloNIDine HCl [CloNIDine HCl] 0.1 mg PO BID 09/05/18 [History] glipiZIDE [Glucotrol] 2.5 mg PO BIDWM #60 tablet 09/05/18 [Rx] hydrALAZINE [HydrALAZINE] 50 mg PO TID 09/05/18 [History] Carvedilol 12.5 mg PO BID 10/19/18 [History] 3 Allergy/AdvReac Type Severity Reaction Status Date / Time amlodipine Allergy Swelling Verified 10/19/18 12:56 of Lip/Tongue/Throat Iodinated Contrast- Oral and Allergy kidney Verified 10/19/18 12:56 IV Dye funtion iopamidol Allergy Hives Verified 10/19/18 12:56 broccoli Allergy Swelling Uncoded 10/19/18 12:56 of Lip/Tongue/Throat All Systems Reviewed: The remainder of the systems were reviewed and are negative - Constitutional Constitutional: no fever(s) - Cardiovascular Cardiovascular: dyspnea, leg edema, pedal edema, other (pedal ulcers), no chest pain - Respiratory Respiratory: dyspnea - Musculoskeletal Musculoskeletal: numbness, tingling Physical Exam - Constitutional Vitals: Temp Pulse Resp BP Pulse Ox 98.3 F 81 15 162/95 94 10/19/18 11:00 10/19/18 11:00 10/19/18 11:00 10/19/18 11:00 10/19/18 11:00 Exam: Constitiutional: Alert and oriented x 3. Well nourished. No acute distress noted, morbidly obese Vascular: doppler DP/PT BLE, CFT <3 sec to all digits, warm to warm from tibia to toes bilaterally, no calf pain with squeeze Neurologic: Diminished sensation to touch normal plantar response Dermatologic: Braun stage 2 ulceration noted to right hallux and right calcaneous. Hyperkeratosis noted to periwound area. Right calcaneous with maceration noted to wound bed. Moderate drainage noted. Odor noted. Right hallux with pink wound bed. No drainage noted. No palor, no dolor. Generalized edema Musculoskeletal: 2/5 muscle strength and normal tone bilaterally. Results - Labs Result Diagrams: 10/19/18 00:40 05 00:40 Labs: Abnormal lab results RBC 3.18 M/mcL (4.19-5.50) L 10/19/18 00:40 Hgb 8.3 g/dL (12.9-16.9) L 10/19/18 00:40 Hct 27.0 % (37.5-50.1) L 10/19/18 00:40 MCH 26.1 pg (28.0-33.3) L 10/19/18 00:40 MCHC 30.7 g/dL (31.6-35.5) L 10/19/18 00:40 Plt Count 432 K/mcL (140-400) H 10/19/18 00:40 MPV 8.9 fL (9.4-12.4) L 10/19/18 00:40 PT 12.2 Seconds (9.4-12.1) H 10/19/18 00:40 Chloride 111 mEq/L (98-107) H 10/19/18 00:40 Carbon Dioxide 22 mEq/L (23-29) L 10/19/18 00:40 BUN 32 mg/dL (6-20) H 10/19/18 00:40 1.77 mg/dL (0.70-1.30) H 10/19/18 00:40 Est GFR ( Amer) 51 (> 60) L 10/19/18 00:40 Est GFR (Non-Af Amer) 42 (> 60) L 10/19/18 00:40 Glucose 124 mg/dL (70-105) H 10/19/18 00:40 Calcium 7.3 mg/dL (8.6-10.3) L 10/19/18 00:40 0.07 ng/mL (< 0.04) H* 10/19/18 09:47 B-Natriuretic Peptide 663 pg/mL (Less than 100) H 10/19/18 00:40 H & H 10/19/18 Range/Units 00:40 Hgb 8.3 L (12.9-16.9) g/dL Hct 27.0 L (37.5-50.1) % All other labs normal. Consult Discharge Plan - Plan Referrals: Herminio Hawley DO [Resident] - 10/23/18 2:00 pm
[2018-10-19] MEDS ORDERED: hydrALAZINE 25 MG TABLET PO SCH (16:00)
[2018-10-19] MEDS: *HR* Heparin 5,000 UNIT/ML VIAL SQ SCH (17:26)
[2018-10-19] MEDS: Piperacillin/Tazobactam 3.375 GM in 0.9 % Sodium Chloride Mini Bag 100 ML IVP SCH (17:37)
[2018-10-19 17:43] LABS: Estimated Average Glucose 160 mg/dl; Hemoglobin A1C 7.2 %
[2018-10-19] MEDS: cloNIDine HCl 0.1 MG TABLET PO SCH (21:32)
[2018-10-19] MEDS: Acetaminophen 325 MG TABLET PO PRN (21:35)
[2018-10-20] MEDS: hydrALAZINE 25 MG TABLET PO SCH ×3 (01:04→15:45)
[2018-10-20] MEDS: Piperacillin/Tazobactam 3.375 GM in 0.9 % Sodium Chloride Mini Bag 100 ML IVP SCH ×3 (01:05→15:45)
[2018-10-20 02:27] LABS: Calcium 7.1 mg/dL (8.6-10.3); Chol/HDL Ratio 5.1 (0-4.9); Magnesium 1.7 mg/dL (1.6-2.6); Potassium 4.7 mEq/L (3.5-5.1)
[2018-10-20] MEDS: *HR* Heparin 5,000 UNIT/ML VIAL SQ SCH ×2 (05:00→18:24)
[2018-10-20] MEDS: Furosemide 40 MG/4 ML VIAL IVP SCH (08:22)
[2018-10-20] MEDS: cloNIDine HCl 0.1 MG TABLET PO SCH ×2 (08:22→20:13)
--- NOTE | 2018-10-20 09:34 | Event Note ---
Date of Encounter: 10/20/18 Time of Encounter: 09:30 - Cardiology Event Note TTE shows small pericardial effusion without tamponade. Patient remains hypertensive despite max tolerated medical therapy complicated with severe morbid obesity. He is diuresing nicely on current regimen. Will transition to torsemide 40mg po BID, renal function stable.
--- NOTE | 2018-10-20 11:45 | Internal Med Progress Note ---
Hospitalist Progress Note - Encounter Date of Encounter: 10/20/18 Time of Encounter: 11:38 - Subjective Interval History: Patient was seen and examined at bedside currently denies any chest pain or shortness of breath. He did undergo MRI of his right that this a.m. pending results. TTE does show small circumferential pericardial effusion without evide nce of tamponade. LVEF 60% moderate concentric left ventricular hypertrophy moderate ventricular diastolic dysfunction mildly dilated left atrium normal right ventricular structure and function mild tricuspid regurgitation no pulmonary hypertension mild aortic dilatation-patient was seen by cardiology placed on torsemide. Discussed treatment plan with the patient who verbalized understanding - Exam Vitals: Temp Pulse Resp BP Pulse Ox 98.0 F 76 16 170/91 97 10/20/18 07:08 10/20/18 07:08 10/20/18 07:08 10/20/18 07:08 10/20/18 07:08 Exam: Gen. morbid obese Skin: Free of rash and discoloration. Eyes: Sclera is white. There is no discharge from eyes. ENMT: Oral/pharyngeal mucosa is normal in appearance. There is no discharge from nose or ears. Respiratory: Normal breath sounds with no crackles and wheezes bilaterally. CV: Heart is regular with no gallop or murmur. GI: Abdomen is flat and soft with no palpable mass or visceromegaly. : There is no tenderness in patient's flanks bilaterally. Neuro exam: He has good strength in upper and lower extremities. He has normal eye movements. Psychiatric: He has normal affect. His thought process is appropriate to the situation. Extremities-right extremity with dressing intact brisk capillary refill pedal edema bilaterally - Assessment and Plan (1) Diabetes mellitus Current Visit: No Status: Chronic Assessment and Plan: ADA diet on ISS [id number] (2) DVT prophylaxis Current Visit: No Status: Acute Assessment and Plan: on heparin SQ (3) CKD (chronic kidney disease) stage 3, GFR 30-59 ml/min Current Visit: No Status: Chronic Assessment and Plan: CKD-3 Cr at baseline-monitor closely during diuresing Avoid nephrotoxins Monitor intake and output daily weights Renal dose antibiotics (4) CHF (congestive heart failure) Current Visit: No Status: Chronic Assessment and Plan: Acute on chronic diastolic CHF exacerbation cont on tele check serial trop-flat adynamic Cardiology changed Lasix to torsemide Cont home med Coreg, ARB, ASA, Statin and Aldactone 1500 mL fluid restriction Strict intake and output Monitor daily weight Low-sodium diet (5) Pericardial effusion Current Visit: Yes Status: Acute Assessment and Plan: Reviewed X ray of chest - concerning for pericardial effusion he does have chronic pericardial effusion Cardiac echo Impressions: LVEF 60%. Moderate concentric left ventricular hypertrophy. Moderate left ventricular diastolic dysfunction. Mildly dilated left atrium. Normal right ventricular structure and function. Mild tricuspid regurgitation. No pulmonary hypertension. Mild aortic dilatation. Small circumferential pericardial effusion without echocardiographic evidence of tamponade. card consulted for further eval (6) Elevated troponin Current Visit: Yes Status: Acute Assessment and Plan: Due to demand ischemia slightly elevated @ 0.07-flat adynamic 2D Echo Impressions: LVEF 60%. Moderate concentric left ventricular hypertrophy. Moderate left ventricular diastolic dysfunction. Mildly dilated left atrium. Normal right ventricular structure and function. Mild tricuspid regurgitation. No pulmonary hypertension. Mild aortic dilatation. Small circumferential pericardial effusion without echocardiographic evidence of tamponade. (7) Diabetic ulcer of right great toe Current Visit: Yes Status: Acute Assessment and Plan: Podiatry has been consulted and appreciate recommendations ESR 116, CRP 10 White count 9.4 no fever Dressing/wound care per podiatry recommendations Continue current antibiotic treatment of vancomycin and Zosyn (8) Diabetic ulcer of right heel Current Visit: Yes Status: Acute Assessment and Plan: Podiatry has been consulted and appreciate recommendations ESR 116, CRP 10 White count 9.4 no fever Underwent MRI which is pending at this time Dressing/wound care per podiatry recommendations Continue with current antibiotics-vancomycin and Zosyn - Time Spent with Patient Total time spent is greater than 50% in coordination of care (as documented) at patient's floor/unit and/or counseling patient: Internal Medicine: Result - Labs CBC & Chem 7: 10/19/18 00:40 10/20/18 02:00 Labs: BMP 10/20/18 02:00 Sodium 139 Potassium 4.7 Chloride 114 H Carbon Dioxide 23 BUN 29 H Creatinine 1.84 H Glucose 114 H Calcium 7.1 L Cardiac Enzymes 10/19/18 10/19/18 10/20/18 Range/Units 12:55 18:29 02:00 Troponin I 0.07 H* 0.07 H* 0.06 H* (< 0.04) ng/mL - ABG Interpretation ABG results: PT/INR, D-dimer PT 12.2 Seconds (9.4-12.1) H 10/19/18 00:40 - Impressions Impressions Echocardiogram 10/19/18 08:58 Impressions: LVEF 60%. Moderate concentric left ventricular hypertrophy. Moderate left ventricular diastolic dysfunction. Mildly dilated left atrium. Normal right ventricular structure and function. Mild tricuspid regurgitation. No pulmonary hypertension. Mild aortic dilatation. Small circumferential pericardial effusion without echocardiographic evidence of tamponade. Left Ventricular Wall Motion: Rest Echo Findings All wall segments showed normal motion. Findings: Study Quality * Technically adequate exam. ECG Findings * Normal sinus rhythm. Left Ventricle * LVEF 60%. * Normal LV chamber size and systolic function. * Moderate concentric left ventricular hypertrophy. * Moderate left ventricular diastolic dysfunction. * Definity echo contrast was used. Right Ventricle * Normal right ventricular structure and function. Left Atrium * Mildly dilated left atrium. Right Atrium * Normal right atrial size. Interatrial Septum * Interatrial septum not well evaluated. * No evidence of PFO by color Doppler. Aortic Valve * Trileaflet aortic valve with normal function. * No aortic stenosis. * Trace aortic regurgitation. Mitral Valve * Normal mitral valve structure. * No mitral stenosis. * Trace mitral regurgitation. Tricuspid Valve * Normal tricuspid valve structure. * No tricuspid stenosis. * Mild tricuspid regurgitation. * Estimated RVSP is 23 mmHg. * Estimated RA pressure is 3 mmHg. * No pulmonary hypertension. Pulmonic Valve * Pulmonic valve is not well visualized. * No pulmonic stenosis. * No pulmonic regurgitation. Aorta * The aortic root is mildly dilated. * The aortic root is 3.8 cm. Pericardium * There is a small circumferential pericardial effusion present. * There is no echocardiographic evidence of tamponade. IVC * The IVC is not dilated. * > 50% respiratory change Foot X-Ray 10/19/18 17:49 IMPRESSION: No plain film evidence of osteomyelitis. Mild diffuse soft tissue swelling throughout the right foot. 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
[2018-10-20] MEDS: Torsemide 20 MG TABLET PO SCH (15:45)
[2018-10-21] MEDS: Piperacillin/Tazobactam 3.375 GM in 0.9 % Sodium Chloride Mini Bag 100 ML IVP SCH ×3 (00:16→17:52)
[2018-10-21] MEDS: hydrALAZINE 25 MG TABLET PO SCH ×3 (00:16→17:52)
[2018-10-21 04:51] LABS: Basophils % 0.5 %; Eosinophils # 0.7 K/mcL (0.0-0.6); Eosinophils % 9.2 %; Hematocrit 30.1 % (37.5-50.1); Hemoglobin 9.3 g/dL (12.9-16.9); Immature Granulocytes % 3.1 % (0-4); Lymphocytes # 0.9 K/mcL (0.6-4.6); Lymphocytes % 11.2 %; Mean Corpuscular HGB Conc 30.9 g/dL (31.6-35.5); Mean Corpuscular Hemoglobin 26.3 pg (28.0-33.3); Mean Platelet Volume 9.2 fL (9.4-12.4); Monocytes # 0.7 K/mcL (0.0-1.3); Monocytes % 8.6 %; Neutrophils # 5.2 K/mcL (1.6-8.9); Platelet Count 396 K/mcL (140-400); Red Blood Count 3.54 M/mcL (4.19-5.50); Red Cell Distribution Width 13.6 % (11.5-14.5); Segmented Neutrophils % 67.4 %
[2018-10-21] MEDS: *HR* Heparin 5,000 UNIT/ML VIAL SQ SCH ×2 (05:35→17:52)
--- NOTE | 2018-10-21 10:07 | Cardiology Progress Note ---
Date of Encounter: 10/21/18 Time of Encounter: 09:45 Assessment and Plan (1) Acute on chronic diastolic CHF (congestive heart failure), NYHA class 3 Current Visit: Yes Status: Acute Per cardiology: -Acute on chronic diastolic CHF. -Reports weight gain, increased abdominal girth, increased edema, shortness of breath. -On torsemide and aldactone. Currently net negative 3300ml. Reports symptoms improved. -TTE with LVEF preserved, Moderate concentric left ventricular hypertrophy. Moderate left ventricular diastolic dysfunction. Mildly dilated left atrium. Mild tricuspid regurgitation. Mild aortic dilatation. Small circumferential pericardial effusion without echocardiographic evidence of tamponade. -TTE 06/2018 with LVEF 65-70%, mild-moderate concentric LVH, mild diastolic dsyfunction, moderate pericardial effusion, no wall motion abnormalities. -BNP 663. -Continue aldactone and torsemide, -Strict i/os, fluid restriction, daily weights. CHF education reviewed with patient. -Cardiology will sign off. 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 (2) Pericardial effusion Current Visit: Yes Status: Acute Per cardiology: -Chest x-ray suspicious for pericardial effusion. -TTE 06/2018 with moderate pericardial effusion. -No clinical signs/symptoms of tamponade. -Current TTE with small pericardial effusion. -No clinincal sign/symptoms of tamponade, no urgent indication for pericardialcentesis. (3) Elevated troponin Current Visit: Yes Status: Acute Per cardiology: -Troponins 0.07x2 in the setting of CHF, CKD -Repots atyical chest pain. -TTE with LVEF preserved, no wall motion abnormalities. -On ASA, statin, BB. -ECG with no acute ischemic changes noted. -Reports LHC a few months ago at [facility] without significant blockages. -Demand ischemia, no cardiac rehab consult warranted. Discussion w patient/family: The assessment and plan as outlined above was discussed with the patient who expressed understanding and agreement. All questions were answered. Thank you for involving us in the care of your patient. Please call with any questions. Discussed and reviewed with . Subjective Principal diagnosis: CHF Interval history: Patient reports symptom improvement. Objective Vital Signs, Last 4 Hours Temp Pulse Resp BP Pulse Ox 10/21/18 08:22 98.3 F 78 16 154/99 96 General: Conversant, No Apparent Distress HEENT: Atraumatic, Normocephaly, Mucus Membranes Moist Neck: No JVD, Normal carotid pulses Cardiac: Reg Rate and Rhythm, Normal S1 and S2, No Murmur Lungs: Normal Breath Sounds, No Wheeze, Rales, Rhonchi Neuro: Alert and responsive, No focal deficits noted Abdomen: Soft, Non-Tender Skin: No rashes noted on visualized skin, Other (Bilateral dressings noted to lower extremities. ) Musculoskeletal: No Chest Wall Tenderness Extremities: No Clubbing, No Cyanosis, Normal Pulses, Other (Bilateral lower extremity lymphedema noted. ) Results 10/21/18 04:35 10/20/18 02:00 Lab Results Impressions Foot MRI 10/19/18 14:53 IMPRESSION: Diffuse soft tissue swelling and subcutaneous edema. No osteomyelitis. D/ / 10/20/2018 11:40:13 Truong Davis MD / Fabiana Bonilla Interpreting Provider: Truong Davis MD Active Medications Acetaminophen (Tylenol) 650 mg PO Q6HR PRN PRN Reason: Mild Pain/Fever Stop: 04/20/19 08:54 Last Admin: 10/19/18 21:35 Dose: 650 mg Documented by: Hydrocodone Bitart/Acetaminophen (Conklin 5-325 Mg) 1 tab PO Q6HR PRN PRN Reason: Moderate Pain Stop: 04/20/19 08:54 Albuterol Sulfate (Albuterol Inhaler) 2 puff IH QIDR [facility] Stop: 04/20/19 17:01 Last Admin: 10/21/18 04:42 Dose: 2 puff Documented by: Atorvastatin Calcium (Lipitor) 40 mg PO HS [facility] Stop: 04/20/19 21:01 Last Admin: 10/20/18 20:13 Dose: 40 mg Documented by: Carvedilol (Coreg) 25 mg PO BIDWM [facility]; Protocol Stop: 04/20/19 21:01 Last Admin: 10/20/18 15:44 Dose: 25 mg Documented by: Clonidine HCl (Clonidine Hcl) 0.1 mg PO BID [facility] Stop: 04/20/19 21:01 Last Admin: 10/20/18 20:13 Dose: 0.1 mg Documented by: Heparin Sodium (Porcine) (Heparin) 5,000 unit SQ Q12HR [facility] Stop: 04/20/19 18:01 Last Admin: 10/21/18 05:35 Dose: 5,000 unit Documented by: Hydralazine HCl (Hydralazine) 10 mg IVP Q6HR PRN PRN Reason: Hypertension Stop: 04/20/19 08:21 Hydralazine HCl (Hydralazine) 50 mg PO Q8HR [facility] Stop: 04/20/19 08:31 Last Admin: 10/21/18 00:16 Dose: 50 mg Documented by: Piperacillin Sod/Tazobactam (Sod 3.375 gm/ Sodium Chloride) 100 mls @ 25 mls/hr IVP Q8HR [facility] Stop: 04/20/19 16:01 Last Infusion: 10/21/18 05:33 Dose: Infused Documented by: Vancomycin HCl 1,750 mg/ (Sodium Chloride) 500 mls @ 333.333 mls/hr IVPB Q24H [facility] Stop: 04/22/19 18:01 Losartan Potassium (Cozaar) 100 mg PO DAILY [facility] Stop: 04/21/19 09:01 Last Admin: 10/20/18 08:21 Dose: 100 mg Documented by: Melatonin (Melatonin) 6 mg PO HS PRN PRN Reason: Sleep Naloxone HCl (Narcan) 0.4 mg IVP Q2MPRN PRN PRN Reason: SEE COMMENTS Stop: 04/20/19 08:54 Omeprazole (Prilosec) 20 mg PO BIDAC [facility] Stop: 04/20/19 17:01 Last Admin: 10/20/18 15:44 Dose: 20 mg Documented by: Ondansetron HCl (Zofran) 4 mg IVP Q8HR PRN PRN Reason: Nausea And Vomiting Stop: 04/20/19 08:54 Spironolactone (Aldactone) 100 mg PO DAILY [facility]IO Stop: 04/21/19 09:01 Last Admin: 10/20/18 08:22 Dose: 100 mg Documented by: Torsemide (Demadex) 40 mg PO BIDDIURETIC [facility] Stop: 04/21/19 17:01 Last Admin: 10/20/18 15:45 Dose: 40 mg Documented by: Trazodone HCl (Trazodone) 50 mg PO HS PRN PRN Reason: Insomnia Stop: 04/20/19 14:59 Laboratory Tests 10/21/18 04:35 Hgb 9.3 L - Imaging and Cardiology Chest Xray: report reviewed Echo: report reviewed - EKG Interpretation EKG results cardiology: other (Telemetry reviewed with average HR previous 12 hours noted to be 82, SR. PVCs, PACs noted.) Consult Discharge Plan - Plan Referrals: Herminio Hawley DO [Resident] - 10/23/18 2:00 pm
[2018-10-21] MEDS: Torsemide 20 MG TABLET PO SCH ×2 (11:13→17:52)
[2018-10-21] MEDS: cloNIDine HCl 0.1 MG TABLET PO SCH ×2 (11:16→23:12)
[2018-10-21 13:05] LABS: Calcium 7.2 mg/dL (8.6-10.3); Potassium 4.4 mEq/L (3.5-5.1)
--- NOTE | 2018-10-21 14:13 | Internal Med Progress Note ---
Hospitalist Progress Note - Encounter Date of Encounter: 10/21/18 Time of Encounter: 14:10 - Subjective Interval History: Seen and examined at bedside. Patient is new to me, information obtained from chart review and patient report. Drowsy and tired on my exam. Does not provide much information. He actually has no complaints. Says plan is for him to return home at discharge. - Exam Vitals: Temp Pulse Resp BP Pulse Ox 98.5 F 79 16 182/82 96 10/21/18 11:48 10/21/18 11:48 10/21/18 11:48 10/21/18 11:48 10/21/18 11:48 Exam: Gen. morbid obese Skin: Free of rash and discoloration. Eyes: Sclera is white. There is no discharge from eyes. ENMT: Oral/pharyngeal mucosa is normal in appearance. There is no discharge from nose or ears. Respiratory: Normal breath sounds with no crackles and wheezes bilaterally. CV: Heart is regular with no gallop or murmur. GI: Abdomen is flat and soft with no palpable mass or visceromegaly. : There is no tenderness in patient's flanks bilaterally. Neuro exam: He has good strength in upper and lower extremities. He has normal eye movements. Psychiatric: He has normal affect. His thought process is appropriate to the situation. Extremities-right extremity with dressing intact brisk capillary refill pedal edema bilaterally - Assessment and Plan (1) Acute on chronic diastolic CHF (congestive heart failure), NYHA class 3 Current Visit: Yes Status: Acute Assessment and Plan: per hx. Symptomatic with SOB and lower extremity edema. 10/19/18 TTE with EF 60% and diastolic dysfunction. Initially diuresed with IV Lasix. Now on spironolactone and torsemide. Closely monitor fluid status. Cardiology foll owed (2) Pericardial effusion Current Visit: Yes Status: Acute Assessment and Plan: has known pericardial effusion. TTE with moderate pericardial effusion. Repeat TTE on 10/19/18 with small ventral pericardial effusion. No evidence of tamponade. Cardiology following. (3) Diabetic ulcer of right heel Current Visit: Yes Status: Acute Assessment and Plan: hx woo stage II ulceration of right calcaneus. S/p bedside debridement per podiatry. Continue IV Vanco and Zosyn for now. Wound cultures pending. (4) Diabetic ulcer of right great toe Current Visit: Yes Status: Acute Assessment and Plan: plan as noted above (5) Diabetes mellitus Current Visit: No Status: Chronic Assessment and Plan: per hx. Hgb A1c 7.2%. Holding home oral hypoglycemics. SSI. Monitor blood sugar and titrate PRN (6) CKD (chronic kidney disease) stage 3, GFR 30-59 ml/min Current Visit: No Status: Chronic Assessment and Plan: hx stage III CKD. Renal function stable. Intermittently monitor. (7) Elevated troponin Current Visit: Yes Status: Acute Assessment and Plan: Due to demand ischemia slightly elevated @ 0.07-flat adynamic 2D Echo Impressions: LVEF 60%. Moderate concentric left ventricular hypertrophy. Moderate left ventricular diastolic dysfunction. Mildly dilated left atrium. Normal right ventricular structure and function. Mild tricuspid regurgitation. No pulmonary hypertension. Mild aortic dilatation. Small circumferential pericardial effusion without echocardiographic evidence of tamponade. (8) DVT prophylaxis Current Visit: No Status: Acute Assessment and Plan: heparin - Time Spent with Patient Total time spent is greater than 50% in coordination of care (as documented) at patient's floor/unit and/or counseling patient: Internal Medicine: Result - Labs CBC & Chem 7: 10/21/18 04:35 10/21/18 12:19 Labs: Short CBC 10/21/18 Range/Units 04:35 WBC 7.7 (4.3-11.1) K/mcL Hgb 9.3 L (12.9-16.9) g/dL Hct 30.1 L (37.5-50.1) % Plt Count 396 (140-400) K/mcL Neutrophils # 5.2 (1.6-8.9) K/mcL BMP 10/21/18 12:19 Sodium 140 Potassium 4.4 Chloride 111 H Carbon Dioxide 22 L BUN 27 H Creatinine 2.07 H Glucose 142 H Calcium 7.2 L - ABG Interpretation ABG results: PT/INR, D-dimer PT 12.2 Seconds (9.4-12.1) H 10/19/18 00:40 Consult Discharge Plan - Plan Referrals: Herminio Hawley DO [Resident] - 10/23/18 2:00 pm (3) Diabetic ulcer of right heel Qualifiers: Diabetes mellitus type: type 2 Non-pressure ulcer stage: with fat layer exposed Qualified Code(s): E11.621 - Type 2 diabetes mellitus with foot ulcer; L97.412 - Non-pressure chronic ulcer of right heel and midfoot with fat layer exposed (5) Diabetes mellitus Qualifiers: Chronic kidney disease stage: unspecified stage Qualified Code(s): E08.22 - Diabetes mellitus due to underlying condition with diabetic chronic kidney disease; Z79.4 - retirement (current) use of insulin
[2018-10-21] MEDS ORDERED: *HR* Dextrose 50 % in Water (Syg) 50 ML SYRINGE IVP PRN (14:14)
[2018-10-21] MEDS ORDERED: Dextrose Gel 15 GM/37.5 ML TUBE PO PRN ×2 (14:14)
[2018-10-21] MEDS ORDERED: D5% in Water 1,000 ML IVC PRN (14:14)
[2018-10-21] MEDS: Insulin LISPRO 300 UNITS/3 ML VIAL SQ SCH ×2 (17:54→23:12)
[2018-10-21] MEDS: Acetaminophen 325 MG TABLET PO PRN (23:06)
[2018-10-22] MEDS: Piperacillin/Tazobactam 3.375 GM in 0.9 % Sodium Chloride Mini Bag 100 ML IVP SCH ×2 (01:09→08:57)
[2018-10-22] MEDS: hydrALAZINE 25 MG TABLET PO SCH ×4 (01:09→23:29)
[2018-10-22] MEDS: *HR* Heparin 5,000 UNIT/ML VIAL SQ SCH ×2 (04:22→18:17)
[2018-10-22] MEDS: Insulin LISPRO 300 UNITS/3 ML VIAL SQ SCH ×4 (08:55→20:45)
[2018-10-22] MEDS: Torsemide 20 MG TABLET PO SCH ×2 (08:56→16:13)
[2018-10-22] MEDS: cloNIDine HCl 0.1 MG TABLET PO SCH ×2 (08:56→20:46)
[2018-10-22 09:33] LABS: Albumin/Globulin Ratio 0.7 (1.1-2.2); Bilirubin,Total 0.3 mg/dL (0.3-1.0); Calcium 7.6 mg/dL (8.6-10.3); Potassium 4.4 mEq/L (3.5-5.1)
[2018-10-22 09:36] LABS: Hematocrit 28.1 % (37.5-50.1); Hemoglobin 8.7 g/dL (12.9-16.9); Mean Corpuscular Hemoglobin 26.1 pg (28.0-33.3); Mean Corpuscular Volume 84.4 fL (83.0-100.0); Mean Platelet Volume 9.1 fL (9.4-12.4); Platelet Count 379 K/mcL (140-400); Red Blood Count 3.33 M/mcL (4.19-5.50); Red Cell Distribution Width 13.7 % (11.5-14.5)
--- NOTE | 2018-10-22 14:23 | Podiatry Progress Note ---
Date of Encounter: 10/22/18 Time of Encounter: 13:50 - Assessment and Plan (1) Diabetic ulcer of right great toe Current Visit: Yes Status: Acute Assessment: -Braun stage II ulcer right hallux -No erythema no lymphangitis, no drainage -Generalized edema/morbidly obese -WBC 6.7 -ESR 116, CRP 10 -Right foot x-ray without evidence of osteomyelitis. It does show evidence of soft tissue swelling throughout the right foot. -MRI with evidence of diffuse soft tissue swelling and subcutaneous edema. -ABIs show bilateral lower extremity waveforms are within normal limits, Non compressible vessels may masks underlying disease, and bilateral arterial duplex evaluation with high levels of clinical suspicion -TCP O2 shows bilateral transcutaneous oxygen levels are consistent with healing Plan: -Cleaned with sterile normal saline and pat dry. -Covered 4x4 dry gauze and Kerlix -Secured with NATIVIDAD -Continue daily dressing changes -Will continue to monitor (2) Diabetic ulcer of right heel Current Visit: Yes Status: Acute Assessment: -Braun stage 2 ulceration right calcaneous -Macerated tissue appears healing -No erythema, no lymphangitis, minimal serosanguineous drainage -Generalized edema/morbidly obese -WBC 6.7 -ESR 116, CRP 10 -Right foot x-ray without evidence of osteomyelitis. It does show evidence of soft tissue swelling throughout the right foot. -MRI with evidence of diffuse soft tissue swelling and subcutaneous edema. -ABIs show bilateral lower extremity waveforms are within normal limits, Non compressible vessels may masks underlying disease, and bilateral arterial duplex evaluation with high levels of clinical suspicion -TCP O2 shows bilateral transcutaneous oxygen levels are consistent with healing Plan: -Cleansed wounds with sterile normal saline and pat dry -Painted right calcaneous with betadine -Covered right calcaneous ulcer with calcium alginate, 4x4 dry gauze, and kerlix. Secured with NATIVIDAD. -Continue to have patient wear heel medix boots -Continue dressing changes as ordered -Follow up with [facility] outpatient after discharge -Consider Vascular consult outpatient -Will continue to monitor Qualifiers: Diabetes mellitus type: type 2 Non-pressure ulcer stage: with fat layer exposed Qualified Code(s): E11.621 - Type 2 diabetes mellitus with foot ulcer; L97.412 - Non-pressure chronic ulcer of right heel and midfoot with fat layer exposed Subjective Principal diagnosis: CHF Interval history: Patient is resting, aroused easily with verbal stimuli, oriented x 3. Patient denies any chest pain, shortness of breath, or calf pain. Patient denies any fever, chills, n/v/d. Objective - Vital Signs Vital Signs: Vital Signs Temp Pulse Resp BP Pulse Ox 10/22/18 12:03 98.5 F 81 16 183/93 97 10/22/18 11:07 16 97 10/22/18 07:07 98.8 F 80 16 195/96 95 10/22/18 04:10 18 99 10/22/18 03:59 98.7 F 81 16 179/101 97 10/22/18 00:04 98.8 F 81 16 171/90 98 10/21/18 21:33 16 97 10/21/18 20:09 97.7 F 77 16 179/97 98 10/21/18 15:55 18 95 10/21/18 15:42 98.4 F 73 18 175/95 98 Intake and Output 10/21/18 10/22/18 10/22/18 23:59 07:59 15:59 Intake Total 100 / 540 100 / 220 120 / 220 Output Total 900 / 1800 900 / 1800 Balance 100 / 540 -800 / -1580 -780 / -1580 Intake: IV Fluids 100 / 300 100 / 100 Zosyn 3.375 GM In 0.9 % Sodium 100 / 300 100 / 100 Chloride (Mini-Bag +) 100 ML @ 25 mls/hr IVP Q8HR [facility] Rx#: [id number] Oral 120 / 120 Output: Urine 900 / 1800 900 / 1800 Other: Meal Breakfast Percent of Meal Consumed 50% Blood Glucose* 174 148 155 - Exam Exam: Constitutional: Resting, aroused easily with verbal stimuli, oriented x 3, no acute distress noted Vascular: Cap refill less than 3 seconds to all digits, Doppler DP/PT bilat extremities, skin warm from tibia to toes, no pain with calf squeeze Neurological: Diminished protective sensation, normal plantar response Dermatological: Braun grade 2 ulceration noted right medial hallux and right calcaneous. Macerated tissue appears improved. Minimal serosanguineous drainage noted. Base of right hallux pink. No drainage, no odor. Right #5 amputated. Musculoskeletal: 3/5 muscle strength and normal tone bilaterally - Lab Result Diagrams: 10/22/18 08:46 10/22/18 08:46 Labs: Abnormal lab results RBC 3.33 M/mcL (4.19-5.50) L 10/22/18 08:46 Hgb 8.7 g/dL (12.9-16.9) L 10/22/18 08:46 Hct 28.1 % (37.5-50.1) L 10/22/18 08:46 MCH 26.1 pg (28.0-33.3) L 10/22/18 08:46 MCHC 31.0 g/dL (31.6-35.5) L 10/22/18 08:46 Plt Count 432 K/mcL (140-400) H 10/19/18 00:40 MPV 9.1 fL (9.4-12.4) L 10/22/18 08:46 0.7 K/mcL (0.0-0.6) H 10/21/18 04:35 ESR 116 mm/hr (0-10) H 10/19/18 16:18 PT 12.2 Seconds (9.4-12.1) H 10/19/18 00:40 Chloride 109 mEq/L (98-107) H 10/22/18 08:46 Carbon Dioxide 22 mEq/L (23-29) L 10/21/18 12:19 BUN 27 mg/dL (6-20) H 10/22/18 08:46 2.23 mg/dL (0.70-1.30) H 10/22/18 08:46 Est GFR ( Amer) 39 (> 60) L 10/22/18 08:46 Est GFR (Non-Af Amer) 32 (> 60) L 10/22/18 08:46 Glucose 153 mg/dL (70-105) H 10/22/18 08:46 POC Glucose 174 mg/dL (70-99) H 10/21/18 20:21 7.2 % (-5.6) H 10/19/18 16:18 Calcium 7.6 mg/dL (8.6-10.3) L 10/22/18 08:46 0.06 ng/mL (< 0.04) H* 10/20/18 02:00 10 mg/L (Less than 10) H 10/19/18 16:18 B-Natriuretic Peptide 663 pg/mL (Less than 100) H 10/19/18 00:40 5.0 g/dL (6.4-8.9) L 10/22/18 08:46 2.0 g/dL (3.5-5.7) L 10/22/18 08:46 0.7 (1.1-2.2) L 10/22/18 08:46 LDL Cholesterol, Calc 123 mg/dL (0-99) H 10/20/18 02:00 35 mg/dL (40-59) L 10/20/18 02:00 5.1 (0-4.9) H 10/20/18 02:00 Vancomycin Trough 25 mcg/mL (5-10) H 10/22/18 08:46 Consult Discharge Plan - Plan Referrals: Herminio Hawley DO [Resident] - 10/23/18 2:00 pm
--- NOTE | 2018-10-22 15:29 | Internal Med Progress Note ---
Hospitalist Progress Note - Encounter Date of Encounter: 10/22/18 Time of Encounter: 15:18 - Subjective Interval History: Mr. 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 He denied any CP. In the ER his EKG showed normal sinus rhythm and some nonspecific ST, T changes. His initial Trop @ 0.07. When I examined his feet, on the Rt foot heel he does have diffuse swelling, some thick white colore d / necrotic tissue over heel with bad odor. Pt stated he has been following with wound care at [facility]. He was admitted in the hospital and started him on IV Lasix and empirical abx for his Rt heel infection. Pt was seen by podiatirst who did bed side debridement. He denied any CP. His SOB and TIRADO also better now. - Exam Vitals: Temp Pulse Resp BP Pulse Ox 98.5 F 81 16 183/93 97 10/22/18 12:03 10/22/18 12:03 10/22/18 12:03 10/22/18 12:03 10/22/18 12:03 Exam: Gen: Alert, awake, Oriented to time,place and person Chest: Diminished breath sounds B/L, No wheezing, No crackles, No rales Heart: S1S2+ RRR No murmurs Abd: Soft, NT, BS +, No organomegaly Ext: chronic edema, pulses are palpable, No calf tenderness.. s/p debridment over Rt heel ulcer.. dressing is on. Neuro : Benign findings Skin: No rash. - Assessment and Plan (1) Acute on chronic diastolic CHF (congestive heart failure), NYHA class 3 Current Visit: Yes Status: Acute Assessment and Plan: Slowly improving switched to PO torsemide His Cr started worsening now.. So d/c Aldactone cont close monitoring renal function (2) Diabetic ulcer of right heel Current Visit: Yes Status: Acute Assessment and Plan: hx woo stage II ulceration of right calcaneus. S/p bedside debridement per podiatry. Reviewed foot X ray and MRI of Foot - no osteomyelitis noticed d/c IV Abx Zosyn and Vanc started him on Doxy another 10 days course f/u with Account Assistant / Wound care as an out pt (3) Diabetes mellitus Current Visit: No Status: Chronic Assessment and Plan: per hx. Hgb A1c 7.2 on ISS and ADA diet (4) DVT prophylaxis Current Visit: No Status: Acute Assessment and Plan: Heparin SQ (5) CKD (chronic kidney disease) stage 3, GFR 30-59 ml/min Current Visit: No Status: Chronic Assessment and Plan: hx stage III CKD His Cr slowly going up held Aldactone d/c Vanc changed abx to Doxy (6) Pericardial effusion Current Visit: Yes Status: Acute Assessment and Plan: has known pericardial effusion. TTE with moderate pericardial effusion. Repeat TTE on 10/19/18 with small ventral pericardial effusion. No evidence of tamponade. Switched to Torsemide (7) Elevated troponin Current Visit: Yes Status: Acute Assessment and Plan: Due to demand ischemia slightly elevated @ 0.07-flat adynamic (8) Diabetic ulcer of right great toe Current Visit: Yes Status: Acute - Time Spent with Patient Total time spent is greater than 50% in coordination of care (as documented) at patient's floor/unit and/or counseling patient: Internal Medicine: Result - Labs CBC & Chem 7: 10/22/18 08:46 10/22/18 08:46 Labs: Short CBC 10/22/18 Range/Units 08:46 WBC 6.7 (4.3-11.1) K/mcL Hgb 8.7 L (12.9-16.9) g/dL Hct 28.1 L (37.5-50.1) % Plt Count 379 (140-400) K/mcL BMP 10/22/18 08:46 Sodium 139 Potassium 4.4 Chloride 109 H Carbon Dioxide 23 BUN 27 H Creatinine 2.23 H Glucose 153 H Calcium 7.6 L Liver Function 10/22/18 Range/Units 08:46 Total Bilirubin 0.3 (0.3-1.0) mg/dL AST 16 (13-39) Units/L ALT 12 (7-52) Units/L Alkaline Phosphatase 80 (34-104) Units/L Albumin 2.0 L (3.5-5.7) g/dL - ABG Interpretation ABG results: PT/INR, D-dimer PT 12.2 Seconds (9.4-12.1) H 10/19/18 00:40 Consult Discharge Plan - Plan Referrals: Herminio Hawley DO [Resident] - 10/23/18 2:00 pm (2) Diabetic ulcer of right heel Qualifiers: Diabetes mellitus type: type 2 Non-pressure ulcer stage: with fat layer exposed Qualified Code(s): E11.621 - Type 2 diabetes mellitus with foot ulcer; L97.412 - Non-pressure chronic ulcer of right heel and midfoot with fat layer exposed (3) Diabetes mellitus Qualifiers: Chronic kidney disease stage: stage 3 (moderate)
[2018-10-22] MEDS: Doxycycline 100 MG CAPSULE PO SCH (20:46)
[2018-10-23] MEDS: *HR* Heparin 5,000 UNIT/ML VIAL SQ SCH (06:04)
[2018-10-23] MEDS: Insulin LISPRO 300 UNITS/3 ML VIAL SQ SCH ×3 (07:19→15:36)
[2018-10-23] MEDS: hydrALAZINE 25 MG TABLET PO SCH ×2 (07:50→15:35)
[2018-10-23] MEDS: cloNIDine HCl 0.1 MG TABLET PO SCH (07:50)
[2018-10-23] MEDS: Doxycycline 100 MG CAPSULE PO SCH (07:50)
[2018-10-23] MEDS: Torsemide 20 MG TABLET PO SCH ×2 (07:50→15:35)
[2018-10-23 08:47] LABS: Hematocrit 27.8 % (37.5-50.1); Hemoglobin 8.6 g/dL (12.9-16.9); Mean Corpuscular HGB Conc 30.9 g/dL (31.6-35.5); Mean Corpuscular Hemoglobin 25.8 pg (28.0-33.3); Mean Corpuscular Volume 83.5 fL (83.0-100.0); Mean Platelet Volume 8.9 fL (9.4-12.4); Platelet Count 397 K/mcL (140-400); Red Blood Count 3.33 M/mcL (4.19-5.50); Red Cell Distribution Width 13.7 % (11.5-14.5)
[2018-10-23 09:08] LABS: Calcium 7.7 mg/dL (8.6-10.3); Magnesium 1.5 mg/dL (1.6-2.6); Potassium 4.2 mEq/L (3.5-5.1)
--- NOTE | 2018-10-23 12:21 | Discharge Summary ---
- NOTES TO OUTPATIENT PROVIDER Notes to Outpatient Provider: Follow up with PCP in one week. Follow-up with the nephrology in 1-2 weeks. Follow-up with wound care at [facility]. Medication changes: We increased your Bumex to 2mg PO BID. You should not be taking Labetalol since you are on Coreg. Your BP not well controlled so we increased your Clonidine to 0.2mg PO BID and Hydralazine 75mg PO TID. Orders not resulted at time of discharge: Pending orders 10/24/18 04:00 Complete Blood Count w/o Diff [HEME] [place] 04010/25/18 04:00 Complete Blood Count w/o Diff [HEME] AM 04010/26/18 04:00 Complete Blood Count w/o Diff [HEME] AM 399 Date of Encounter: 10/23/18 Time of Encounter: 12:06 - Discharge Diagnosis (1) Acute on chronic diastolic CHF (congestive heart failure), NYHA class 3 Priority: Primary Status: Acute (2) Pericardial effusion Priority: Primary Status: Acute (3) Elevated troponin Priority: Secondary Status: Acute (4) Diabetic ulcer of right heel Priority: Primary Status: Acute Qualifiers: Diabetes mellitus type: type 2 Non-pressure ulcer stage: with fat layer exposed Qualified Code(s): E11.621 - Type 2 diabetes mellitus with foot ulcer; L97.412 - Non-pressure chronic ulcer of right heel and midfoot with fat layer exposed (5) Diabetes mellitus Priority: Secondary Status: Chronic Qualifiers: Chronic kidney disease stage: stage 3 (moderate) Qualified Code(s): E08.22 - Diabetes mellitus due to underlying condition with diabetic chronic kidney disease; N18.3 - Chronic kidney disease, stage 3 (moderate); Z79.4 - custodial (current) use of insulin (6) DVT prophylaxis Priority: Secondary Status: Acute (7) CKD (chronic kidney disease) stage 3, GFR 30-59 ml/min Priority: Secondary Status: Chronic (8) Diabetic ulcer of right great toe Priority: Secondary Status: Acute Hospital course: Mr. 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 He denied any CP. In the ER his EKG showed normal sinus rhythm and some nonspecific ST, T changes. His initial Trop @ 0.07. When I examined his feet, on the Rt foot heel he does have diffuse swelling, some thick white colored / necrotic tissue over heel with bad odor. Pt stated he has been following with wound care at [facility]. He was admitted in the hospital and started him on IV Lasix and empirical abx for his Rt heel infection. Pt was seen by radio artist who did bed side debridement. His CXR showed possible pericardial effusion . However his echocardiogram showed improved pericardial effusion , with no signs of cardiac tamponade. His trop were slightly elevated @ 0.07 and adynamic. He denied any CP. Cardiology evaluated the pt and did not recommend any further work up. Recommend to continue diuretics. His Rt heel wound looks better now after debridement. His MRI of Foot did not show any osteomyelitis. Will d/c him home with PO Abx Doxy for total 10 days course and recommend to f/u with wound care / Media Developer at [facility]. - Time Spent with Patient Total time spent providing and/or coordinating discharge services: - Discharge Medications Prescriptions: New Doxycycline 100 mg PO BID #12 capsule Bumetanide 2 mg PO BID #60 tablet cloNIDine HCl [Clonidine HCl] 0.2 mg PO BID #60 tab Hydralazine HCl 75 mg PO TID #135 tablet Continued Albuterol Sulfate [Ventolin Hfa] 2 puff IH QID Atorvastatin [Lipitor] 40 mg PO QPM Carvedilol [Coreg] 25 mg PO BID Glucagon,Human Recombinant [Glucagon Emergency Kit] 1 mg IM PRN PRN PRN Reason: BLOOD SUGAR <60 Losartan Potassium 100 mg PO DAILY Melatonin 5 mg PO HS PRN PRN Reason: Sleep Metoclopramide [Reglan] 10 mg PO ACHS Pantoprazole Sodium [Protonix] 40 mg PO BID Spironolactone 100 mg PO DAILY Trazodone HCl 50 mg PO HS PRN PRN Reason: Insomnia glipiZIDE [Glucotrol] 2.5 mg PO BIDWM #60 tablet Carvedilol 12.5 mg PO BID Discontinued Bumetanide [Bumex] 1 mg PO BID cloNIDine HCl [CloNIDine HCl] 0.1 mg PO BID Furosemide [Lasix] 40 mg PO BID hydrALAZINE [HydrALAZINE] 50 mg PO TID Labetalol HCl 400 mg PO Q12H Home Medications: Albuterol Sulfate [Ventolin Hfa] 2 puff IH QID 06/28/18 [History] Atorvastatin [Lipitor] 40 mg PO QPM 06/28/18 [History] Carvedilol [Coreg] 25 mg PO BID 09/05/18 [History] Glucagon,Human Recombinant [Glucagon Emergency Kit] 1 mg IM PRN PRN 09/05/18 [History] Losartan Potassium 100 mg PO DAILY 09/05/18 [History] Melatonin 5 mg PO HS PRN 09/05/18 [History] Metoclopramide [Reglan] 10 mg PO ACHS 09/05/18 [History] Pantoprazole Sodium [Protonix] 40 mg PO BID 09/05/18 [History] Spironolactone 100 mg PO DAILY 09/05/18 [History] Trazodone HCl 50 mg PO HS PRN 09/05/18 [History] glipiZIDE [Glucotrol] 2.5 mg PO BIDWM #60 tablet 09/05/18 [Rx] Carvedilol 12.5 mg PO BID 10/19/18 [History] Bumetanide 2 mg PO BID #60 tablet 10/23/18 [Rx] Doxycycline 100 mg PO BID #12 capsule 10/23/18 [Rx] Hydralazine HCl 75 mg PO TID #135 tablet 10/23/18 [Rx] cloNIDine HCl [Clonidine HCl] 0.2 mg PO BID #60 tab 10/23/18 [Rx] Allergies/Adverse Reactions: Allergy/AdvReac Type Severity Reaction Status Date / Time amlodipine Allergy Swelling Verified 10/19/18 12:56 of Lip/Tongue/Throat Iodinated Contrast- Oral and Allergy kidney Verified 10/19/18 12:56 IV Dye funtion iopamidol Allergy Hives Verified 10/19/18 12:56 broccoli Allergy Swelling Uncoded 10/19/18 12:56 of Lip/Tongue/Throat Date of admission: 10/19/18 14:57 Primary care physician: El Hawley MD Consults: 10/19/18 08:58 Consult to Cardiology [CONS] Routine Comment: Consulting Provider: Cardiology [facility]ia Reason for Consult: SOB.. Pericardial effusion / CHF exacerbation Time Notified: 08:58 Call Completed: Yes 10/19/18 11:18 Consult to Wound Care [CONS] Routine Reason for Consult: Wounds right foot, Heel and great toe Call Completed: No 10/19/18 15:21 Consult to Nurse Navigator [CONS] Routine Comment: CHF 10/19/18 15:58 Consult to Podiatry [CONS] Routine Consulting Provider: [facility] Reason for Consult: Acute Rt heel infection Time Notified: 15:59 Call Completed: Yes - Constitutional Vitals: Temp Pulse Resp BP Pulse Ox 98.3 F 77 18 164/80 96 10/23/18 11:03 10/23/18 11:03 10/23/18 11:03 10/23/18 11:03 10/23/18 11:03 General appearance: Present: A&O X 3, no acute distress, answers questions ap propriately Exam: Gen: Alert, awake, Oriented to time,place and person Chest: Diminished breath sounds B/L, No wheezing, No crackles, No rales Heart: S1S2+ RRR No murmurs Abd: Soft, NT, BS +, No organomegaly Ext: chronic edema, pulses are palpable, No calf tenderness.. s/p debridment over Rt heel ulcer.. dressing is on. Neuro : Benign findings Skin: No rash. - Patient Status Disposition: Home Health Service Condition: Good Overall status at discharge: patient is back to baseline - Discharge Instructions Follow Up With: Herminio Hawley DO [Resident] - 10/23/18 2:00 pm Shiva Reynolds MD [Partnered Physician] - Forms: ED Satisfaction Letter - Diet and Activity Activity: increase activity as tolerated Diet: low salt diet
--- NOTE | 2018-10-23 14:50 | Physician Discharge Referral ---
Home Health/Hosp Referral Info Transfer to: Home Health Provider in Charge Post Discharge: PCP - Diagnosis (1) Acute on chronic diastolic CHF (congestive heart failure), NYHA class 3 Status: Acute (2) Pericardial effusion Status: Acute (3) Elevated troponin Status: Acute (4) Diabetic ulcer of right heel Status: Acute (5) Diabetes mellitus Status: Chronic (6) DVT prophylaxis Status: Acute (7) CKD (chronic kidney disease) stage 3, GFR 30-59 ml/min Status: Chronic (8) Diabetic ulcer of right great toe Status: Acute - Respiratory Orders Smoking Cessation: Smoking cessation has been advised. For more information, call the [place] Tobacco Quit Line at 7-369-NJPR-NOW. - Services Needed Following services are medically necessary services: Nursing, Physical Therapy, Occupational Therapy - Transfer Medications Prescriptions: Bumetanide 2 mg PO BID #60 tablet cloNIDine HCl [Clonidine HCl] 0.2 mg PO BID #60 tab Doxycycline 100 mg PO BID #12 capsule Hydralazine HCl 75 mg PO TID #135 tablet Home Medications: Albuterol Sulfate [Ventolin Hfa] 2 puff IH QID 06/28/18 [History] Atorvastatin [Lipitor] 40 mg PO QPM 06/28/18 [History] Carvedilol [Coreg] 25 mg PO BID 09/05/18 [History] Glucagon,Human Recombinant [Glucagon Emergency Kit] 1 mg IM PRN PRN 09/05/18 [History] Losartan Potassium 100 mg PO DAILY 09/05/18 [History] Melatonin 5 mg PO HS PRN 09/05/18 [History] Metoclopramide [Reglan] 10 mg PO ACHS 09/05/18 [History] Pantoprazole Sodium [Protonix] 40 mg PO BID 09/05/18 [History] Spironolactone 100 mg PO DAILY 09/05/18 [History] Trazodone HCl 50 mg PO HS PRN 09/05/18 [History] glipiZIDE [Glucotrol] 2.5 mg PO BIDWM #60 tablet 09/05/18 [Rx] Carvedilol 12.5 mg PO BID 10/19/18 [History] Bumetanide 2 mg PO BID #60 tablet 10/23/18 [Rx] Doxycycline 100 mg PO BID #12 capsule 10/23/18 [Rx] Hydralazine HCl 75 mg PO TID #135 tablet 10/23/18 [Rx] cloNIDine HCl [Clonidine HCl] 0.2 mg PO BID #60 tab 10/23/18 [Rx] Allergies/Adverse Reactions: Allergy/AdvReac Type Severity Reaction Status Date / Time amlodipine Allergy Swelling Verified 10/19/18 12:56 of Lip/Tongue/Throat Iodinated Contrast- Oral and Allergy kidney Verified 10/19/18 12:56 IV Dye funtion iopamidol Allergy Hives Verified 10/19/18 12:56 broccoli Allergy Swelling Uncoded 10/19/18 12:56 of Lip/Tongue/Throat Certification: Further, I certify that my clinical findings support that this patient is homebound (i.e. absences from home require considerable and taxing effort and are for medical reasons or voodoo services or infrequently or short duration when for other reasons) because: Homebound Reason: Patient requires assistance of a person or device to safely leave home Attestation: My signature below is to certify that this patient is under my care and that I, or nurse practitioner, or a physician's mortgage assistant working with me, has a [id number] encounter with this patient.
[2018-10-23 15:16] VITALS: BP 171/98
== END 2018-10-23 18:07 | disposition home health service (06) | DRG 194 ==
LOC: EMEROOARM 00:26 → 3BNU 00:26 → SUATTDRO 14:57
PROVIDERS: ADMIT Family Medicine; ATTEND Family Medicine

== ENCOUNTER 2018-12-13 23:06 | Observation (INO) ==
[2018-12-14] MEDS ORDERED: Bumetanide 1 MG/4 ML VIAL IVP ONE (00:58)
[2018-12-14 01:29] LABS: Basophils % 0.4 %; Eosinophils # 0.3 K/mcL (0.0-0.6); Eosinophils % 4.1 %; Hematocrit 30.9 % (37.5-50.1); Hemoglobin 9.3 g/dL (12.9-16.9); Immature Granulocytes % 0.3 % (0-4); Immature Platelets 0.7 % (1.1-6.1); Lymphocytes # 1.2 K/mcL (0.6-4.6); Lymphocytes % 15.4 %; Mean Corpuscular HGB Conc 30.1 g/dL (31.6-35.5); Mean Corpuscular Hemoglobin 25.2 pg (28.0-33.3); Mean Corpuscular Volume 83.7 fL (83.0-100.0); Mean Platelet Volume 9.4 fL (9.4-12.4); Monocytes # 0.6 K/mcL (0.0-1.3); Monocytes % 7.2 %; Neutrophils # 5.5 K/mcL (1.6-8.9); Platelet Count 353 K/mcL (140-400); Red Blood Count 3.69 M/mcL (4.19-5.50); Red Cell Distribution Width 13.2 % (11.5-14.5); Segmented Neutrophils % 72.6 %; White Blood Count 7.6 K/mcL (4.3-11.1)
[2018-12-14 01:58] LABS: Albumin 2.2 g/dL (3.5-5.7); Albumin/Globulin Ratio 0.8 (1.1-2.2); Bilirubin,Direct 0.1 mg/dL (0.0-0.2); Bilirubin,Indirect 0.5 mg/dL (0.0-1.2); Bilirubin,Total 0.6 mg/dL (0.3-1.0); Calcium 7.3 mg/dL (8.6-10.3); Globulin 2.8 g/dL (2.4-3.5); Potassium 3.3 mEq/L (3.5-5.1); Troponin I 0.06 ng/mL (< 0.04)
[2018-12-14] MEDS ORDERED: Naloxone 0.4 MG/ML INJ IVP PRN (07:26)
[2018-12-14] MEDS ORDERED: MOM Conc 10 ML UD.LIQ PO PRN (07:26)
[2018-12-14] MEDS ORDERED: Ondansetron 4 MG/2 ML VIAL IVP PRN (07:26)
[2018-12-14] MEDS ORDERED: *HR* Promethazine 25 MG/ML VIAL IVP PRN (07:26)
[2018-12-14] MEDS ORDERED: Mag Hydrox/Al Hydrox/Simeth 30 ML UDC PO PRN (07:26)
[2018-12-14] MEDS ORDERED: Acetaminophen 325 MG TABLET PO PRN (07:26)
[2018-12-14] MEDS ORDERED: *HR* Dextrose 50 % in Water (Syg) 50 ML SYRINGE IVP PRN (07:29)
[2018-12-14] MEDS ORDERED: Dextrose Gel 15 GM/37.5 ML TUBE PO PRN ×2 (07:29)
[2018-12-14] MEDS ORDERED: D5% in Water 1,000 ML IVC PRN (07:29)
[2018-12-14] MEDS: Insulin LISPRO 300 UNITS/3 ML VIAL SQ SCH ×4 (08:54→21:33)
[2018-12-14] MEDS ORDERED: carvediloL 6.25 MG TABLET PO SCH (09:00)
[2018-12-14] MEDS ORDERED: cloNIDine HCl 0.1 MG TABLET PO SCH (09:00)
[2018-12-14] MEDS ORDERED: carvediloL 25 MG TABLET PO SCH (09:00)
[2018-12-14] MEDS: Furosemide 40 MG/4 ML VIAL IVP SCH ×2 (10:06→17:30)
[2018-12-14] MEDS: hydrALAZINE 25 MG TABLET PO SCH ×3 (10:06→21:55)
[2018-12-14] MEDS: cloNIDine HCl 0.1 MG TABLET PO SCH ×2 (15:13→21:55)
[2018-12-15 05:04] LABS: Basophils % 0.4 %; Eosinophils # 0.4 K/mcL (0.0-0.6); Eosinophils % 5.1 %; Hematocrit 32.5 % (37.5-50.1); Hemoglobin 9.9 g/dL (12.9-16.9); Immature Granulocytes % 0.3 % (0-4); Lymphocytes # 1.3 K/mcL (0.6-4.6); Lymphocytes % 17.4 %; Mean Corpuscular HGB Conc 30.5 g/dL (31.6-35.5); Mean Corpuscular Hemoglobin 25.2 pg (28.0-33.3); Mean Corpuscular Volume 82.7 fL (83.0-100.0); Mean Platelet Volume 9.2 fL (9.4-12.4); Monocytes # 0.5 K/mcL (0.0-1.3); Neutrophils # 5.3 K/mcL (1.6-8.9); Platelet Count 390 K/mcL (140-400); Red Blood Count 3.93 M/mcL (4.19-5.50); Red Cell Distribution Width 13.1 % (11.5-14.5); Segmented Neutrophils % 69.8 %; White Blood Count 7.5 K/mcL (4.3-11.1)
[2018-12-15 05:24] LABS: Calcium 7.3 mg/dL (8.6-10.3); Magnesium 1.8 mg/dL (1.6-2.6); Potassium 3.5 mEq/L (3.5-5.1)
[2018-12-15] MEDS: cloNIDine HCl 0.1 MG TABLET PO SCH ×3 (08:40→21:55)
[2018-12-15] MEDS: Furosemide 40 MG/4 ML VIAL IVP SCH ×2 (08:41→17:07)
[2018-12-15] MEDS: hydrALAZINE 25 MG TABLET PO SCH ×3 (08:41→21:54)
[2018-12-15] MEDS: Insulin LISPRO 300 UNITS/3 ML VIAL SQ SCH ×4 (08:42→21:51)
[2018-12-16 02:33] LABS: Calcium 7.2 mg/dL (8.6-10.3); Potassium 3.7 mEq/L (3.5-5.1)
[2018-12-16] MEDS: hydrALAZINE 25 MG TABLET PO SCH ×3 (08:21→21:48)
[2018-12-16] MEDS: cloNIDine HCl 0.1 MG TABLET PO SCH ×3 (08:21→21:48)
[2018-12-16] MEDS: Furosemide 40 MG/4 ML VIAL IVP SCH ×2 (08:21→15:33)
[2018-12-16] MEDS: Insulin LISPRO 300 UNITS/3 ML VIAL SQ SCH ×4 (08:22→19:55)
[2018-12-16] MEDS: Metoprolol XL (24 HR) Succ 50 MG TAB.ER.24H PO SCH (08:32)
[2018-12-17] MEDS: Insulin LISPRO 300 UNITS/3 ML VIAL SQ SCH ×4 (08:34→20:47)
[2018-12-17] MEDS: Furosemide 40 MG/4 ML VIAL IVP SCH ×2 (08:38→16:19)
[2018-12-17] MEDS: Metoprolol XL (24 HR) Succ 50 MG TAB.ER.24H PO SCH (08:39)
[2018-12-17] MEDS: cloNIDine HCl 0.1 MG TABLET PO SCH ×3 (08:39→20:12)
[2018-12-17] MEDS: hydrALAZINE 25 MG TABLET PO SCH ×3 (08:39→20:12)
[2018-12-17 09:03] LABS: Hematocrit 32.1 % (37.5-50.1); Hemoglobin 10.1 g/dL (12.9-16.9); Mean Corpuscular HGB Conc 31.5 g/dL (31.6-35.5); Mean Corpuscular Hemoglobin 25.6 pg (28.0-33.3); Mean Corpuscular Volume 81.3 fL (83.0-100.0); Mean Platelet Volume 10.5 fL (9.4-12.4); Platelet Count 275 K/mcL (140-400); Red Blood Count 3.95 M/mcL (4.19-5.50); Red Cell Distribution Width 13.2 % (11.5-14.5)
[2018-12-17 09:06] LABS: Calcium 7.3 mg/dL (8.6-10.3)
[2018-12-18 02:38] LABS: Potassium 3.9 mEq/L (3.5-5.1)
[2018-12-18] MEDS: Insulin LISPRO 300 UNITS/3 ML VIAL SQ SCH ×2 (07:30→12:52)
[2018-12-18] MEDS: Furosemide 40 MG/4 ML VIAL IVP SCH (08:09)
[2018-12-18] MEDS: cloNIDine HCl 0.1 MG TABLET PO SCH (08:09)
[2018-12-18] MEDS: hydrALAZINE 25 MG TABLET PO SCH (08:09)
[2018-12-18] MEDS: Metoprolol XL (24 HR) Succ 50 MG TAB.ER.24H PO SCH (08:09)
[2018-12-18 12:44] VITALS: BP 150/82
== END 2018-12-18 15:53 | disposition home health service (06) ==
LOC: 3BNU 23:06 → EMEROOARM 23:06 → 3BNU 12-14 05:45
PROVIDERS: ADMIT Family Medicine; ATTEND Family Medicine